=== PATIENT | female | born 1985 | race Two or more races ===

== ENCOUNTER 2016-06-13 22:46 | Emergency (ER) | payer MEDICARE, MEDICAID ==
[2016-06-14 01:51] LABS: APPEARANCE,URINE SLIGHTLY-CLOUDY; BILIRUBIN,URINE NEGATIVE (NEGATIVE); GLUCOSE, URINE NEGATIVE (NEGATIVE); KETONES,URINE NEGATIVE (NEGATIVE); LEUKOCYTE ESTERASE,URINE NEGATIVE (NEGATIVE); NITRITE,URINE NEGATIVE (NEGATIVE); PROTEIN,URINE NEGATIVE (NEGATIVE); URINE SPECIFIC GRAVITY 1.015; UROBILINOGEN,URINE NEGATIVE mg/dL (<2.0)
[2016-06-14] MEDS ORDERED: AZITHROMYCIN 250 MG TABLET PO ONE (03:38)
[2016-06-14] MEDS ORDERED: ACETAMINOPHEN 325 MG TABLET PO ONE (03:38)
[2016-06-14] MEDS ORDERED: DEXAMETHASONE SOD PHOS INJ 10 MG/1 ML VIAL IM ONE (03:39)
--- NOTE | 2016-06-14 03:42 | ER Document Report ---
ED Respiratory Problem - General Chief Complaint: Chest Wall Pain Stated Complaint: DIFFICULTY BREATHING Time seen by provider: 03:37 Mode of Arrival: Ambulatory Information source: Patient Notes: 30-year-old female presents to ED for cough congestion runny nose with painful sinuses excessive drainage for over a week states she has been having chest wall pain from the amount of coughing she is doing. States she's been using her inhalers with no relief. States she used all the [id number] medicines with no relief. TRAVEL OUTSIDE OF THE [place] IN LAST 30 DAYS: No - HPI Patient complains to provider of: Cough Onset: Last week Duration: Continuous Initiating Event: URI Quality of pain: Achy Context: Hx asthma, Other - Cerebral palsy Short of Breath: Mild Cough: Productive - States she does not look at the mucous that does not O we' ll call Sputum amount: Moderate Sputum consistency: Thick At home treatment: Bronchodilators Associated symptoms: Chest pain/discomfort - Chest wall pain from coughing, Congestion, Cough, PND, Runny nose, Sinus pain/pressure Similar symptoms previously: Yes Recently seen / treated by doctor: No - Related Data Allergies/Adverse Reactions: hydromorphone HCl [From Dilaudid] Allergy (Verified 04/09/15 09:23) ketorolac tromethamine [From Toradol] Allergy (Verified 04/09/15 09:23) promethazine HCl [From Phenergan] Allergy (Verified 04/09/15 09:23) Past Medical History - General Information source: Patient - Social History Smoking Status: Never Smoker Cigarette use (# per day): No Chew tobacco use (# tins/day): No Smoking Education Provided: No Frequency of alcohol use: Occasional Drug Abuse: None Occupation: [employer] Lives with: Alone - Home with her children Family History: Arthritis, CAD, DM, Hypertension, Malignancy, Thyroid Disfunction, Other - Uncle of an aneurysm Patient has suicidal ideation: No Patient has homicidal ideation: No - Past Medical History Cardiac Medical History: Reports: Other - angio edema Pulmonary Medical History: Reports: Hx Asthma, Hx Bronchitis EENT Medical History: Reports: None Neurological Medical History: Reports: Hx Migraine Endocrine Medical History: Reports: Hx Hypothyroidism Renal/ Medical History: Reports: Hx Ovarian Cysts Malignancy Medical History: Reports: None GI Medical History: Reports: Hx Irritable Bowel Musculoskeltal Medical History: Reports Hx Muscle Spasm, Reports Hx Musculoskeletal Deformity - Left leg 1 inch shorter than right, Reports Other - Cerebral palsy Skin Medical History: Reports None Psychiatric Medical History: Reports: None Traumatic Medical History: Reports: None Infectious Medical History: Reports: None Past Surgical History: Reports: Hx Adenoidectomy, Hx Cholecystectomy, Hx Gynecologic Surgery - ovarian cyst, Hx Orthopedic Surgery, Hx Tonsillectomy - Immunizations Hx Diphtheria, Pertussis, Tetanus Vaccination: Yes Review of Systems - Review of Systems Constitutional: Recent illness EENT: Nose discharge, Sinus pressure, Sinus discharge Cardiovascular: Chest pain - Chest wall pain from cough Respiratory: Cough, Wheezing Gastrointestinal: No symptoms reported Genitourinary: No symptoms reported Female Genitourinary: No symptoms reported Musculoskeletal: No symptoms reported Skin: No symptoms reported Hematologic/Lymphatic: No symptoms reported Neurological/Psychological: No symptoms reported -: Yes All other systems reviewed and negative Physical Exam - Vital signs Vitals: Temp Pulse Resp BP 98.0 F 82 18 124/85 06/13/16 23:10 06/13/16 23:10 06/13/16 23:10 06/13/16 23:10 Interpretation: Normal - General General appearance: Appears well, Alert - HEENT Head: Normocephalic, Atraumatic Eyes: Normal Pupils: PERRL Ears: Normal External canal: Normal Tympanic membrane: Normal Sinus: Frontal, Maxillary, Tenderness. No: Redness, Swelling Nasal: Purulent discharge, Swelling Mouth/Lips: Normal Mucous membranes: Normal Pharynx: Post nasal drainage. No: Erythema, Exudate, Tonsillar hypertrophy Neck: Normal - Respiratory Respiratory status: No respiratory distress Chest status: Tender Breath sounds: Productive cough. No: Rales, Rhonchi, Stridor, Wheezing Chest palpation: Normal - Cardiovascular Rhythm: Regular Heart sounds: Normal auscultation Murmur: No - Abdominal Inspection: Normal Distension: No distension Bowel sounds: Normal Tenderness: Nontender Organomegaly: No organomegaly - Back Back: Normal, Nontender - Extremities General upper extremity: Normal inspection, Nontender, Normal color, Normal ROM , Normal temperature General lower extremity: Normal inspection, Nontender, Normal color, Normal ROM , Normal temperature, Normal weight bearing. No: Drew's sign - Neurological Neuro grossly intact: Yes Cognition: Normal Orientation: AAOx4 Sparks Coma Scale Eye Opening: Spontaneous Sparks Coma Scale Verbal: Oriented Sparks Coma Scale Motor: Obeys Commands Maria De Jesus Coma Scale Total: 15 Speech: Normal Motor strength normal: LUE, RUE, LLE, RLE Sensory: Normal - Psychological Associated symptoms: Normal affect, Normal mood - Skin Skin Temperature: Warm Skin Moisture: Dry Skin Color: Normal Course - Re-evaluation Re-evalutation: 06/14/16 03:50 Discussed chest x-ray with patient and written report given to patient. Patient treated with azithromycin and steroids for her sinusitis and cough. - Vital Signs Vital signs: Temp Pulse Resp BP Pulse Ox 98.0 F 82 18 124/85 06/13/16 23:10 06/13/16 23:10 06/13/16 23:10 06/13/16 23:10 - Diagnostic Test Radiology reviewed: Image reviewed, Reports reviewed Discharge - Discharge Clinical Impression: Sinusitis Qualifiers: Sinusitis location: unspecified location Chronicity: acute Recurrence: non- recurrent Qualified Code(s): J01.90 - Acute sinusitis, unspecified Upper respiratory infection Qualifiers: URI type: unspecified URI Qualified Code(s): J06.9 - Acute upper respiratory infection, unspecified Condition: Stable Disposition: HOME, SELF-CARE Additional Instructions: UPPER RESPIRATORY ILLNESS: You have a viral infection of the respiratory passages -- a "cold." This common infection causes nasal congestion, drainage, and often sore throat and cough. It is highly contagious. The disease usually lasts about 10 to 14 days. There is no "cure" for the viral infection -- it must run its course. If there is a complication, such as bacterial infection in the nose, sinuses, middle ear, or bronchial tubes, antibiotics may be required. The antibiotics won't affect the virus. Drink plenty of fluids. A humidifier may help. An expectorant medication or decongestant may make you more comfortable. Use acetaminophen or ibuprofen for fever or aches. See the doctor if fever persists over two days, if there is any significant worsening of your symptoms, or if you simply fail to improve as expected. COUGH-SUPPRESSANT & EXPECTORANT MEDICATION: You are to use a cough medication as needed for relief of symptoms. This medicine is a combination of an expectorant (to make the mucous thinner and more easily "coughed up") and a cough suppressant (to reduce the frequency of coughing). The cough-suppressant medicine is related to narcotics. You may experience mild nausea and sleepiness. Some patients who are very sensitive to narcotics may have stomach pain from this medicine. Taking the medicine with food reduces these side effects. Do not drive or work with machinery until you know how this medicine affects you. The expectorant should have no side effects. Iodine-containing expectorants (such as organidin) should not be taken by persons with active thyroid disease unless approved by your doctor. Call the doctor if you develop shortness of breath, hives, rash, itching, lightheadedness, or severe nausea and vomiting. Sinusitis You have sinusitis, an infection of the sinus cavities of the face. The sinuses are air-filled chambers which open into the inside of the nose. Bacteria and pus fill a sinus, causing pain, drainage, and fever. Sinusitis is treated with antibiotics. Often, expectorants (to thin the sinus mucous) or decongestants (to reduce swelling) are prescribed as well. Healing requires seven to 10 days. Avoid chemical fumes, pollens, dusts, and smoke (especially cigarette smoke ). Keep the air humidified in your bedroom and work area and take plenty of liquids by mouth. This condition can be serious if the infection spreads. If your symptoms worsen, or if you develop severe headache, high fever, stiff neck, or a rash, you must call the doctor or return for re-evaluation. Azithromycin Azithromycin (Zithromax) is a broad spectrum antibiotic in the same class as erythromycin. It can treat a variety of bacterial infections, but is most frequently used for respiratory infections. Azithromycin is extremely long-lasting. It accumulates in body tissues and continues to kill bacteria for many days. In order to improve absorption, Azithromycin should be taken at least one hour before or two hours after a meal. It does not have the same strong tendency to upset the stomach as erythromycin and is usually very well tolerated. Patients who have had a rash or other true allergic reactions to erythromycin should not take this medication. Call if you develop gastrointestinal distress, severe diarrhea, rash, hives, itching, or shortness of breath. STEROID MEDICATION: You have been given an injection of or oral medicine of the cortisone/ steroid class. This medication is used to control inflammation or allergy. Guille t is usually only given for a short period of time, until the acute process subsides. There are usually no side effects from short-term use of cortisone-like medications. Some persons feel an increased sense of well-being and are not sleepy at bedtime. Long-term use of cortisone medications is best avoided, unless required for a severe condition. If your condition does not remit, or relapses after the course of corticosteroid medication, you should consult your physician. USE OF ACETAMINOPHEN (Tylenol): Acetaminophen may be taken for pain relief or fever control. It's much safer than aspirin, offering a wider range of "safe" dosages. It is safe during . Some brand names are Tylenol, Panadol, Datril, Anacin 3, Tempra, and Liquiprin. Acetaminophen can be repeated every four hours. The following are maximum recommended dosages: >89 pounds or adults 650 mg to 900 mg Acetaminophen can be repeated every four hours. Maximum dose not to exceed 4000 mg a day. FOLLOW-UP CARE: If you have been referred to a physician for follow-up care, call the physician s office for an appointment as you were instructed or within the next two days. If you experience worsening or a significant change in your symptoms, notify the physician immediately or return to the Emergency Department at any time for re-evaluation. Prescriptions: Azithromycin [Zithromax 250 mg Tablet] 250 mg PO DAILY #4 tablet Forms: Return to Work [facility] [Provider Group] - Follow up as needed
[2016-06-14 07:05] VITALS: BP 122/89
== END 2016-06-14 04:12 | disposition home or self-care (01) ==
LOC: ER 22:46
DX: J01.90 Acute sinusitis, unspecified (principal); J06.9 Acute upper respiratory infection, unspecified; R07.89 Other chest pain; R06.00 Dyspnea, unspecified; E03.9 Hypothyroidism, unspecified; Z90.49 Acquired absence of other specified parts of digestive tract
CPT/HCPCS: 99285; 96372; 81025; 81001; 71020; A9270; J1100

== ENCOUNTER → 2016-08-02 | Outpatient (CLI) | payer MEDICARE, MEDICAID ==
[2016-08-03 18:31] LABS: ABSOLUTE EOSINOPHILS # (AUTO) 0.1 10^3/uL (0.0-0.6); ABSOLUTE LYMPHOCYTES (AUTO) 3.6 10^3/uL (0.5-4.7); ABSOLUTE MONOCYTES (AUTO) 0.6 10^3/uL (0.1-1.4); BASOPHILS % (AUTO) 0.5 % (0-2); HEMATOCRIT 37.3 % (36.0-47.0); HEMOGLOBIN 12.5 g/dL (12.0-15.5); HGB HCT DIFFERENCE 0.2; LYMPHOCYTES % (AUTO) 38.3 % (13-45); MEAN CORPUSCULAR HEMOGLOBIN 31.2 pg (27.0-33.4); MEAN CORPUSCULAR HGB CONC 33.4 g/dL (32.0-36.0); MEAN CORPUSCULAR VOLUME 93 fl (80-97); MONOCYTES % (AUTO) 6.2 % (3-13); RED CELL DISTRIBUTION WIDTH 12.8 % (11.5-14.0); WHITE BLOOD COUNT 9.3 10^3/uL (4.0-10.5)
== END ==
LOC: OD 12:45
PROVIDERS: ATTEND Family Medicine
DX: M54.5 Low back pain (principal); D50.9 Iron deficiency anemia, unspecified
CPT/HCPCS: 36415; 82728; 83540; 83550; 85025

== ENCOUNTER 2016-09-05 20:56 | Emergency (ER) | payer MEDICARE, MEDICAID ==
[2016-09-05 21:05] VITALS: BP 120/86
[2016-09-05] MEDS ORDERED: DIPHENHYDRAMINE HCL 50 MG CAPSULE PO ONE (21:25)
[2016-09-05] MEDS ORDERED: LORAZEPAM INJ 2 MG/1 ML VIAL IV ONE (21:38)
[2016-09-05] MEDS ORDERED: ONDANSETRON HCL INJ/PF 4 MG/2 ML SDV IV ONE (22:14)
--- NOTE | 2016-09-05 22:27 | ER Document Report ---
ED General - General Chief Complaint: Allergic Reaction Stated Complaint: POSSIBLE ALLERGIC REACTION Mode of Arrival: Ambulatory Information source: Patient Notes: 30-year-old female history of cerebral palsy presents with complaints of itchy rash on neck sensation that her neck was swelling and then having left hand arm numbness. Patient denies any weakness in the arm, patient denies any previous CVA TRAVEL OUTSIDE OF THE [place] IN LAST 30 DAYS: No - HPI Onset: Just prior to arrival Onset/Duration: Sudden Quality of pain: Other - Pins and needle sensation Severity: Mild Pain Level: Denies Associated symptoms: Other Exacerbated by: Denies Relieved by: Denies Similar symptoms previously: No Recently seen / treated by doctor: No - Related Data Allergies/Adverse Reactions: hydromorphone HCl [From Dilaudid] Allergy (Verified 07/18/16 08:47) ketorolac tromethamine [From Toradol] Allergy (Verified 07/18/16 08:47) promethazine HCl [From Phenergan] Allergy (Verified 07/18/16 08:47) Past Medical History - Social History Smoking Status: Never Smoker Cigarette use (# per day): No Chew tobacco use (# tins/day): No Smoking Education Provided: No Family History: Arthritis, CAD, DM, Hypertension, Malignancy, Thyroid Disfunction, Other - Uncle of an aneurysm Patient has suicidal ideation: No Patient has homicidal ideation: No Pulmonary Medical History: Reports: Hx Asthma, Hx Bronchitis Neurological Medical History: Reports: Hx Migraine Endocrine Medical History: Reports: Hx Hypothyroidism Renal/ Medical History: Reports: Hx Ovarian Cysts. Denies: Hx Peritoneal Dialysis GI Medical History: Reports: Hx Irritable Bowel Musculoskeltal Medical History: Reports Hx Muscle Spasm, Reports Hx Musculoskeletal Deformity - Left leg 1 inch shorter than right Past Surgical History: Reports: Hx Adenoidectomy, Hx Cholecystectomy, Hx Gynecologic Surgery - ovarian cyst, Hx Orthopedic Surgery, Hx Tonsillectomy - Immunizations Hx Diphtheria, Pertussis, Tetanus Vaccination: Yes Review of Systems - Review of Systems Notes: PHYSICAL EXAMINATION: GENERAL: Well-appearing, well-nourished and in no acute distress. HEAD: Atraumatic, normocephalic. EYES: Pupils equal round and reactive to light, extraocular movements intact, conjunctiva are normal. ENT: Nares patent, oropharynx clear without exudates. Moist mucous membranes. NECK: Normal range of motion, supple without lymphadenopathy LUNGS: Breath sounds clear to auscultation bilaterally and equal. No wheezes rales or rhonchi. HEART: Regular rate and rhythm without murmurs ABDOMEN: Soft, nontender, nondistended abdomen. No guarding, no rebound. No masses appreciated. Female : deferred Musculoskeletal: Normal range of motion, no pitting or edema. No cyanosis. NEUROLOGICAL: Baseline speech, patient has good strength in the left upper extremity she does have subjective paresthesia of the left hand PSYCH: Normal mood, normal affect. SKIN: Mild erythema around the neck but appears to be to bug bites Physical Exam - Vital signs Vitals: Temp Pulse Resp BP Pulse Ox 98.3 F 100 24 H 120/86 H 97 09/05/16 21:02 09/05/16 21:02 09/05/16 21:02 09/05/16 21:02 09/05/16 21:02 Course - Re-evaluation Re-evalutation: 09/05/16 22:26 Patient is probably having an allergic reaction however CT head has been ordered to rule out an acute CVA 09/05/16 22:57 CT of the head noted no acute abnormality, I evaluated the patient multiple times, each time patient states she cannot lift her arm over and lifted she is able to push against me and is able to hold her arm up with no difficulty. Patient moves her arm with no difficulty patient has very strong strength equal in bilateral upper extremities. Given that I am not seeing any life- threatening issues I believe patient is stable for discharge. Given that symptoms occurred after a bug bite and patient had neck swelling sensation this may be an impingement of nerve I will give patient follow-up with neurology for reevaluation After performing a Medical Screening Examination, I estimate there is LOW risk for ACUTE GLAUCOMA, TEMPORAL ARTERITIS, MENINGITIS, INCRANIAL HEMORRHAGE, or ISCHEMIC STROKE thus I consider the discharge disposition reasonable. I have reevaluated this patient multiple times and no significant life threatening changes are noted. The patient and I have discussed the diagnosis and risks, and we agree with discharging home with close follow-up with the understanding that symptoms and presentations can change. We also discussed returning to the Emergency Department immediately if new or worsening symptoms occur. We have discussed the symptoms which are most concerning (e.g., changing or worsening symptoms, new numbness or weakness, vomiting, fever) that necessitate immediate return. - Vital Signs Vital signs: Temp Pulse Resp BP Pulse Ox 98.3 F 100 24 H 120/86 H 97 09/05/16 21:02 09/05/16 21:02 09/05/16 21:02 09/05/16 21:02 09/05/16 21:02 - Diagnostic Test Radiology reviewed: Image reviewed, Reports reviewed Discharge - Discharge Clinical Impression: Left arm numbness Bug bite Qualifiers: Encounter type: initial encounter Qualified Code(s): W57.XXXA - Bitten or stung by nonvenomous insect and other nonvenomous arthropods, initial encounter Condition: Stable Disposition: HOME, SELF-CARE Instructions: Numbness or Paresthesia ([facility]) Prescriptions: Prednisone [Deltasone 20 mg Tablet] 3 tab PO DAILY 5 Days Referrals: MELCHOR LIZAMA MD [ACTIVE STAFF] - Follow up tomorrow
--- NOTE | 2016-09-05 23:01 | ER Document Report ---
Doctor's Note Notes: 09/05/16 22:59 Dr. Harry's any requested I evaluate the patient just to give my impression of the patient. Patient says she was put on left side of the neck with a bug. She says that she had noticed some initial swelling as well as Tim. She says she has difficulty picking up her left arm after being bit. Her exam is confusing being that the patient says she cannot lift her left arm; however, I can picker tender her left arm and she will hold it up in the air by difficulties. I will picker tender her left arm and leave it in internal rotation. I will then picker tender even external rotation. She is actually very strong unable to hold up her arm without any difficulty. She is able to hold it up at 45. She's able to hold it up at 90. When I go to picker tender her arm she resists me some at times. She obviously has the ability to lift her arm but it's continues to say she can' t even though she is able to hold her arm up against gravity and also against resistance with by difficulty. I do not think this is a stroke at this time. Dr. Lei to continue his workup and disposition.
== END 2016-09-05 23:41 | disposition home or self-care (01) ==
LOC: ER 20:56
DX: S10.96XA Insect bite of unspecified part of neck, initial encounter (principal); R20.0 Anesthesia of skin; W57.XXXA Bitten or stung by nonvenomous insect and other nonvenomous arthropods, initial encounter; J45.909 Unspecified asthma, uncomplicated; Z88.5 Allergy status to narcotic agent; Z88.8 Allergy status to other drugs, medicaments and biological substances
CPT/HCPCS: 99283; 96374; 96375; 70450; A9270; J2060; J2405

== ENCOUNTER 2016-10-14 19:51 | Emergency (ER) | payer MEDICARE, MEDICAID ==
[2016-10-14] MEDS ORDERED: DIPHENHYDRAMINE HCL 50 MG/ML VIAL IV ONE (21:21)
[2016-10-14] MEDS ORDERED: NORMAL SALINE 1000 ML 1,000 ML IV ONE (21:21)
[2016-10-14] MEDS ORDERED: OXYCODONE-ACETAMINOPHEN 5-325 MG TABLET PO ONE (21:21)
--- NOTE | 2016-10-14 21:23 | ER Document Report ---
ED GI/ - General Chief Complaint: Abdominal Pain Stated Complaint: ABDOMINAL PAIN Time Seen by Provider: 10/14/16 21:10 Mode of Arrival: Ambulatory Information source: Patient Notes: Patient states that she developed right lateral side abdominal pain this afternoon. Patient states she has had nausea and diarrhea 2 episodes. Patient states that her abdomen seemed to be distended and was moving and bulging on the right side today. Patient denies any fever, vaginal bleeding or discharge. Patient reports a decrease in her urine output today. Patient denies any concern about any sexually transmitted infection, patient denies vaginal bleeding. TRAVEL OUTSIDE OF THE [place] IN LAST 30 DAYS: No - HPI Patient complains to provider of: Abdominal pain. No: Vomiting Onset: This afternoon Timing/Duration: Waxing and waning Quality of pain: Sharp Pain Level: 3 Location: Other - right lateral side Vaginal bleeding (Compared to normal period): None Sexual history: Active Associated symptoms: Diarrhea, Loss of appetite, Nausea. denies: Dysuria, Fever , Urinary hesitancy, Urinary frequency, Urinary retention, Urinary urgency, Vomiting Exacerbated by: Denies Relieved by: Denies Similar symptoms previously: No Recently seen / treated by doctor: No - Related Data Allergies/Adverse Reactions: hydromorphone HCl [From Dilaudid] Allergy (Verified 07/18/16 08:47) ketorolac tromethamine [From Toradol] Allergy (Verified 07/18/16 08:47) promethazine HCl [From Phenergan] Allergy (Verified 07/18/16 08:47) Past Medical History - General Information source: Patient Last Menstrual Period: 2 weeks ago - Social History Smoking Status: Never Smoker Frequency of alcohol use: Occasional Drug Abuse: None Occupation: [employer] Lives with: Family Family History: Arthritis, CAD, DM, Hypertension, Malignancy, Thyroid Disfunction, Other - Uncle of an aneurysm Patient has suicidal ideation: No Patient has homicidal ideation: No - Medical History Medical History: Other - Cerebral palsy Pulmonary Medical History: Reports: Hx Asthma, Hx Bronchitis Neurological Medical History: Reports: Hx Migraine Endocrine Medical History: Reports: Hx Hypothyroidism Renal/ Medical History: Reports: Hx Ovarian Cysts. Denies: Hx Peritoneal Dialysis GI Medical History: Reports: Hx Irritable Bowel Musculoskeltal Medical History: Reports Hx Muscle Spasm, Reports Hx Musculoskeletal Deformity - Left leg 1 inch shorter than right Past Surgical History: Reports: Hx Adenoidectomy, Hx Cholecystectomy, Hx Gynecologic Surgery - ovarian cyst, Hx Orthopedic Surgery, Hx Tonsillectomy - Immunizations Hx Diphtheria, Pertussis, Tetanus Vaccination: Yes Review of Systems - Review of Systems Constitutional: No symptoms reported. denies: Fever, Recent illness EENT: No symptoms reported Cardiovascular: No symptoms reported Respiratory: No symptoms reported. denies: Cough, Short of breath Gastrointestinal: Abdomen distended - on right lateral side, Abdominal pain, Diarrhea, Nausea, Poor appetite. denies: Vomiting, Rectal bleeding Genitourinary: Other - decreased urine output. denies: Dysuria, Discharge, Flank pain Female Genitourinary: No symptoms reported. denies: Vaginal bleeding Musculoskeletal: No symptoms reported. denies: Back pain Skin: No symptoms reported Hematologic/Lymphatic: No symptoms reported Neurological/Psychological: No symptoms reported Physical Exam - Vital signs Vitals: Temp Pulse Resp BP Pulse Ox 98.6 F 88 20 126/83 H 96 10/14/16 20:31 10/14/16 20:31 10/14/16 20:31 10/14/16 20:31 10/14/16 20:31 - General General appearance: Appears well, Alert In distress: None - HEENT Head: Normocephalic, Atraumatic Eyes: Normal Conjunctiva: Normal Nasal: Normal Mouth/Lips: Normal Mucous membranes: Normal Neck: Normal, Supple. No: Lymphadenopathy - Respiratory Respiratory status: No respiratory distress Chest status: Nontender Breath sounds: Normal. No: Rales, Rhonchi, Stridor, Wheezing Chest palpation: Normal - Cardiovascular Rhythm: Regular Heart sounds: S1 appreciated, S2 appreciated Murmur: No - Abdominal Inspection: Normal Distension: No distension Bowel sounds: Normal Tenderness: Tender - RLQ, right lateral side. No: Guarding Organomegaly: No organomegaly - Back Back: CVA tenderness - right - Extremities General upper extremity: Normal inspection, Normal strength General lower extremity: Normal inspection, Normal strength - Neurological Neuro grossly intact: Yes [place] Coma Scale Eye Opening: Spontaneous [place] Coma Scale Verbal: Oriented [place] Coma Scale Motor: Obeys Commands Maria De Jesus Coma Scale Total: 15 - Psychological Associated symptoms: Normal affect, Normal mood - Skin Skin Temperature: Warm Skin Moisture: Dry Skin Color: Normal Course - Re-evaluation Re-evalutation: 10/15/16 23:35 Patient continues to have right nominal wall and lower abdominal tenderness with palpation of abdomen. Patient denies any concerns about any STD and declines pelvic examination at this time. Imaging test ordered. 10/15/2016 02:53 Pt with right lateral abdominal wall tenderness. Abdomen soft, no guarding, patient nontoxic in appearance. Discussed results of patient's diagnostic tests and CT report. Patient presents with abdominal pain without signs of peritonitis or other life-threatening or serious etiology. Patient appears stable for discharge and has been instructed to return immediately if the symptoms worsen in any way, or in 8-12 hours if not improved for reevaluation. The patient has been instructed to return if the symptoms worsen or change in any way. 10/15/16 03:03 Recorded imaging of her abdomen when she was having muscles symptoms on her phone and showed provider this. She does take Flexeril at home for muscle spasms although does not typically have been involving her abdominal muscles. 10/15/16 03:[address] mata who agrees with plan of care. - Vital Signs Vital signs: Temp Pulse Resp BP Pulse Ox 98.6 F 56 L 18 107/78 99 10/14/16 20:31 10/15/16 03:19 10/15/16 03:19 10/15/16 03:19 10/15/16 03:19 - Laboratory Result Diagrams: 10/14/16 21:42 10/14/16 21:42 Laboratory results interpreted by me: Labs- Entire Visit 10/14/16 10/14/16 10/14/16 21:42 21:42 21:42 WBC 6.6 RBC 4.27 Hgb 13.2 Hct 40.2 MCV 94 MCH 30.9 MCHC 32.8 RDW 12.2 Plt Count 224 Seg Neutrophils % 52.3 Lymphocytes % 36.9 Monocytes % 8.9 Eosinophils % 1.6 Basophils % 0.3 Absolute Neutrophils 3.4 Absolute Lymphocytes 2.4 Absolute Monocytes 0.6 Absolute Eosinophils 0.1 Absolute Basophils 0.0 Sodium 144.6 Potassium 4.2 Chloride 105 Carbon Dioxide 27 Anion Gap 13 BUN 19 Creatinine 0.97 Est GFR ( Amer) > 60 Est GFR (Non-Af Amer) > 60 Glucose 84 Calcium 9.5 Total Bilirubin 0.4 Direct Bilirubin 0.3 Indirect Bilirubin Not Reportable Neonat Total Bilirubin Not Reportable AST 31 ALT 47 Alkaline Phosphatase 81 Total Protein 8.0 Albumin 4.5 Lipase 89.3 Serum HCG, Qual NEGATIVE Urine Color Urine Appearance Urine pH Ur Specific Jenkins Urine Protein Urine Glucose (UA) Urine Ketones Urine Blood Urine Nitrite Urine Bilirubin Urine Urobilinogen Ur Leukocyte Esterase Urine WBC (Auto) Urine RBC (Auto) Urine Bacteria (Auto) Squamous Epi Cells Auto Urine Mucus (Auto) Urine Ascorbic Acid 10/14/16 22:00 WBC RBC Hgb Hct MCV MCH MCHC RDW Plt Count Seg Neutrophils % Lymphocytes % Monocytes % Eosinophils % Basophils % Absolute Neutrophils Absolute Lymphocytes Absolute Monocytes Absolute Eosinophils Absolute Basophils Sodium Potassium Chloride Carbon Dioxide Anion Gap BUN Creatinine Est GFR ( Amer) Est GFR (Non-Af Amer) Glucose Calcium Total Bilirubin Direct Bilirubin Indirect Bilirubin Neonat Total Bilirubin AST ALT Alkaline Phosphatase Total Protein Albumin Lipase Serum HCG, Qual Urine Color YELLOW Urine Appearance SLIGHTLY-CLOUDY Urine pH 6.0 Ur Specific Jenkins 1.030 Urine Protein NEGATIVE Urine Glucose (UA) NEGATIVE Urine Ketones NEGATIVE Urine Blood NEGATIVE Urine Nitrite NEGATIVE Urine Bilirubin NEGATIVE Urine Urobilinogen NEGATIVE Ur Leukocyte Esterase NEGATIVE Urine WBC (Auto) 3 Urine RBC (Auto) 0 Urine Bacteria (Auto) TRACE Squamous Epi Cells Auto 1 Urine Mucus (Auto) RARE Urine Ascorbic Acid NEGATIVE 10/15/16 02:57 10/15/16 04:35 - Diagnostic Test Radiology reviewed: Reports reviewed Discharge - Discharge Clinical Impression: Spasm of abdominal muscles of right side Abdominal pain Qualifiers: Abdominal location: right lower quadrant Qualified Code(s): R10.31 - Right lower quadrant pain Condition: Stable Disposition: HOME, SELF-CARE Instructions: Abdominal Pain ([facility]), Observation for Appendicitis ([facility]) Additional Instructions: Return immediately for any new or worsening symptoms Followup with your primary care provider, call tomorrow to make a followup appointment Take your muscle relaxant medication whenever he returned home Return tomorrow for repeat abdominal exam if you are having any continued abdominal pain. Return immediately for any worsening of symptoms Prescriptions: Polyethylene Glycol 3350 [Miralax] 17 gm PO DAILY #119 gm Referrals: AYE BOYD DO [Primary Care Provider] - Follow up tomorrow
[2016-10-14 22:06] LABS: ALANINE AMINOTRANSFERASE 47 U/L (9-52); ALBUMIN 4.5 g/dL (3.5-5.0); ALKALINE PHOSPHATASE 81 U/L (38-126); ANION GAP 13 (5-19); ASPARTATE AMINO TRANSFERASE 31 U/L (14-36); BILIRUBIN,DIRECT 0.3 mg/dL (0.0-0.4); BILIRUBIN,TOTAL 0.4 mg/dL (0.2-1.3); BLOOD UREA NITROGEN 19 mg/dL (7-20); CALCIUM 9.5 mg/dL (8.4-10.2); CARBON DIOXIDE 27 mmol/L (22-30); CHLORIDE 105 mmol/L (98-107); CREATININE RESULT 0.97 mg/dL (0.52-1.25); GLUCOSE 84 mg/dL (75-110); LIPASE 89.3 U/L (23-300); POTASSIUM 4.2 mmol/L (3.6-5.0); SODIUM 144.6 mmol/L (137-145)
[2016-10-14 22:10] LABS: ABSOLUTE EOSINOPHILS # (AUTO) 0.1 10^3/uL (0.0-0.6); ABSOLUTE LYMPHOCYTES (AUTO) 2.4 10^3/uL (0.5-4.7); ABSOLUTE MONOCYTES (AUTO) 0.6 10^3/uL (0.1-1.4); ABSOLUTE NEUT (AUTO) 3.4 10^3/uL (1.7-8.2); BASOPHILS % (AUTO) 0.3 % (0-2); EOSINOPHILS % (AUTO) 1.6 % (0-6); HEMATOCRIT 40.2 % (36.0-47.0); HEMOGLOBIN 13.2 g/dL (12.0-15.5); HGB HCT DIFFERENCE -0.6; LYMPHOCYTES % (AUTO) 36.9 % (13-45); MEAN CORPUSCULAR HEMOGLOBIN 30.9 pg (27.0-33.4); MEAN CORPUSCULAR HGB CONC 32.8 g/dL (32.0-36.0); MEAN CORPUSCULAR VOLUME 94 fl (80-97); MONOCYTES % (AUTO) 8.9 % (3-13); RED BLOOD COUNT 4.27 10^6/uL (3.72-5.28); RED CELL DISTRIBUTION WIDTH 12.2 % (11.5-14.0); SEGMENTED NEUTROPHILS % (AUTO) 52.3 % (42-78); WHITE BLOOD COUNT 6.6 10^3/uL (4.0-10.5)
[2016-10-14 22:34] LABS: APPEARANCE,URINE SLIGHTLY-CLOUDY; BILIRUBIN,URINE NEGATIVE (NEGATIVE); GLUCOSE, URINE NEGATIVE (NEGATIVE); KETONES,URINE NEGATIVE (NEGATIVE); LEUKOCYTE ESTERASE,URINE NEGATIVE (NEGATIVE); NITRITE,URINE NEGATIVE (NEGATIVE); PROTEIN,URINE NEGATIVE (NEGATIVE); UROBILINOGEN,URINE NEGATIVE mg/dL (<2.0)
[2016-10-14] MEDS ORDERED: NORMAL SALINE 1000 ML 1,000 ML IV PRN (23:46)
--- NOTE | 2016-10-15 01:18 | RADIOLOGY REPORT (SQ) ---
EXAM DESCRIPTION: CT ABD/PELVIS WITH IV ONLY COMPLETED DATE/TIME: 10/15/2016 1:06 am REASON FOR STUDY: RLQ pain COMPARISON: 07/15/2015. TECHNIQUE: CT scan of the abdomen and pelvis performed using helical scanning technique with dynamic intravenous contrast injection. No oral contrast. Images reviewed with lung, soft tissue, and bone windows. Reconstructed coronal and sagittal MPR images reviewed. Delayed images for evaluation of the urinary system also acquired. All images stored on PACS. All CT scanners at this facility use dose modulation, iterative reconstruction, and/or weight based d osing when appropriate to reduce radiation dose to as low as reasonably achievable (ALARA). [facility]: Dose Right [facility]: CareDose [facility]: Dose Right [facility]: Teradose 4D [facility]: [place] CONTRAST TYPE AND DOSE: 66 mL Isovue 370- low osmolar. RENAL FUNCTION: BUN 19 creatinine 0.97. RADIATION DOSE: 14.68mGy. LIMITATIONS: None. FINDINGS: LOWER CHEST: No significant findings. No nodules or infiltrates. LIVER: Normal size. No masses or dilated ducts. SPLEEN: Normal size. No focal lesions. PANCREAS: No masses. No significant calcifications. No adjacent inflammation or peripancreatic fluid collections. Pancreatic duct not dilated. GALLBLADDER: Surgically absent. ADRENAL GLANDS: No significant masses or asymmetry. RIGHT KIDNEY AND URETER: No solid masses. No significant calcifications. No hydronephrosis or hyd roureter. LEFT KIDNEY AND URETER: No solid masses. No significant calcifications. No hydronephrosis or hydr oureter. AORTA AND VESSELS: No aneurysm. No dissection. Renal arteries, SMA, celiac without stenosis. RETROPERITONEUM: No retroperitoneal adenopathy, hemorrhage or masses. BOWEL AND PERITONEAL CAVITY: No masses or inflammatory changes. No free fluid or peritoneal masses. APPENDIX: Not visualized. PELVIS: No mass or free fluid. Normal bladder. ABDOMINAL WALL: No masses. No hernias. BONES: No significant or acute findings. OTHER: No other significant finding. IMPRESSION: NO SIGNIFICANT OR ACUTE FINDING IN THE ABDOMEN OR PELVIS ON CT SCAN WITH IV CONTRAST. TECHNICAL DOCUMENTATION: JOB ID: [id number] Quality ID # [id number]: Final reports with documentation of one or more dose reduction techniques (e.g., Au tomated exposure control, adjustment of the mA and/or kV according to patient size, use of iterative reconstruction technique) 2010 [employer]- All Rights Reserved
[2016-10-15 03:20] VITALS: BP 107/78
== END 2016-10-15 03:20 | disposition home or self-care (01) ==
LOC: ER 19:51
DX: M62.838 Other muscle spasm (principal); R10.31 Right lower quadrant pain; R14.0 Abdominal distension (gaseous); R11.0 Nausea; R19.7 Diarrhea, unspecified; R39.89 Other symptoms and signs involving the genitourinary system; R63.0 Anorexia; J45.909 Unspecified asthma, uncomplicated; G80.9 Cerebral palsy, unspecified; Z88.5 Allergy status to narcotic agent; Z88.8 Allergy status to other drugs, medicaments and biological substances; Z87.42 Personal history of other diseases of the female genital tract; Z90.49 Acquired absence of other specified parts of digestive tract
CPT/HCPCS: 99284; 96374; 36415; 83690; 84703; 85025; 80053; 81001; 74177; J1200; A9270; J7030

== ENCOUNTER 2017-02-02 07:46 | Emergency (ER) | payer MEDICARE, MEDICAID ==
--- NOTE | 2017-02-02 09:25 | ER Document Report ---
ED General - General Chief Complaint: Dizziness Stated Complaint: DIZZINESS Time Seen by Provider: 02/02/17 08:58 Mode of Arrival: Ambulatory Information source: Patient Notes: 31-year-old female history speech impediment presents with complaints of difficulty with her speech. Patient notes that over the past few days she has had sweats 2 body aches. Patient denies any nausea or vomiting feels her throat is swollen but denies any pain Patient admits to dizziness losing her voice TRAVEL OUTSIDE OF THE [place] IN LAST 30 DAYS: No - HPI Onset: Other - 2-3 day duration Onset/Duration: Persistent Quality of pain: Achy Severity: Mild Pain Level: 1 Associated symptoms: Sore throat, Sweating Exacerbated by: Denies Relieved by: Denies Similar symptoms previously: No Recently seen / treated by doctor: No - Related Data Allergies/Adverse Reactions: hydromorphone HCl [From Dilaudid] Allergy (Verified 02/02/17 08:03) ketorolac tromethamine [From Toradol] Allergy (Verified 02/02/17 08:03) promethazine HCl [From Phenergan] Allergy (Verified 02/02/17 08:03) Past Medical History - Social History Smoking Status: Never Smoker Cigarette use (# per day): No Chew tobacco use (# tins/day): No Smoking Education Provided: No Frequency of alcohol use: Rare Drug Abuse: None Family History: Arthritis, CAD, DM, Hypertension, Malignancy, Thyroid Disfunction, Other - Uncle of an aneurysm Patient has suicidal ideation: No Patient has homicidal ideation: No Pulmonary Medical History: Reports: Hx Asthma, Hx Bronchitis Neurological Medical History: Reports: Hx Migraine Endocrine Medical History: Reports: Hx Hypothyroidism Renal/ Medical History: Reports: Hx Ovarian Cysts. Denies: Hx Peritoneal Dialysis GI Medical History: Reports: Hx Irritable Bowel Musculoskeltal Medical History: Reports Hx Muscle Spasm, Reports Hx Musculoskeletal Deformity - Left leg 1 inch shorter than right Past Surgical History: Reports: Hx Abdominal Surgery, Hx Adenoidectomy, Hx Cholecystectomy, Hx Gynecologic Surgery - ovarian cyst, Hx Orthopedic Surgery, Hx Tonsillectomy - Immunizations Hx Diphtheria, Pertussis, Tetanus Vaccination: Yes Review of Systems - Review of Systems Notes: REVIEW OF SYSTEMS: CONSTITUTIONAL : Admits to sweats EENT: Admits to swelling in her throat loss of voice CARDIOVASCULAR: Denies chest pain. Denies palpitations or racing or irregular heart beat. Denies ankle edema. RESPIRATORY: Denies cough, cold, or chest congestion. Denies shortness of breath, difficulty breathing, or wheezing. GASTROINTESTINAL: Denies abdominal pain or distention. Denies nausea, vomiting , or diarrhea. Denies blood in vomitus, stools, or per rectum. Denies black, tarry stools. Denies constipation. GENITOURINARY: Denies difficulty urinating, painful urination, burning, frequency, blood in urine, or discharge. FEMALE GENITOURINARY: Denies vaginal bleeding, heavy or abnormal periods, irregular periods. Denies vaginal discharge or odor. MUSCULOSKELETAL: Admits to body aches. SKIN: Denies rash, lesions or sores. HEMATOLOGIC : Denies easy bruising or bleeding. LYMPHATIC: Denies swollen, enlarged glands. NEUROLOGICAL: Denies confusion or altered mental status. Denies passing out or loss of consciousness. Denies dizziness or lightheadedness. Denies headache. Denies weakness or paralysis or loss of use of either side. Denies problems with gait or speech. Denies sensory loss, numbness, or tingling. Denies seizures. PSYCHIATRIC: Denies anxiety or stress. Denies depression, suicidal ideation, or homicidal ideation. ALL OTHER SYSTEMS REVIEWED AND NEGATIVE. PHYSICAL EXAMINATION: GENERAL: Well-appearing, well-nourished and in no acute distress. HEAD: Atraumatic, normocephalic. EYES: Pupils equal round and reactive to light, extraocular movements intact, conjunctiva are normal. ENT: Speech impediment NECK: Normal range of motion, supple without lymphadenopathy LUNGS: Breath sounds clear to auscultation bilaterally and equal. No wheezes rales or rhonchi. HEART: Regular rate and rhythm without murmurs ABDOMEN: Soft, nontender, nondistended abdomen. No guarding, no rebound. No masses appreciated. Female : deferred Musculoskeletal: Normal range of motion, no pitting or edema. No cyanosis. NEUROLOGICAL: Cranial nerves grossly intact. Normal sensory, motor exams PSYCH: Normal mood, normal affect. SKIN: Warm, Dry, normal turgor, no rashes or lesions noted. Dictation was performed using [employer] voice recognition software Physical Exam - Vital signs Vitals: Temp Pulse Resp BP Pulse Ox 98.5 F 95 14 119/85 99 02/02/17 07:55 02/02/17 07:55 02/02/17 07:55 02/02/17 07:55 02/02/17 07:55 Course - Re-evaluation Re-evalutation: 02/02/17 09:43 Physical examination was quite benign, patient overall looks well vital signs are stable, given her symptoms of laryngitis I will treat her with a dose of Decadron to improve her perceived swelling After performing a Medical Screening Examination, I estimate there is LOW risk for ACUTE CORONARY SYNDROME, RESPIRATORY FAILURE, SEPSIS OR MENINGITIS, thus I consider the discharge disposition reasonable. I have reevaluated this patient multiple times and no significant life threatening changes are noted. The patient and I have discussed the diagnosis and risks, and we agree with discharging home with close follow-up. We also discussed returning to the Emergency Department immediately if new or worsening symptoms occur. We have discussed the symptoms which are most concerning (e.g., changing or worsening pain, trouble swallowing or breathing, neck stiffness, fever) that necessitate immediate return. - Vital Signs Vital signs: Temp Pulse Resp BP Pulse Ox 98.5 F 95 14 119/85 99 02/02/17 07:55 02/02/17 07:55 02/02/17 07:55 02/02/17 07:55 02/02/17 07:55 Discharge - Discharge Clinical Impression: Laryngitis Condition: Stable Disposition: HOME, SELF-CARE Instructions: Laryngitis ([facility]) Additional Instructions: Follow up with your physician tomorrow for further care or return to the ED IMMEDIATELY if symptoms worsen or new concerns occur. If you cannot afford to follow up with your primary care physician a list of low cost clinics have been provided at the end of your discharge papers as well.
[2017-02-02] MEDS ORDERED: DEXAMETHASONE SOD PHOS INJ 10 MG/1 ML VIAL IM ONE (09:41)
[2017-02-02 09:55] VITALS: BP 120/89
== END 2017-02-02 09:55 | disposition home or self-care (01) ==
LOC: ER 07:46
DX: J04.0 Acute laryngitis (principal); R42 Dizziness and giddiness; M79.1 Myalgia; J45.909 Unspecified asthma, uncomplicated; Z90.49 Acquired absence of other specified parts of digestive tract
CPT/HCPCS: 99283; 96372; J1100

== ENCOUNTER 2017-05-17 07:36 | Emergency (ER) | payer MEDICARE, MEDICAID ==
[2017-05-17] MEDS ORDERED: NORMAL SALINE 1000 ML 1,000 ML IV PRN (08:50)
[2017-05-17] MEDS ORDERED: ONDANSETRON HCL INJ/PF 4 MG/2 ML SDV IV ONE (08:51)
--- NOTE | 2017-05-17 09:03 | ER Document Report ---
ED Medical Screen (RME) - General Chief Complaint: Lower Abdominal Pain Stated Complaint: STOMACH PAIN Time Seen by Provider: 05/17/17 08:07 TRAVEL OUTSIDE OF THE [place] IN LAST 30 DAYS: No - HPI Notes: 05/17/17 08:59 31-year-old female presents today with complaints of lower abdominal pain, nausea and lower back pain that started 2 days ago. patient. Pain is 8 out of 10, throbbing achy. Has not tried any [id number] medications for this pain. Patient is not on control. Denies any chest pain, shortness of breath, vomiting, blurred vision, double vision, diarrhea, vaginal discharge/ pain and pelvic pain. Unsure /. reports history of ovarian cysts. Reports pain comes and goes. Reports she did have an episode of painful sex approximately 5 days ago. Denies any fevers or chills. History of cholecystectomy. I have greeted and performed a rapid initial assessment of this patient. A comprehensive ED assessment and evaluation of the patient, analysis of test results and completion of medical decision making process will be conducted by an additional ED providers. 05/17/17 09:24 - Related Data Allergies/Adverse Reactions: hydromorphone HCl [From Dilaudid] Allergy (Verified 05/17/17 07:36) ketorolac tromethamine [From Toradol] Allergy (Verified 05/17/17 07:36) promethazine HCl [From Phenergan] Allergy (Verified 05/17/17 07:36) Past Medical History - Social History Frequency of alcohol use: Occasional Drug Abuse: None Pulmonary Medical History: Reports: Hx Asthma, Hx Bronchitis Neurological Medical History: Reports: Hx Migraine Endocrine Medical History: Reports: Hx Hypothyroidism Renal/ Medical History: Reports: Hx Ovarian Cysts. Denies: Hx Peritoneal Dialysis GI Medical History: Reports: Hx Irritable Bowel Musculoskeltal Medical History: Reports Hx Muscle Spasm, Reports Hx Musculoskeletal Deformity - Left leg 1 inch shorter than right Past Surgical History: Reports: Hx Abdominal Surgery, Hx Adenoidectomy, Hx Cholecystectomy, Hx Gynecologic Surgery - ovarian cyst, Hx Orthopedic Surgery, Hx Tonsillectomy - Immunizations Hx Diphtheria, Pertussis, Tetanus Vaccination: Yes Physical Exam - Vital signs Vitals: Temp Pulse Resp BP Pulse Ox 98.5 F 101 H 14 119/78 100 05/17/17 07:40 05/17/17 07:40 05/17/17 07:40 05/17/17 07:40 05/17/17 07:40 Course - Vital Signs Vital signs: Temp Pulse Resp BP Pulse Ox 98.5 F 101 H 14 119/78 100 05/17/17 07:40 05/17/17 07:40 05/17/17 07:40 05/17/17 07:40 05/17/17 07:40 - Laboratory Result Diagrams: 05/17/17 08:50 05/17/17 08:50
[2017-05-17 09:21] LABS: ABSOLUTE EOSINOPHILS # (AUTO) 0.1 10^3/uL (0.0-0.6); ABSOLUTE LYMPHOCYTES (AUTO) 2.3 10^3/uL (0.5-4.7); ABSOLUTE MONOCYTES (AUTO) 0.5 10^3/uL (0.1-1.4); ABSOLUTE NEUT (AUTO) 3.6 10^3/uL (1.7-8.2); BASOPHILS % (AUTO) 0.4 % (0-2); HEMATOCRIT 37.8 % (36.0-47.0); HEMOGLOBIN 12.8 g/dL (12.0-15.5); LYMPHOCYTES % (AUTO) 35.3 % (13-45); MEAN CORPUSCULAR HEMOGLOBIN 31.4 pg (27.0-33.4); MEAN CORPUSCULAR HGB CONC 33.9 g/dL (32.0-36.0); MEAN CORPUSCULAR VOLUME 93 fl (80-97); PLATELET COUNT 242 10^3/uL (150-450); RED BLOOD COUNT 4.07 10^6/uL (3.72-5.28); RED CELL DISTRIBUTION WIDTH 12.5 % (11.5-14.0); SEGMENTED NEUTROPHILS % (AUTO) 55.3 % (42-78); TOTAL CELLS COUNTED % (AUTO) 100 %; WHITE BLOOD COUNT 6.5 10^3/uL (4.0-10.5)
[2017-05-17 09:22] LABS: APPEARANCE,URINE SLIGHTLY-CLOUDY; BILIRUBIN,URINE NEGATIVE (NEGATIVE); COLOR,URINE YELLOW; GLUCOSE, URINE NEGATIVE (NEGATIVE); KETONES,URINE NEGATIVE (NEGATIVE); LEUKOCYTE ESTERASE,URINE TRACE (NEGATIVE); NITRITE,URINE NEGATIVE (NEGATIVE); PROTEIN,URINE NEGATIVE (NEGATIVE); UROBILINOGEN,URINE NEGATIVE mg/dL (<2.0)
[2017-05-17 09:42] LABS: ALANINE AMINOTRANSFERASE 28 U/L (9-52); ALBUMIN 4.7 g/dL (3.5-5.0); ALKALINE PHOSPHATASE 70 U/L (38-126); ANION GAP 12 (5-19); ASPARTATE AMINO TRANSFERASE 26 U/L (14-36); BILIRUBIN,DIRECT 0.2 mg/dL (0.0-0.4); BILIRUBIN,TOTAL 0.6 mg/dL (0.2-1.3); BLOOD UREA NITROGEN 15 mg/dL (7-20); C-REACTIVE PROTEIN 17.5 mg/L (<10.0); CARBON DIOXIDE 26 mmol/L (22-30); CHLORIDE 107 mmol/L (98-107); GLUCOSE 74 mg/dL (75-110); POTASSIUM 4.4 mmol/L (3.6-5.0); TOTAL PROTEIN 7.9 g/dL (6.3-8.2)
--- NOTE | 2017-05-17 11:03 | RADIOLOGY REPORT (SQ) ---
EXAM DESCRIPTION: CT ABD/PELVIS WITH IV ONLY COMPLETED DATE/TIME: 05/17/2017 10:43 am REASON FOR STUDY: pelvic and lower abd,RLQ and LLQ COMPARISON: 10/15/2016. TECHNIQUE: CT scan of the abdomen and pelvis performed using helical scanning technique with dynamic intravenous contrast injection. No oral contrast. Images reviewed with lung, soft tissue, and bone windows. Reconstructed coronal and sagittal MPR images reviewed. Delayed images for evaluation of the urinary system also acquired. All images stored on PACS. All CT scanners at this facility use dose modulation, iterative reconstruction, and/or weight based d osing when appropriate to reduce radiation dose to as low as reasonably achievable (ALARA). [facility]: Dose Right [facility]: CareDose [facility]: Dose Right [facility]: Teradose 4D [facility]: [place] CONTRAST TYPE AND DOSE: contrast/concentration: Isovue 370.00 mg/ml; Total Contrast Delivered: 68.0 ml; Total Saline Delivered: 45.9 ml RENAL FUNCTION: BUN 15 creatinine 0.88. RADIATION DOSE: CT Rad equipment meets quality standard of care and radiation dose reduction techniq ues were employed. CTDIvol: 6.2 - 8.0 mGy. DLP: 675 mGy-cm.. LIMITATIONS: None. FINDINGS: LOWER CHEST: No significant findings. No nodules or infiltrates. LIVER: Normal size. No masses. No dilated ducts. SPLEEN: Normal size. No focal lesions. PANCREAS: No masses. No significant calcifications. No adjacent inflammation or peripancreatic fluid collections. Pancreatic duct not dilated. GALLBLADDER: Surgically absent. ADRENAL GLANDS: No significant masses or asymmetry. RIGHT KIDNEY AND URETER: No solid masses. No significant calcifications. No hydronephrosis or hyd roureter. LEFT KIDNEY AND URETER: No solid masses. No significant calcifications. No hydronephrosis or hydr oureter. AORTA AND VESSELS: No aneurysm. No dissection. Renal arteries, SMA, celiac without stenosis. RETROPERITONEUM: No retroperitoneal adenopathy, hemorrhage or masses. BOWEL AND PERITONEAL CAVITY: No masses or inflammatory changes. No free fluid or peritoneal masses. APPENDIX: Not visualized. PELVIS: No mass. No free fluid. Normal bladder. ABDOMINAL WALL: No masses. No hernias. BONES: No significant or acute findings. OTHER: No other significant finding. IMPRESSION: NO SIGNIFICANT OR ACUTE FINDING IN THE ABDOMEN OR PELVIS ON CT SCAN WITH IV CONTRAST. TECHNICAL DOCUMENTATION: JOB ID: [id number] Quality ID # [id number]: Final reports with documentation of one or more dose reduction techniques (e.g., Au tomated exposure control, adjustment of the mA and/or kV according to patient size, use of iterative reconstruction technique) 2010 [employer]- All Rights Reserved
--- NOTE | 2017-05-17 11:42 | RADIOLOGY REPORT (SQ) ---
EXAM DESCRIPTION: U/S NON-OB PELVIS TV W/O DOP COMPLETED DATE/TIME: 05/17/2017 11:07 am REASON FOR STUDY: pelvic and lower bad pain COMPARISON: CT abdomen pelvis 05/17/2017, 10/15/2016, 07/15/2015 TECHNIQUE: Dynamic and static grayscale images acquired of the pelvis via transvaginal approach and recorded on PACS. Additional selected color Doppler and spectral images recorded. LIMITATIONS: None. FINDINGS: UTERUS: Contour normal. No mass. Uterus is 8.6 x 5.9 x 4.5 cm in size. ENDOMETRIAL STRIPE: No focal or generalized thickening. No masses. 7 to 8 mm in thickness. CERVIX: No nabothian cysts. RIGHT OVARY: No abnormal masses. Right ovary 2.8 x 2.7 x 2 cm in size RIGHT OVARY DOPPLER: Normal arterial vascular flow without evidence for torsion. LEFT OVARY: No abnormal masses. Left ovary 2.7 x 2.2 x 1.9 cm size LEFT OVARY DOPPLER: Normal arterial vascular flow without evidence for torsion. FREE FLUID: None noted. OTHER: No other significant finding. IMPRESSION: NORMAL TRANSVAGINAL PELVIC ULTRASOUND. TECHNICAL DOCUMENTATION: JOB ID: [id number] [employer]- All Rights Reserved
--- NOTE | 2017-05-17 12:32 | ER Document Report ---
ED GI/ - General Chief Complaint: Lower Abdominal Pain Stated Complaint: STOMACH PAIN Time Seen by Provider: 05/17/17 08:07 Notes: The patient is a 31-year-old female who presents with 1 month of lower abdominal cramping and vaginal bleeding. She uses a NuvaRing for control and has a history of ovarian cysts. She is concerned that she ruptured a cyst. She is not concerned for STDs. She denies dysuria, vaginal discharge, fevers , nausea, vomiting or back pain. TRAVEL OUTSIDE OF THE [place] IN LAST 30 DAYS: No - Related Data Allergies/Adverse Reactions: hydromorphone HCl [From Dilaudid] Allergy (Verified 05/17/17 07:36) ketorolac tromethamine [From Toradol] Allergy (Verified 05/17/17 07:36) promethazine HCl [From Phenergan] Allergy (Verified 05/17/17 07:36) Past Medical History - General Information source: Patient - Social History Smoking Status: Former Smoker Frequency of alcohol use: Occasional Drug Abuse: None Family History: Arthritis, CAD, DM, Hypertension, Malignancy, Thyroid Disfunction, Other - Uncle of an aneurysm Patient has suicidal ideation: No Patient has homicidal ideation: No Pulmonary Medical History: Reports: Hx Asthma, Hx Bronchitis Neurological Medical History: Reports: Hx Migraine Endocrine Medical History: Reports: Hx Hypothyroidism Renal/ Medical History: Reports: Hx Ovarian Cysts. Denies: Hx Peritoneal Dialysis GI Medical History: Reports: Hx Irritable Bowel Musculoskeltal Medical History: Reports Hx Muscle Spasm, Reports Hx Musculoskeletal Deformity - Left leg 1 inch shorter than right Past Surgical History: Reports: Hx Abdominal Surgery, Hx Adenoidectomy, Hx Cholecystectomy, Hx Gynecologic Surgery - ovarian cyst, Hx Orthopedic Surgery, Hx Tonsillectomy - Immunizations Hx Diphtheria, Pertussis, Tetanus Vaccination: Yes Review of Systems - Review of Systems Notes: REVIEW OF SYSTEMS: CONSTITUTIONAL: -fevers, -chills EENT: -eye pain, -difficulty swallowing, -nasal congestion CARDIOVASCULAR: -chest pain, -syncope. RESPIRATORY: -cough, -SOB GASTROINTESTINAL: -abdominal pain, -nausea, -vomiting, -diarrhea GENITOURINARY: +pelvic pain, -dysuria, -hematuria MUSCULOSKELETAL: -back pain, -neck pain SKIN: -rash or skin lesions. HEMATOLOGIC: -easy bruising or bleeding. LYMPHATIC: -swollen, enlarged glands. NEUROLOGICAL: -altered mental status or loss of consciousness, -headache, - neurologic symptoms PSYCHIATRIC: -anxiety, -depression. ALL OTHER SYSTEMS REVIEWED AND NEGATIVE. Physical Exam - Vital signs Vitals: Temp Pulse Resp BP Pulse Ox 98.5 F 101 H 14 119/78 100 05/17/17 07:40 05/17/17 07:40 05/17/17 07:40 05/17/17 07:40 05/17/17 07:40 - Notes Notes: PHYSICAL EXAMINATION: GENERAL: Well-appearing, well-nourished and in no acute distress. HEAD: Atraumatic, normocephalic. EYES: Pupils equal round and reactive to light, extraocular movements intact, sclera anicteric, conjunctiva are normal. ENT: nares patent, oropharynx clear without exudates. Moist mucous membranes. NECK: Normal range of motion, supple without lymphadenopathy LUNGS: Breath sounds clear to auscultation bilaterally and equal. No wheezes rales or rhonchi. HEART: Regular rate and rhythm without murmurs ABDOMEN: Soft, nontender, normoactive bowel sounds. No guarding, no rebound. No masses appreciated. PELVIC: Non-tender adnexa and uterus regions. Small amount of whitish discharge. EXTREMITIES: Normal range of motion, no pitting or edema. No cyanosis. NEUROLOGICAL: Cranial nerves grossly intact. Normal speech, normal gait. Normal sensory and motor exams. PSYCH: Normal mood, normal affect. SKIN: Warm, Dry, normal turgor, no rashes or lesions noted. Course - Re-evaluation Re-evalutation: Patient appears well. Her CT abdomen pelvis does not show signs of appendicitis or abscess formation. Her transvaginal ultrasound also does not show any acute abnormalities. Exam is not typical for PID or TOA and she has no signs of intermittent ovarian torsion. Blood work and urine are unremarkable, other than slight hypoglycemia, and patient ate in the ER. Based on her history , suspect a ruptured ovarian cyst causing her pain. She is not . Instructed her to follow-up with her primary care physician for further evaluation and treatment. She will continue anti-inflammatories to help with any pain. - Vital Signs Vital signs: Temp Pulse Resp BP Pulse Ox 98.5 F 91 16 125/88 H 100 05/17/17 07:40 05/17/17 13:05 05/17/17 13:05 05/17/17 13:05 05/17/17 13:05 - Laboratory Result Diagrams: 05/17/17 08:50 05/17/17 08:50 Laboratory results interpreted by me: 05/17/17 05/17/17 08:50 08:50 Glucose 74 L C-Reactive Protein 17.5 H Ur Leukocyte Esterase TRACE H Urine Ascorbic Acid 40 H - Diagnostic Test Radiology reviewed: Image reviewed, Reports reviewed Radiology results interpreted by me: CT A/P: NAD Pelvic US: NAD Discharge - Discharge Clinical Impression: Pelvic pain Condition: Stable Disposition: HOME, SELF-CARE Additional Instructions: Ovarian Cyst Your examination shows you may have ruptured an ovarian cyst. This is a ball of fluid attached to the ovary. Ovarian cysts in women of child-bearing age are usually innocent. However, the cyst may cause pain when it grows or bursts. An innocent ovarian cyst will usually go away by itself. When the cyst becomes painful, you should rest. Pain medication may be required. Some women find a hot water bottle soothing. The pain usually resolves within one or two days. After menopause, an ovarian cyst may mean a tumor, and requires more aggressive evaluation -- usually surgery is recommended to remove or biopsy the cyst. A very large cyst requires evaluation at any age. Most cysts (even the innocent ones) require follow-up examination. Call the doctor or return at any time if the pain increases significantly, if you become faint, or if you experience vaginal bleeding. Referrals: RENALDO FELIX MD [ACTIVE STAFF] - Follow up as needed
[2017-05-17 13:03] LABS: BACTERIA (WET MOUNT) 4+ BACTERIA SEEN; EPITHELIALS (WET MOUNT) 4+ EPITHELIALS SEEN; T.VAGINALIS (WET MOUNT) NO TRICHOMONAS SEEN; WBCS (WET MOUNT) 1+ WBCS SEEN; YEAST (WET MOUNT) NO YEAST SEEN
[2017-05-17 13:06] VITALS: BP 125/88
[2017-05-17 14:26] LABS: CHLAM PCR NOT DETECTED (NOT DETECT); GON PCR NOT DETECTED (NOT DETECT)
== END 2017-05-17 13:09 | disposition home or self-care (01) ==
LOC: ER 07:36
DX: R10.2 Pelvic and perineal pain (principal); R10.30 Lower abdominal pain, unspecified; E03.9 Hypothyroidism, unspecified; Z87.891 Personal history of nicotine dependence; Z90.49 Acquired absence of other specified parts of digestive tract
CPT/HCPCS: 99284; 96361; 96374; 36415; 87086; 87210; 85025; 81025; 86140; 87088; 80053; 81001; 87186; 87491; 87591; 76830; 74177; J2405; J7030

== ENCOUNTER 2017-07-03 09:47 | Emergency (ER) | payer MEDICARE, MEDICAID ==
--- NOTE | 2017-07-03 10:31 | ER Document Report ---
ED General - General Chief Complaint: Dizziness Stated Complaint: DIZZY/NAUSEA Time Seen by Provider: 07/03/17 10:20 Mode of Arrival: Ambulatory Information source: Patient Notes: 31 yr old female presents with complaints of dizziness nausea vomiting. Patient unsure if she is , still has a UTI, or is having diabetes. Patient has no history of such but notes that she has been dizzy with blurry vision. Patient was diagnosed with UTI 1 month ago and is still taking Azo because she believes she is a symptoms still TRAVEL OUTSIDE OF THE [place] IN LAST 30 DAYS: No - HPI Onset: Last week Onset/Duration: Persistent Quality of pain: No pain Severity: Mild Pain Level: Denies Associated symptoms: Nausea, Vomiting, Other Exacerbated by: Denies Relieved by: Denies Similar symptoms previously: Yes Recently seen / treated by doctor: No - Related Data Allergies/Adverse Reactions: hydromorphone HCl [From Dilaudid] Allergy (Verified 07/03/17 09:48) ketorolac tromethamine [From Toradol] Allergy (Verified 07/03/17 09:48) promethazine HCl [From Phenergan] Allergy (Verified 07/03/17 09:48) Past Medical History - Social History Smoking Status: Never Smoker Cigarette use (# per day): No Chew tobacco use (# tins/day): No Smoking Education Provided: No Frequency of alcohol use: Occasional Drug Abuse: None Family History: Arthritis, CAD, DM, Hypertension, Malignancy, Thyroid Disfunction, Other - Uncle of an aneurysm Patient has suicidal ideation: No Patient has homicidal ideation: No Pulmonary Medical History: Reports: Hx Asthma, Hx Bronchitis Neurological Medical History: Reports: Hx Migraine Endocrine Medical History: Reports: Hx Hypothyroidism Renal/ Medical History: Reports: Hx Ovarian Cysts. Denies: Hx Peritoneal Dialysis GI Medical History: Reports: Hx Irritable Bowel Musculoskeltal Medical History: Reports Hx Muscle Spasm, Reports Hx Musculoskeletal Deformity - Left leg 1 inch shorter than right Past Surgical History: Reports: Hx Abdominal Surgery, Hx Adenoidectomy, Hx Cholecystectomy, Hx Gynecologic Surgery - ovarian cyst, Hx Orthopedic Surgery, Hx Tonsillectomy - Immunizations Hx Diphtheria, Pertussis, Tetanus Vaccination: Yes Review of Systems - Review of Systems Notes: REVIEW OF SYSTEMS: CONSTITUTIONAL : Denies fever, chills, or sweats. Denies recent illness. EENT: Denies eye, ear, throat, or mouth pain or symptoms. Denies nasal or sinus congestion or discharge. Denies throat, tongue, or mouth swelling or difficulty swallowing. CARDIOVASCULAR: Denies chest pain. Denies palpitations or racing or irregular heart beat. Denies ankle edema. RESPIRATORY: Denies cough, cold, or chest congestion. Denies shortness of breath, difficulty breathing, or wheezing. GASTROINTESTINAL: admits ot nausea vomiting GENITOURINARY: Denies difficulty urinating, painful urination, burning, frequency, blood in urine, or discharge. FEMALE GENITOURINARY: Denies vaginal bleeding, heavy or abnormal periods, irregular periods. Denies vaginal discharge or odor. MUSCULOSKELETAL: Denies back or neck pain or stiffness. Denies joint pain or swelling. SKIN: Denies rash, lesions or sores. HEMATOLOGIC : Denies easy bruising or bleeding. LYMPHATIC: Denies swollen, enlarged glands. NEUROLOGICAL: admits to dizziness PSYCHIATRIC: Denies anxiety or stress. Denies depression, suicidal ideation, or homicidal ideation. ALL OTHER SYSTEMS REVIEWED AND NEGATIVE. PHYSICAL EXAMINATION: GENERAL: Well-appearing, well-nourished and in no acute distress. HEAD: Atraumatic, normocephalic. EYES: Pupils equal round and reactive to light, extraocular movements intact, conjunctiva are normal. ENT: Nares patent, oropharynx clear without exudates. Moist mucous membranes. NECK: Normal range of motion, supple without lymphadenopathy LUNGS: Breath sounds clear to auscultation bilaterally and equal. No wheezes rales or rhonchi. HEART: Regular rate and rhythm without murmurs ABDOMEN: Soft, nontender, nondistended abdomen. No guarding, no rebound. No masses appreciated. Female : deferred Musculoskeletal: Normal range of motion, no pitting or edema. No cyanosis. NEUROLOGICAL: Cranial nerves grossly intact. Baseline speech, normal gait. Normal sensory, motor exams PSYCH: Normal mood, normal affect. SKIN: Warm, Dry, normal turgor, no rashes or lesions noted. Dictation was performed using [employer] recognition software Course - Re-evaluation Re-evalutation: 07/03/17 10:31 Patient's presentation is quite benign, lab work is pending however have low suspicion for any life-threatening issues 07/03/17 12:34 Patient's TSH is noted to be low, I have explained to her she may have hyperthyroidism, copy of this will be provided to her to give to her primary care physician, her urinalysis is consistent with a UTI, she will be started on antibiotics 07/03/17 12:36 After performing a Medical Screening Examination, I estimate there is LOW risk for ACUTE APPENDICITIS, BOWEL OBSTRUCTION, ACUTE CHOLECYSTITIS, PERFORATED DIVERTICULITIS, INCARCERATED HERNIA, PANCREATITIS, PELVIC INFLAMMATORY DISEASE, PERFORATED ULCER, ECTOPIC , or TUBO-OVARIAN ABSCESS, thus I consider the discharge disposition reasonable. Also, there is no evidence or peritonitis , sepsis, or toxicity. I have reevaluated this patient multiple times and no significant life threatening changes are noted. The patient and I have discussed the diagnosis and risks, and we agree with discharging home with close follow-up with the understanding that symptoms and presentations can change. We also discussed returning to the Emergency Department immediately if new or worsening symptoms occur. We have discussed the symptoms which are most concerning (e.g., bloody stool, fever, changing or worsening pain, vomiting) that necessitate immediate return. - Laboratory Result Diagrams: 07/03/17 10:45 07/03/17 10:45 Laboratory results interpreted by me: 07/03/17 07/03/17 07/03/17 10:27 10:45 10:45 Glucose 74 L TSH 0.18 L Urine Nitrite POSITIVE H Urine Urobilinogen 4.0 H Discharge - Discharge Clinical Impression: Hyperthyroidism UTI (urinary tract infection) Qualifiers: Urinary tract infection type: acute cystitis Hematuria presence: without hematuria Qualified Code(s): N30.00 - Acute cystitis without hematuria Condition: Stable Disposition: HOME, SELF-CARE Instructions: Hyperthyroidism ([facility]) Prescriptions: Cephalexin Monohydrate [Keflex 500 mg Capsule] 500 mg PO BID 7 Days capsule Referrals: AYE BOYD DO [NO LOCAL MD] - Follow up tomorrow
[2017-07-03 11:04] LABS: ABSOLUTE EOSINOPHILS # (AUTO) 0.1 10^3/uL (0.0-0.6); ABSOLUTE LYMPHOCYTES (AUTO) 2.5 10^3/uL (0.5-4.7); ABSOLUTE MONOCYTES (AUTO) 0.4 10^3/uL (0.1-1.4); ABSOLUTE NEUT (AUTO) 3.3 10^3/uL (1.7-8.2); BASOPHILS % (AUTO) 0.2 % (0-2); EOSINOPHILS % (AUTO) 1.3 % (0-6); HEMOGLOBIN 13.2 g/dL (12.0-15.5); LYMPHOCYTES % (AUTO) 39.1 % (13-45); MEAN CORPUSCULAR HEMOGLOBIN 31.7 pg (27.0-33.4); MEAN CORPUSCULAR HGB CONC 33.9 g/dL (32.0-36.0); MEAN CORPUSCULAR VOLUME 93 fl (80-97); MONOCYTES % (AUTO) 6.8 % (3-13); PLATELET COUNT 235 10^3/uL (150-450); RED BLOOD COUNT 4.18 10^6/uL (3.72-5.28); RED CELL DISTRIBUTION WIDTH 12.4 % (11.5-14.0); SEGMENTED NEUTROPHILS % (AUTO) 52.6 % (42-78); TOTAL CELLS COUNTED % (AUTO) 100 %; WHITE BLOOD COUNT 6.3 10^3/uL (4.0-10.5)
[2017-07-03 11:22] LABS: ALANINE AMINOTRANSFERASE 34 U/L (9-52); ALBUMIN 4.5 g/dL (3.5-5.0); ALKALINE PHOSPHATASE 75 U/L (38-126); ANION GAP 9 (5-19); ASPARTATE AMINO TRANSFERASE 28 U/L (14-36); BILIRUBIN,DIRECT 0.2 mg/dL (0.0-0.4); BILIRUBIN,TOTAL 0.4 mg/dL (0.2-1.3); BLOOD UREA NITROGEN 13 mg/dL (7-20); CALCIUM 8.9 mg/dL (8.4-10.2); CARBON DIOXIDE 26 mmol/L (22-30); CHLORIDE 107 mmol/L (98-107); GLUCOSE 74 mg/dL (75-110); POTASSIUM 3.8 mmol/L (3.6-5.0); SODIUM 142.3 mmol/L (137-145); TOTAL PROTEIN 8.1 g/dL (6.3-8.2)
[2017-07-03 12:02] LABS: APPEARANCE,URINE CLEAR; BILIRUBIN,URINE NEGATIVE (NEGATIVE); COLOR,URINE AMBER; GLUCOSE, URINE NEGATIVE (NEGATIVE); KETONES,URINE NEGATIVE (NEGATIVE); LEUKOCYTE ESTERASE,URINE NEGATIVE (NEGATIVE); NITRITE,URINE POSITIVE (NEGATIVE); PROTEIN,URINE NEGATIVE (NEGATIVE); URINE SPECIFIC GRAVITY 1.019
== END 2017-07-03 12:42 | disposition home or self-care (01) ==
LOC: ER 09:47
DX: N30.00 Acute cystitis without hematuria (principal); E05.90 Thyrotoxicosis, unspecified without thyrotoxic crisis or storm; R42 Dizziness and giddiness; R11.2 Nausea with vomiting, unspecified; H53.8 Other visual disturbances; J45.909 Unspecified asthma, uncomplicated; Z87.440 Personal history of urinary (tract) infections; Z88.5 Allergy status to narcotic agent; Z88.8 Allergy status to other drugs, medicaments and biological substances; Z83.49 Family history of other endocrine, nutritional and metabolic diseases
CPT/HCPCS: 36415; 80053; 81001; 81025; 84443; 85025; 87086; 99284

== ENCOUNTER 2017-07-22 09:48 | Emergency (ER) | payer MEDICARE, MEDICAID ==
--- NOTE | 2017-07-22 10:09 | ER Document Report ---
ED Medical Screen (RME) - General Chief Complaint: Abdominal Pain Stated Complaint: STOMACH PAIN Time Seen by Provider: 07/22/17 09:57 Notes: Patient presents with 2 days of smelling vaginal discharge. Denies any recent fevers or illnesses. Patient is sexually active. She also states that she is late with her period but is normally very regular with her cycle. No history of STDs. Of note, she was recently seen here several weeks ago was diagnosed with hypothyroidism but she has an appointment this Sunday for outpatient follow-up. I have greeted and performed a rapid initial assessment of this patient. A comprehensive ED assessment and evaluation of the patient, analysis of test results and completion of the medical decision making process will be conducted by additional ED providers. PHYSICAL EXAMINATION: GENERAL: Well-appearing, well-nourished and in no acute distress. HEAD: Atraumatic, normocephalic. EYES: Pupils equal round extraocular movements intact, conjunctiva are normal. ENT: Nares patent NECK: Normal range of motion LUNGS: No respiratory distress Musculoskeletal: Normal range of motion NEUROLOGICAL: Normal speech, normal gait. PSYCH: Normal mood, normal affect. SKIN: Warm, Dry, normal turgor, no rashes or lesions noted. TRAVEL OUTSIDE OF THE [place] IN LAST 30 DAYS: No - Related Data Allergies/Adverse Reactions: hydromorphone HCl [From Dilaudid] Allergy (Verified 07/22/17 09:49) ketorolac tromethamine [From Toradol] Allergy (Verified 07/22/17 09:49) promethazine HCl [From Phenergan] Allergy (Verified 07/22/17 09:49) Past Medical History - Social History Chew tobacco use (# tins/day): No Frequency of alcohol use: Occasional Drug Abuse: None Pulmonary Medical History: Reports: Hx Asthma, Hx Bronchitis Neurological Medical History: Reports: Hx Migraine Endocrine Medical History: Reports: Hx Hypothyroidism Renal/ Medical History: Reports: Hx Ovarian Cysts. Denies: Hx Peritoneal Dialysis GI Medical History: Reports: Hx Irritable Bowel Musculoskeltal Medical History: Reports Hx Muscle Spasm, Reports Hx Musculoskeletal Deformity - Left leg 1 inch shorter than right Past Surgical History: Reports: Hx Abdominal Surgery, Hx Adenoidectomy, Hx Cholecystectomy, Hx Gynecologic Surgery - ovarian cyst, Hx Orthopedic Surgery, Hx Tonsillectomy - Immunizations Hx Diphtheria, Pertussis, Tetanus Vaccination: Yes Physical Exam - Vital signs Vitals: Temp Pulse Resp BP Pulse Ox 98.6 F 108 H 18 124/83 98 07/22/17 09:55 07/22/17 09:55 07/22/17 09:55 07/22/17 09:55 07/22/17 09:55 Course - Vital Signs Vital signs: Temp Pulse Resp BP Pulse Ox 98.6 F 108 H 18 124/83 98 07/22/17 09:55 07/22/17 09:55 07/22/17 09:55 07/22/17 09:55 07/22/17 09:55
--- NOTE | 2017-07-22 10:44 | ER Document Report ---
ED GI/ - General Chief Complaint: Abdominal Pain Stated Complaint: STOMACH PAIN Time Seen by Provider: 07/22/17 09:57 Mode of Arrival: Ambulatory Information source: Patient TRAVEL OUTSIDE OF THE [place] IN LAST 30 DAYS: No - HPI Patient complains to provider of: Abdominal pain, Missed/Late menses Onset: Other - 2 DAYS AGO Timing/Duration: Sudden Quality of pain: Sharp Severity at maximum: Severe Severity in ED: Moderate Context: denies: - UNSURE Location: Suprapubic Vaginal bleeding (Compared to normal period): None - BEGAN AFTER ARRIVAL TO E.D. Sexual history: Active Associated symptoms: None. denies: Diarrhea, Dysuria, Nausea, Vomiting Exacerbated by: Denies Relieved by: Denies Similar symptoms previously: No Recently seen / treated by doctor: Yes - [facility] [place], [place] - Related Data Allergies/Adverse Reactions: hydromorphone HCl [From Dilaudid] Allergy (Verified 07/22/17 09:49) ketorolac tromethamine [From Toradol] Allergy (Verified 07/22/17 09:49) promethazine HCl [From Phenergan] Allergy (Verified 07/22/17 09:49) Past Medical History - General Information source: Patient - Social History Smoking Status: Unknown if Ever Smoked Chew tobacco use (# tins/day): No Frequency of alcohol use: Occasional Drug Abuse: None Family History: Arthritis, CAD, DM, Hypertension, Malignancy, Thyroid Disfunction, Other - Uncle of an aneurysm Patient has suicidal ideation: No Patient has homicidal ideation: No Pulmonary Medical History: Reports: Hx Asthma, Hx Bronchitis Neurological Medical History: Reports: Hx Migraine Endocrine Medical History: Reports: Hx Hypothyroidism Renal/ Medical History: Reports: Hx Ovarian Cysts. Denies: Hx Peritoneal Dialysis GI Medical History: Reports: Hx Irritable Bowel Musculoskeltal Medical History: Reports Hx Muscle Spasm, Reports Hx Musculoskeletal Deformity - Left leg 1 inch shorter than right Past Surgical History: Reports: Hx Abdominal Surgery, Hx Adenoidectomy, Hx Cholecystectomy, Hx Gynecologic Surgery - ovarian cyst, Hx Orthopedic Surgery, Hx Tonsillectomy - Immunizations Hx Diphtheria, Pertussis, Tetanus Vaccination: Yes Review of Systems - Review of Systems Constitutional: No symptoms reported EENT: No symptoms reported Cardiovascular: No symptoms reported Respiratory: No symptoms reported Gastrointestinal: See HPI, Abdominal pain Genitourinary: See HPI Female Genitourinary: See HPI Musculoskeletal: No symptoms reported Skin: No symptoms reported Neurological/Psychological: No symptoms reported Physical Exam - Vital signs Vitals: Temp Pulse Resp BP Pulse Ox 98.6 F 108 H 18 124/83 98 07/22/17 09:55 07/22/17 09:55 07/22/17 09:55 07/22/17 09:55 07/22/17 09:55 Interpretation: Tachycardic. No: Hypotensive, Tachypneic, Febrile - General General appearance: Appears well, Alert In distress: None - HEENT Head: Normocephalic Eyes: Normal Conjunctiva: Normal Ears: Normal Nasal: Normal Mouth/Lips: Normal Mucous membranes: Normal Neck: Normal, Supple - Respiratory Respiratory status: No respiratory distress - Cardiovascular Rhythm: Regular - Abdominal Inspection: Normal Distension: No distension - Genitourinary External exam: Normal Speculum exam: Normal Vaginal bleeding: Moderate - DARK RED, NO CLOTS Bimanuel exam: Cervical motion tender - MILDLY - Extremities General upper extremity: Normal inspection General lower extremity: Normal inspection - Neurological Neuro grossly intact: Yes Cognition: Normal Orientation: AAOx4 - Psychological Associated symptoms: Normal affect, Normal mood - Skin Skin Temperature: Warm Skin Moisture: Dry Skin Color: Normal Skin Turgor: Elastic Course - Vital Signs Vital signs: Temp Pulse Resp BP Pulse Ox 98.6 F 108 H 18 124/83 98 07/22/17 09:55 07/22/17 09:55 07/22/17 09:55 07/22/17 09:55 07/22/17 09:55 - Laboratory Laboratory results interpreted by me: 07/22/17 07/22/17 10:20 14:00 TSH 0.21 L Urine Blood LARGE H Urine Ascorbic Acid 40 H Discharge - Discharge Clinical Impression: Thyroid function test abnormal, Metrorrhagia, Dysmenorrhea Condition: Stable Disposition: HOME, SELF-CARE Instructions: Dysmenorrhea ([facility]), Ibuprofen (General) ([facility]) Additional Instructions: REST, DRINK PLENTY OF FLUIDS. YOU MAY TAKE TYLENOL IF NEEDED FOR PAIN CONTROL. FOLLOW UP APPOINTED NEXT WEEK.
[2017-07-22 10:55] LABS: APPEARANCE,URINE SLIGHTLY-CLOUDY; BILIRUBIN,URINE NEGATIVE (NEGATIVE); COLOR,URINE YELLOW; GLUCOSE, URINE NEGATIVE (NEGATIVE); KETONES,URINE NEGATIVE (NEGATIVE); LEUKOCYTE ESTERASE,URINE NEGATIVE (NEGATIVE); NITRITE,URINE NEGATIVE (NEGATIVE); PROTEIN,URINE NEGATIVE (NEGATIVE); URINE SPECIFIC GRAVITY 1.013; UROBILINOGEN,URINE NEGATIVE mg/dL (<2.0)
[2017-07-22 12:19] LABS: BACTERIA (WET MOUNT) 4+ BACTERIA SEEN; EPITHELIALS (WET MOUNT) 3+ EPITHELIALS SEEN; RBCS (WET MOUNT) 4+ RBCS SEEN; T.VAGINALIS (WET MOUNT) NO TRICHOMONAS SEEN; WBCS (WET MOUNT) 1+ WBCS SEEN; YEAST (WET MOUNT) NO YEAST SEEN
[2017-07-22 13:50] LABS: CHLAM PCR NOT DETECTED (NOT DETECT); GON PCR NOT DETECTED (NOT DETECT)
[2017-07-22 14:53] LABS: FREE T3 3.67 pg/mL (2.77-5.27)
[2017-07-22 15:06] LABS: THYROID STIMULATING HORMONE 0.21 uIU/mL (0.47-4.68)
[2017-07-22 16:08] VITALS: BP 120/85
== END 2017-07-22 16:00 | disposition home or self-care (01) ==
LOC: ER 09:48
DX: N92.1 Excessive and frequent menstruation with irregular cycle (principal); N94.6 Dysmenorrhea, unspecified; R94.6 Abnormal results of thyroid function studies; R00.0 Tachycardia, unspecified; J45.909 Unspecified asthma, uncomplicated; Z87.42 Personal history of other diseases of the female genital tract; Z88.5 Allergy status to narcotic agent; Z88.8 Allergy status to other drugs, medicaments and biological substances
CPT/HCPCS: 36415; 81001; 81025; 84439; 84443; 84481; 84703; 87210; 87491; 87591; 99284

== ENCOUNTER 2017-09-17 08:10 | Emergency (ER) | payer MEDICARE, MEDICAID ==
[2017-09-17] MEDS ORDERED: ACETAMINOPHEN 325 MG TABLET PO ONE (08:24)
--- NOTE | 2017-09-17 09:06 | RADIOLOGY REPORT (SQ) ---
EXAM DESCRIPTION: KNEE LEFT 4 VIEW COMPLETED DATE/TIME: 09/17/2017 8:55 am REASON FOR STUDY: "twist" injury COMPARISON: None. NUMBER OF VIEWS: Four views. TECHNIQUE: AP, lateral, and both oblique radiographic images acquired of the left knee. LIMITATIONS: None. FINDINGS: MINERALIZATION: Normal. BONES: No acute fracture or dislocation. No worrisome bone lesions. JOINT: No effusion. SOFT TISSUES: No soft tissue swelling. No radio-opaque foreign body. OTHER: No other significant finding. IMPRESSION: NEGATIVE STUDY OF THE LEFT KNEE. NO RADIOGRAPHIC EVIDENCE OF ACUTE INJURY. TECHNICAL DOCUMENTATION: JOB ID: [id number] [employer]- All Rights Reserved Reading location - IP/workstation name: [email or web address]
[2017-09-17] MEDS ORDERED: LIDOCAINE 5% (700 MG) TRANSDERMAL ADH..PATCH TP ONE (09:20)
--- NOTE | 2017-09-17 09:22 | ER Document Report ---
ED General - General Chief Complaint: Knee Pain Stated Complaint: FALL/KNEE PAIN Time Seen by Provider: 09/17/17 08:42 TRAVEL OUTSIDE OF THE [place] IN LAST 30 DAYS: No - HPI Patient complains to provider of: Left knee pain Notes: Patient coming in for evaluation of left knee pain. Patient has numbness in the lateral side the distal patella tendon area. Patient states she fell the night prior twisting motion felt pop in her knee. Patient was able to ambulate and drive herself here to the ER. Patient has a history of cerebral palsy however otherwise seems to be functional in her ADLs. Patient denies any fevers chills nausea vomiting LOC. Patient denies taking anything for pain except for Tylenol Motrin states that this did not help. - Related Data Allergies/Adverse Reactions: hydromorphone HCl [From Dilaudid] Allergy (Verified 09/17/17 08:16) ketorolac tromethamine [From Toradol] Allergy (Verified 09/17/17 08:16) promethazine HCl [From Phenergan] Allergy (Verified 09/17/17 08:16) Past Medical History - Social History Smoking Status: Current Every Day Smoker Family History: Arthritis, CAD, DM, Hypertension, Malignancy, Thyroid Disfunction, Other - Uncle of an aneurysm Pulmonary Medical History: Reports: Hx Asthma, Hx Bronchitis Neurological Medical History: Reports: Hx Migraine Endocrine Medical History: Reports: Hx Hypothyroidism Renal/ Medical History: Reports: Hx Ovarian Cysts. Denies: Hx Peritoneal Dialysis GI Medical History: Reports: Hx Irritable Bowel Musculoskeltal Medical History: Reports Hx Muscle Spasm, Reports Hx Musculoskeletal Deformity - Left leg 1 inch shorter than right Past Surgical History: Reports: Hx Abdominal Surgery, Hx Adenoidectomy, Hx Cholecystectomy, Hx Gynecologic Surgery - ovarian cyst, Hx Orthopedic Surgery, Hx Tonsillectomy - Immunizations Hx Diphtheria, Pertussis, Tetanus Vaccination: Yes Review of Systems - Review of Systems Constitutional: No symptoms reported EENT: No symptoms reported Cardiovascular: No symptoms reported Respiratory: No symptoms reported Gastrointestinal: No symptoms reported Genitourinary: No symptoms reported Female Genitourinary: No symptoms reported Musculoskeletal: Other - Left knee pain Skin: No symptoms reported Hematologic/Lymphatic: No symptoms reported Neurological/Psychological: No symptoms reported -: Yes All other systems reviewed and negative Physical Exam - Vital signs Vitals: Temp Pulse Resp BP Pulse Ox 98.5 F 89 16 112/79 99 09/17/17 08:19 09/17/17 08:19 09/17/17 08:19 09/17/17 08:19 09/17/17 08:19 Interpretation: Normal - General General appearance: Appears well, Alert - HEENT Head: Normocephalic, Atraumatic Eyes: Normal Pupils: PERRL - Respiratory Respiratory status: No respiratory distress Chest status: Nontender Breath sounds: Normal Chest palpation: Normal - Cardiovascular Rhythm: Regular Heart sounds: Normal auscultation Murmur: No - Abdominal Inspection: Normal Distension: No distension Bowel sounds: Normal Tenderness: Nontender Organomegaly: No organomegaly - Back Back: Normal, Nontender - Extremities General upper extremity: Normal inspection, Nontender, Normal color, Normal ROM , Normal temperature General lower extremity: Normal inspection, Tender - Patient coming in for evaluation of left knee pain. Patient as noted tenderness or laxity on valgus valgus anterior posterior drawer testing. Patient does have tenderness to palpation of the lateral collateral ligament and on the distal patella, Normal color, Normal ROM, Normal temperature, Normal weight bearing. No: Drew's sign - Neurological Neuro grossly intact: Yes Cognition: Normal Orientation: AAOx4 Maria De Jesus Coma Scale Eye Opening: Spontaneous Maria De Jesus Coma Scale Verbal: Oriented Maria De Jesus Coma Scale Motor: Obeys Commands Maria De Jesus Coma Scale Total: 15 Speech: Normal Motor strength normal: LUE, RUE, LLE, RLE Sensory: Normal - Psychological Associated symptoms: Normal affect, Normal mood - Skin Skin Temperature: Warm Skin Moisture: Dry Skin Color: Normal Course - Re-evaluation Re-evalutation: 09/17/17 15:24 More likely patient has a sprain of her knee patient was placed in the Mikal bandage. Patient is to follow-up with primary care physician - Vital Signs Vital signs: Temp Pulse Resp BP Pulse Ox 98.3 F 80 16 108/83 99 09/17/17 09:55 09/17/17 09:55 09/17/17 09:55 09/17/17 09:55 09/17/17 09:55 Discharge - Discharge Clinical Impression: Knee sprain Qualifiers: Encounter type: initial encounter Involved ligament of knee: unspecified ligament Laterality: left Qualified Code(s): S83.92XA - Sprain of unspecified site of left knee, initial encounter Condition: Good Disposition: HOME, SELF-CARE Instructions: Mikal Wrap ([facility]), Ice & Elevation ([facility]), Suspected Internal Knee Injury ([facility]), Sprained Knee ([facility]) Additional Instructions: Your examination today is consistent with a knee sprain. Your x-rays not showing signs of fracture. Please use the Mikal wrap for support he may remove this at home when you are not him bleeding. Would recommend taking Tylenol and Motrin together for pain relief also recommend warm packs and ice packs for pain relief elevate your leg follow-up with your primary care physician as needed return to ER for any worsening symptoms.
[2017-09-17 09:56] VITALS: BP 108/83
== END 2017-09-17 10:03 | disposition home or self-care (01) ==
LOC: ER 08:10
DX: S83.92XA Sprain of unspecified site of left knee, initial encounter (principal); M25.562 Pain in left knee; W19.XXXA Unspecified fall, initial encounter; G80.9 Cerebral palsy, unspecified; R20.0 Anesthesia of skin; F17.200 Nicotine dependence, unspecified, uncomplicated; J45.909 Unspecified asthma, uncomplicated; Z88.5 Allergy status to narcotic agent; Z88.8 Allergy status to other drugs, medicaments and biological substances
CPT/HCPCS: 99283; 73562; A9270

== ENCOUNTER 2017-11-03 17:00 | Emergency (ER) | payer MEDICARE, MEDICAID ==
[2017-11-03 17:55] LABS: ABSOLUTE EOSINOPHILS # (AUTO) 0.1 10^3/uL (0.0-0.6); ABSOLUTE LYMPHOCYTES (AUTO) 2.6 10^3/uL (0.5-4.7); ABSOLUTE MONOCYTES (AUTO) 0.6 10^3/uL (0.1-1.4); ABSOLUTE NEUT (AUTO) 4.3 10^3/uL (1.7-8.2); BASOPHILS % (AUTO) 0.5 % (0-2); HEMATOCRIT 38.4 % (36.0-47.0); HEMOGLOBIN 13.4 g/dL (12.0-15.5); LYMPHOCYTES % (AUTO) 34.4 % (13-45); MEAN CORPUSCULAR HEMOGLOBIN 32.1 pg (27.0-33.4); MEAN CORPUSCULAR HGB CONC 34.7 g/dL (32.0-36.0); MEAN CORPUSCULAR VOLUME 92 fl (80-97); MONOCYTES % (AUTO) 7.7 % (3-13); PLATELET COUNT 253 10^3/uL (150-450); RED BLOOD COUNT 4.16 10^6/uL (3.72-5.28); RED CELL DISTRIBUTION WIDTH 12.5 % (11.5-14.0); SEGMENTED NEUTROPHILS % (AUTO) 56.4 % (42-78); TOTAL CELLS COUNTED % (AUTO) 100 %; WHITE BLOOD COUNT 7.5 10^3/uL (4.0-10.5)
[2017-11-03 18:09] LABS: ANION GAP 13 (5-19); BLOOD UREA NITROGEN 12 mg/dL (7-20); CALCIUM 9.6 mg/dL (8.4-10.2); CARBON DIOXIDE 25 mmol/L (22-30); CHLORIDE 109 mmol/L (98-107); GLUCOSE 89 mg/dL (75-110); POTASSIUM 4.3 mmol/L (3.6-5.0); SODIUM 147.1 mmol/L (137-145)
--- NOTE | 2017-11-03 18:09 | ER Document Report ---
ED Medical Screen (RME) - General Chief Complaint: Vomiting Stated Complaint: VOMIT, DIZZY, THROAT PAIN Time Seen by Provider: 11/03/17 17:11 Notes: 32-year-old female presenting today with complaints of a fever and posterior oropharynx pain. Patient states she feels like her throat is swollen. I have greeted and performed a rapid initial assessment of this patient. A comprehensive ED assessment and evaluation of the patient, analysis of test results, and completion of the medical decision making process will be conducted by additional ED providers. Review of systems: Positive for throat pain and possible swelling. Physical Exam: General: Alert, appears well. HEENT: Normocephalic. Atraumatic. PERRLA. Extraocular movements intact. Oropharynx clear. Posterior oropharynx erythema. Shotty lymph node in the right anterior cervical chain. TMs are clear bilaterally. Neck: Supple. Respiratory: No respiratory distress. Abdominal: Normal Inspection. No distension. Extremities: Moves all four extremities. Neurological: Normal cognition. AAOx4. Normal speech. Psychological: Normal affect. Normal Mood. Skin: Warm. Dry. Normal color. TRAVEL OUTSIDE OF THE [place] IN LAST 30 DAYS: No - Related Data Allergies/Adverse Reactions: hydromorphone HCl [From Dilaudid] Allergy (Verified 11/03/17 17:17) ketorolac tromethamine [From Toradol] Allergy (Verified 11/03/17 17:17) promethazine HCl [From Phenergan] Allergy (Verified 11/03/17 17:17) Past Medical History - Social History Chew tobacco use (# tins/day): No Frequency of alcohol use: None Drug Abuse: None Pulmonary Medical History: Reports: Hx Asthma, Hx Bronchitis Neurological Medical History: Reports: Hx Migraine Endocrine Medical History: Reports: Hx Hypothyroidism Renal/ Medical History: Reports: Hx Ovarian Cysts. Denies: Hx Peritoneal Dialysis GI Medical History: Reports: Hx Irritable Bowel Musculoskeltal Medical History: Reports Hx Muscle Spasm, Reports Hx Musculoskeletal Deformity - Left leg 1 inch shorter than right Past Surgical History: Reports: Hx Abdominal Surgery, Hx Adenoidectomy, Hx Cholecystectomy, Hx Gynecologic Surgery - ovarian cyst, Hx Orthopedic Surgery, Hx Tonsillectomy - Immunizations Hx Diphtheria, Pertussis, Tetanus Vaccination: Yes Physical Exam - Vital signs Vitals: Temp Pulse Resp BP Pulse Ox 99.5 F 91 18 121/93 H 98 06/30/18 17:05 11/03/17 17:05 11/03/17 17:05 11/03/17 17:05 11/03/17 17:05 Course - Vital Signs Vital signs: Temp Pulse Resp BP Pulse Ox 99.5 F 91 18 121/93 H 98 11/03/17 17:05 11/03/17 17:05 11/03/17 17:05 11/03/17 17:05 11/03/17 17:05 - Laboratory Result Diagrams: 11/03/17 17:30 11/03/17 17:30 Doctor's Discharge - Discharge Referrals: AYE BOYD DO [Primary Care Provider] - Follow up as needed Scribe Documentation - Scribe Written by Purvi:: Purvi Pickard, 11/03/2017 1809 acting as scribe for :: Dc
[2017-11-03] MEDS ORDERED: NORMAL SALINE 1000 ML 1,000 ML IV ONE (18:51)
[2017-11-03] MEDS ORDERED: DEXAMETHASONE SOD PHOS INJ 10 MG/1 ML VIAL IV ONE (18:51)
[2017-11-03] MEDS ORDERED: METOCLOPRAMIDE HCL INJ/PF 10 MG/2 ML SDV IV ONE (18:51)
--- NOTE | 2017-11-03 18:54 | ER Document Report ---
ED General - General Chief Complaint: Vomiting Stated Complaint: VOMIT, DIZZY, THROAT PAIN Time Seen by Provider: 11/03/17 17:11 Notes: Patient is a 32 year old female with a past medical history of cerebral palsy who presents with 4-5 days of throat pain. She describes it as a constant soreness that is worsened by swallowing or breathing. She also notes some swelling to the lymph nodes in her neck. She denies a history of similar symptoms in the past. Nothing improves or worsens her symptoms. She denies any associated fever states she has felt overall rundown. She has seen her doctor regarding today's concerns. She denies any inability to tolerate oral intake but does note that it worsens her pain. She also notes that she has had several episodes of vomiting but no diarrhea or abdominal pain. TRAVEL OUTSIDE OF THE [place] IN LAST 30 DAYS: No - Related Data Allergies/Adverse Reactions: hydromorphone HCl [From Dilaudid] Allergy (Verified 11/03/17 17:17) ketorolac tromethamine [From Toradol] Allergy (Verified 11/03/17 17:17) promethazine HCl [From Phenergan] Allergy (Verified 11/03/17 17:17) Past Medical History - General Information source: Patient - Social History Smoking Status: Never Smoker Chew tobacco use (# tins/day): No Frequency of alcohol use: None Drug Abuse: None Lives with: Family Family History: Arthritis, CAD, DM, Hypertension, Malignancy, Thyroid Disfunction, Other - Uncle of an aneurysm Patient has suicidal ideation: No Patient has homicidal ideation: No Pulmonary Medical History: Reports: Hx Asthma, Hx Bronchitis Neurological Medical History: Reports: Hx Migraine Endocrine Medical History: Reports: Hx Hypothyroidism Renal/ Medical History: Reports: Hx Ovarian Cysts. Denies: Hx Peritoneal Dialysis GI Medical History: Reports: Hx Irritable Bowel Musculoskeltal Medical History: Reports Hx Muscle Spasm, Reports Hx Musculoskeletal Deformity - Left leg 1 inch shorter than right Past Surgical History: Reports: Hx Abdominal Surgery, Hx Adenoidectomy, Hx Cholecystectomy, Hx Gynecologic Surgery - ovarian cyst, Hx Orthopedic Surgery, Hx Tonsillectomy - Immunizations Hx Diphtheria, Pertussis, Tetanus Vaccination: Yes Review of Systems - Review of Systems Notes: Constitutional: Negative for fever. HENT: Positive for sore throat. Eyes: Negative for visual changes. Cardiovascular: Negative for chest pain. Respiratory: Negative for shortness of breath. Gastrointestinal: Negative for abdominal pain, positive for vomiting Genitourinary: Negative for dysuria. Musculoskeletal: Negative for back pain. Skin: Negative for rash. Neurological: Negative for headaches, weakness or numbness. 10 point ROS negative except as marked above and in HPI. Physical Exam - Vital signs Vitals: Temp Pulse Resp BP Pulse Ox 99.5 F 91 18 121/93 H 98 11/03/17 17:05 11/03/17 17:05 11/03/17 17:05 11/03/17 17:05 11/03/17 17:05 Interpretation: Normal Notes: PHYSICAL EXAMINATION: GENERAL: Well-appearing, well-nourished and in no acute distress. HEAD: Atraumatic, normocephalic. EYES: Pupils equal round and reactive to light, extraocular movements intact, sclera anicteric, conjunctiva are normal. ENT: nares patent, oropharynx clear without exudates. Moist mucous membranes. NECK: Normal range of motion, bilateral anterior cervical lymphadenopathy LUNGS: Breath sounds clear to auscultation bilaterally and equal. No wheezes rales or rhonchi. HEART: Regular rate and rhythm without murmurs ABDOMEN: Soft, nontender, normoactive bowel sounds. No guarding, no rebound. No masses appreciated. EXTREMITIES: Normal range of motion, no pitting or edema. No cyanosis. NEUROLOGICAL: No focal neurological deficits. Moves all extremities spontaneously and on command. PSYCH: Normal mood, normal affect. SKIN: Warm, Dry, normal turgor, no rashes or lesions noted. Course - Re-evaluation Re-evalutation: 11/03/17 18:52 Presentation of a well-appearing 32-year-old female with a history of cerebral palsy who presents complaining of throat pain for the past 3-4 days. She reports that she was told by her primary care doctor that there was something wrong with the radiographic image that was taken of her throat and that it was abnormal but per her report she was later told that it was not abnormal. At the time of my evaluation she is not having any difficulty handling her oral secretions, is talking at her baseline per her report with some expressive dysarthria secondary to her baseline cerebral palsy. She is well hydrated on exam. Vitals are within normal limits. A CT scan of the soft tissue of the neck was obtained in triage prior to my assessment and the results are pending. Her labs are otherwise completely unremarkable. I suspect the patient likely has a viral pharyngitis but will await the CT results to definitively exclude a retropharyngeal abscess 11/03/17 19:35 CT unremarkable of the neck. Patient continues to well-appearing. Swallowing oral secretions without difficulty. At this time will discharge with return precautions and follow-up recommendations. Verbal discharge instructions given a the bedside and opportunity for questions given. Medication warnings reviewed. Patient is in agreement with this plan and has verbalized understanding of return precautions and the need for primary care follow-up in the next 24-72 hours. - Vital Signs Vital signs: Temp Pulse Resp BP Pulse Ox 98.8 F 82 16 124/85 98 11/03/17 20:30 11/03/17 20:30 11/03/17 20:30 11/03/17 20:30 11/03/17 20:30 - Laboratory Result Diagrams: 11/03/17 17:30 11/03/17 17:30 Laboratory results interpreted by me: 11/03/17 17:30 Sodium 147.1 H Chloride 109 H - Diagnostic Test Radiology reviewed: Reports reviewed Discharge - Discharge Clinical Impression: Throat pain, Dysphasia, Viral pharyngitis Condition: Good Disposition: HOME, SELF-CARE Additional Instructions: Your strep test is negative. Your symptoms are likely due to an viral infection and will resolve in the next 1-2 weeks. You have also been given a dose of steroids to help with your throat discomfort. Please continue to take ibuprofen 600 mg every 6 hours or Tylenol 1000 mg every 6 hours as needed for throat discomfort. You can also gargle with salt water. Continue to drink plenty of fluids. Follow-up with your primary care doctor in the next several days. Return if you become unable to swallow, have difficulty breathing, pass out, have persistent vomiting that prevents you from being able to tolerate fluids, or have any other symptoms that are concerning to you. Referrals: AYE BOYD, DO [Primary Care Provider] - Follow up as needed
--- NOTE | 2017-11-03 18:56 | RADIOLOGY REPORT (SQ) ---
EXAM DESCRIPTION: CT SOFT TISSUE NECK WITH COMPLETED DATE/TIME: 11/03/2017 6:45 pm REASON FOR STUDY: trissmus, problems swallowing, sore throat COMPARISON: 04/11/2015 TECHNIQUE: Post IV contrasted scanning from skull base through lung apices with review of bone, soft tissue and lung windows. Reconstructed coronal and sagittal MPR images reviewed. All images stored on PACS. All CT scanners at this facility use dose modulation, iterative reconstruction, and/or weight based d osing when appropriate to reduce radiation dose to as low as reasonably achievable (ALARA). [facility]: Dose Right [facility]: CareDose [facility]: Dose Right [facility]: Teradose 4D [facility]: panpan CONTRAST TYPE AND DOSE: contrast/concentration: Isovue 370.00 mg/ml; Total Contrast Delivered: 75.0 ml; Total Saline Delivered: 55.0 ml RENAL FUNCTION: BUN 12; creatinine 1.02 RADIATION DOSE: CT Rad equipment meets quality standard of care and radiation dose reduction techniq ues were employed. CTDIvol: 10.4 mGy. DLP: 288 mGy-cm. . LIMITATIONS: None. FINDINGS: SKULL BASE: Intact. MAJOR SALIVARY GLANDS: No solid or cystic masses. No inflammatory changes. LYMPHADENOPATHY: No adenopathy. MUCOSAL MASSES OR ASYMMETRY: No mucosal masses or asymmetry. LARYNX/CORDS: No abnormal findings. VASCULAR STRUCTURES: The major vessels are patent. LUNG APICES: Clear. BONES: Intact. THYROID: Normal size. No masses. PARANASAL SINUSES: Clear. OTHER: No other significant finding. IMPRESSION: NO SIGNIFICANT FINDING IN THE SOFT TISSUES OF THE NECK. TECHNICAL DOCUMENTATION: JOB ID: [id number] Quality ID # [id number]: Final reports with documentation of one or more dose reduction techniques (e.g., Au tomated exposure control, adjustment of the mA and/or kV according to patient size, use of iterative reconstruction technique) 2010 [id number]- All Rights Reserved Reading location - IP/workstation name: [email or web address]
[2017-11-03] MEDS ORDERED: DIPHENHYDRAMINE HCL 50 MG/ML VIAL IV ONE (19:39)
[2017-11-03] MEDS ORDERED: DIPHENHYDRAMINE HCL 50 MG/ML VIAL ONE (19:40)
[2017-11-03 20:31] VITALS: BP 124/85
== END 2017-11-03 20:29 | disposition home or self-care (01) ==
LOC: ER 17:00
DX: J02.8 Acute pharyngitis due to other specified organisms (principal); B97.89 Other viral agents as the cause of diseases classified elsewhere; R13.10 Dysphagia, unspecified; R11.10 Vomiting, unspecified; J45.909 Unspecified asthma, uncomplicated; G80.9 Cerebral palsy, unspecified; Z88.5 Allergy status to narcotic agent; Z88.8 Allergy status to other drugs, medicaments and biological substances
CPT/HCPCS: 99284; 96361; 96374; 96375; 36415; 87070; 87880; 85025; 80048; 70491; J1200; J2765; J7030; J1100

== ENCOUNTER 2018-01-16 19:31 | Emergency (ER) | payer MEDICARE, MEDICAID ==
[2018-01-16] MEDS ORDERED: EPINEPHRINE INJ/PF 1 MG/1 ML AMPULE ONE (19:47)
[2018-01-16] MEDS ORDERED: ONDANSETRON HCL INJ/PF 4 MG/2 ML SDV IV ONE (19:50)
[2018-01-16] MEDS ORDERED: DIPHENHYDRAMINE HCL 50 MG/ML VIAL IV ONE (19:50)
[2018-01-16] MEDS ORDERED: FAMOTIDINE INJ/PF 20 MG/2 ML SDV IV ONE (19:50)
[2018-01-16] MEDS ORDERED: EPINEPHRINE INJ/PF 1 MG/1 ML AMPULE IM ONE (19:50)
[2018-01-16] MEDS ORDERED: DEXAMETHASONE SOD PHOS INJ 10 MG/1 ML VIAL IV ONE (19:50)
--- NOTE | 2018-01-16 19:50 | ER Document Report ---
ED General - General Chief Complaint: Allergic Reaction Stated Complaint: POSSIBLE ALLERGIC REACTION Time Seen by Provider: 01/16/18 19:49 Notes: Patient is a 32-year-old female with a past medical history of cerebral palsy who presents with diffuse urticaria and redness to her face. The patient states that this occurred approximately 45 minutes prior to arrival, she is unsure of the trigger. No history of similar symptoms in the past. Nothing improves the symptoms since onset. She denies difficulty breathing, swallowing , vomiting, diarrhea or syncope. She does describe the areas of urticaria as a burning, itching sensation. She has not been able to see her primary doctor regarding today's concerns. TRAVEL OUTSIDE OF THE [place] IN LAST 30 DAYS: No - Related Data Allergies/Adverse Reactions: hydromorphone HCl [From Dilaudid] Allergy (Verified 01/16/18 19:42) ketorolac tromethamine [From Toradol] Allergy (Verified 01/16/18 19:42) promethazine HCl [From Phenergan] Allergy (Verified 01/16/18 19:42) Past Medical History - General Information source: Patient - Social History Smoking Status: Never Smoker Frequency of alcohol use: None Drug Abuse: None Lives with: Family Family History: Arthritis, CAD, DM, Hypertension, Malignancy, Thyroid Disfunction, Other - Uncle of an aneurysm Pulmonary Medical History: Reports: Hx Asthma, Hx Bronchitis Neurological Medical History: Reports: Hx Migraine Endocrine Medical History: Reports: Hx Hypothyroidism Renal/ Medical History: Reports: Hx Ovarian Cysts. Denies: Hx Peritoneal Dialysis GI Medical History: Reports: Hx Irritable Bowel Musculoskeletal Medical History: Reports Hx Muscle Spasm, Reports Hx Musculoskeletal Deformity - Left leg 1 inch shorter than right Past Surgical History: Reports: Hx Abdominal Surgery, Hx Adenoidectomy, Hx Cholecystectomy, Hx Gynecologic Surgery - ovarian cyst, Hx Orthopedic Surgery, Hx Tonsillectomy - Immunizations Hx Diphtheria, Pertussis, Tetanus Vaccination: Yes Review of Systems - Review of Systems Notes: Constitutional: Negative for fever. HENT: Negative for sore throat. Eyes: Negative for visual changes. Cardiovascular: Negative for chest pain. Respiratory: Negative for shortness of breath. Gastrointestinal: Negative for abdominal pain, vomiting or diarrhea. Genitourinary: Negative for dysuria. Musculoskeletal: Negative for back pain. Skin: Positive for rash. Neurological: Negative for headaches, weakness or numbness. 10 point ROS negative except as marked above and in HPI. Physical Exam - Vital signs Vitals: Temp Pulse Resp BP Pulse Ox 98.5 F 88 23 H 118/88 H 100 01/16/18 19:40 01/16/18 19:40 01/16/18 19:40 01/16/18 19:40 01/16/18 19:40 Interpretation: Normal Notes: PHYSICAL EXAMINATION: GENERAL: Well-appearing, well-nourished and in no acute distress. HEAD: Atraumatic, normocephalic. EYES: Pupils equal round and reactive to light, extraocular movements intact, sclera anicteric, conjunctiva are normal. ENT: nares patent, oropharynx clear without exudates. Moist mucous membranes. NECK: Normal range of motion, supple without lymphadenopathy LUNGS: Breath sounds clear to auscultation bilaterally and equal. No wheezes rales or rhonchi. HEART: Regular rate and rhythm without murmurs ABDOMEN: Soft, nontender, normoactive bowel sounds. No guarding, no rebound. No masses appreciated. EXTREMITIES: Normal range of motion, no pitting or edema. No cyanosis. NEUROLOGICAL: No focal neurological deficits. Moves all extremities spontaneously and on command. PSYCH: Normal mood, normal affect. SKIN: Warm, Dry, normal turgor, diffuse urticarial lesions over the bilateral upper extremities, lower abdomen, back and face Course - Re-evaluation Re-evalutation: 01/16/18 19:49 Patient presents with symptoms consistent with an allergic reaction without anaphylaxis. Only cutaneous involvement with multiple areas of hives. Vitals otherwise within normal limits at time of arrival. No respiratory, GI, cardiovascular, or oral pharyngeal symptoms. A trial of epinephrine for symptom resolution was offered to the patient. This did resolve the majority of the patient's hives. Will recommend ongoing antihistamine therapy as an outpatient. At this time will discharge with return precautions and follow-up recommendations. Verbal discharge instructions given a the bedside and opportunity for questions given. Medication warnings reviewed. Patient is in agreement with this plan and has verbalized understanding of return precautions and the need for primary care follow-up in the next 24-72 hours. - Vital Signs Vital signs: Temp Pulse Resp BP Pulse Ox 98.0 F 88 20 118/88 H 95 01/16/18 20:25 01/16/18 19:40 01/16/18 20:00 01/16/18 19:40 01/16/18 20:00 Discharge - Discharge Clinical Impression: Urticaria Acute allergic reaction Qualifiers: Encounter type: initial encounter Qualified Code(s): T78.40XA - Allergy, unspecified, initial encounter Condition: Good Disposition: HOME, SELF-CARE Additional Instructions: You were seen today for hives. This can be either allergic, autoimmune, or environmental in origin. You can continue to take cetirizine 10mg up to 3 times daily as needed for itching. Apply the topical steroid cream that has been prescribed as needed for severe inching. IF YOU DEVELOP DIFFICULTY BREATHING, SPREADING OF HIVES, VOMITING, LIGHTHEADEDNESS, IMMEDIATELY AND CALL 911. Please follow-up with your primary care physician in the next 1-2 days. Referrals: AYE BOYD, [Primary Care Provider] - Follow up as needed
[2018-01-16] MEDS ORDERED: PREDNISONE 20 MG TABLET PO ONE (20:42)
[2018-01-16 21:04] VITALS: BP 121/82
== END 2018-01-16 21:06 | disposition home or self-care (01) ==
LOC: ER 19:31
DX: T78.40XA Allergy, unspecified, initial encounter (principal); L50.9 Urticaria, unspecified
CPT/HCPCS: 99283; 96372; 96374; 96375; J1200; J0171; A9270; J2405; S0028; J1100; J7512

== ENCOUNTER 2018-01-31 01:50 | Emergency (ER) | payer OTHER, MEDICARE, MEDICAID ==
[2018-01-31 02:05] VITALS: BP 127/95
[2018-01-31 02:17] LABS: APPEARANCE,URINE CLOUDY; BILIRUBIN,URINE NEGATIVE (NEGATIVE); COLOR,URINE YELLOW; GLUCOSE, URINE NEGATIVE (NEGATIVE); KETONES,URINE TRACE mg/dL (NEGATIVE); LEUKOCYTE ESTERASE,URINE NEGATIVE (NEGATIVE); NITRITE,URINE NEGATIVE (NEGATIVE); PROTEIN,URINE NEGATIVE (NEGATIVE); URINE SPECIFIC GRAVITY 1.025; UROBILINOGEN,URINE NEGATIVE mg/dL (<2.0)
--- NOTE | 2018-01-31 02:23 | ER Document Report ---
HPI - HPI Pain Level: 5 Notes: Patient is a 32-year-old female who presents to the ED complaining of right thumb pain status post crush injury at work prior to arrival. Patient states that she got her thumb pinched between wood and metal. Patient states that the pain does not radiate. She has not noticed any trauma to the skin. She is still able to move her thumb. Denies any headache, fever, URI, sore throat, chest pain, palpitations, syncope, cough, shortness of breath, wheeze, dyspnea, abdominal pain, nausea/vomiting/diarrhea, urinary retention, dysuria, hematuria , numbness/tingling, muscle paralysis/weakness, or rash. - ROS Systems Reviewed and Negative: Yes All other systems reviewed and negative - REPRODUCTIVE LMP: 01-25-18 Reproductive: DENIES: : Past Medical History - Social History Smoking Status: Never Smoker Family History: Arthritis, CAD, DM, Hypertension, Malignancy, Thyroid Disfunction, Other - Uncle of an aneurysm Pulmonary Medical History: Reports: Hx Asthma, Hx Bronchitis Neurological Medical History: Reports: Hx Migraine Endocrine Medical History: Reports: Hx Hypothyroidism Renal/ Medical History: Reports: Hx Ovarian Cysts. Denies: Hx Peritoneal Dialysis GI Medical History: Reports: Hx Irritable Bowel Musculoskeletal Medical History: Reports Hx Muscle Spasm, Reports Hx Musculoskeletal Deformity - Left leg 1 inch shorter than right Past Surgical History: Reports: Hx Abdominal Surgery, Hx Adenoidectomy, Hx Cholecystectomy, Hx Gynecologic Surgery - ovarian cyst, Hx Orthopedic Surgery, Hx Tonsillectomy - Immunizations Hx Diphtheria, Pertussis, Tetanus Vaccination: Yes Vertical Provider Document - CONSTITUTIONAL Agree With Documented VS: Yes Notes: PHYSICAL EXAMINATION: GENERAL: Well-appearing, well-nourished and in no acute distress. LUNGS: Breath sounds clear to auscultation bilaterally and equal. No wheezes rales or rhonchi. HEART: Regular rate and rhythm without murmurs, rubs, gallops. Musculoskeletal: right thumb: FROM to passive/active. Strength 5+/5. N/v intact distal. + tenderness to the distal and middle phalanx. No obvious swelling, ecchymosis, laceration, or deformity noted. Extremities: No cyanosis, clubbing, or edema b/l. Peripheral pulses 2+. Capillary refill less than 3 seconds. NEUROLOGICAL: Normal sensory, motor exams PSYCH: Normal mood, normal affect. SKIN: Warm, Dry, normal turgor, no rashes or lesions noted. - INFECTION CONTROL TRAVEL OUTSIDE OF THE [place] IN LAST 30 DAYS: No Course - Re-evaluation Re-evalutation: 01/31/18 03:23 Patient is an afebrile, well-hydrated, 32-year-old female who presents to the ED with rt thumb pain, suspect contusion. Vitals are acceptable without any significant tachycardia, tachypnea, or hypoxia. PE is otherwise unremarkable for any neurovascular compromise, obvious tendon/ligament rupture, obvious fracture/dislocation, septic joint. X-ray was unremarkable for any acute pathology. Finger splint applied. Pt given tylenol and ice. Patient is nontoxic -appearing. No other labs or imaging warranted at this time based on H&P. Conservative measures otherwise for symptoms. Recheck with your PCM in 3-5 days. Consider consult orthopedics. Return to the ED with any worsening/ concerning symptoms otherwise as reviewed in discharge. Patient is in agreement. - Vital Signs Vital signs: Temp Pulse Resp BP Pulse Ox 98.2 F 81 18 127/95 H 100 01/31/18 02:02 01/31/18 02:02 01/31/18 02:02 01/31/18 02:02 01/31/18 02:02 - Laboratory Laboratory results interpreted by me: 01/31/18 02:00 Urine Ketones TRACE H Urine Ascorbic Acid 40 H Discharge - Discharge Clinical Impression: Pain of right thumb Condition: Stable Disposition: HOME, SELF-CARE Additional Instructions: Rest, Ice, Compression, Elevation Use splint as needed Tylenol/ibuprofen as needed Light stretches daily Strength exercises as able Moist heat and massage may help F/u with your PCP in 3-5 days for a recheck Consider consult(s) with Orthopedics/physical therapy for ongoing/worsening symptoms Your symptoms should improve over time (pain/tingling), but if they do not- you should follow up with Orthopedics. Return to the ED with any worsening symptoms and/or development of fever, headache, chest pain, palpitations, syncope, shortness of breath, trouble breathing, abdominal pain, n/v/d, muscle weakness/paralysis, numbness/tingling, swelling, redness, or other worsening symptoms that are concerning to you. Forms: Elevated Blood Pressure Referrals: AYE BOYD DO [Primary Care Provider] - Follow up as needed [facility] [Provider Group] - Follow up as needed
[2018-01-31 02:30] LABS: URINE AMPHETAMINES SCREEN NEGATIVE; URINE BARBITURATES SCREEN NEGATIVE; URINE BENZODIAZEPINES SCREEN NEGATIVE; URINE COCAINE SCREEN NEGATIVE; URINE MARIJUANA (THC) SCREEN NEGATIVE; URINE METHADONE SCREEN NEGATIVE; URINE PHENCYCLIDINE SCREEN NEGATIVE
--- NOTE | 2018-01-31 02:37 | RADIOLOGY REPORT (SQ) ---
EXAM DESCRIPTION: XR HAND 3 OR MORE VIEWS COMPLETED DATE/TME: 01/31/2018 00:00 CLINICAL HISTORY: 32 years, Female, finger injury COMPARISON: None. NUMBER OF VIEWS: Three TECHNIQUE: Three views of the right hand LIMITATIONS: None. FINDINGS: There is no acute fracture or dislocation. The joint spaces are preserved. The carpal bones are intact IMPRESSION: No acute fracture or dislocation 2010 [employer]- All Rights Reserved
[2018-01-31] MEDS ORDERED: ACETAMINOPHEN 325 MG TABLET PO ONE (03:13)
== END 2018-01-31 03:46 | disposition home or self-care (01) ==
LOC: ER 01:50
DX: S67.01XA Crushing injury of right thumb, initial encounter (principal); W23.0XXA Caught, crushed, jammed, or pinched between moving objects, initial encounter; Y99.0 Civilian activity done for income or pay; J45.909 Unspecified asthma, uncomplicated
CPT/HCPCS: 80307; 81001; 99283

== ENCOUNTER 2018-03-19 10:18 | Emergency (ER) | payer MEDICARE, MEDICAID ==
[2018-03-19] MEDS ORDERED: NORMAL SALINE 1000 ML 1,000 ML IV ONE (10:50)
--- NOTE | 2018-03-19 10:50 | ER Document Report ---
ED General - General Chief Complaint: Lower Abdominal Pain Stated Complaint: VOMITING/DIZZINESS/ABDOMINAL PAIN Time Seen by Provider: 03/19/18 10:45 Notes: Patient is a 32-year-old female that presents to the emergency department for chief complaint of urinary frequency, and suprapubic abdominal pain. Patient states she is been having symptoms for approximately 2 weeks, and seemingly not getting better over the period of time. She describes the pain she is having as a constant ache in the suprapubic region, currently rates it as a 4 out of 10. She had associated nausea and vomiting, and as mentioned urinary frequency , but denies dysuria. She states she is currently on her menstrual cycle, and is having bleeding that is typical for her. She has had associated lightheadedness with this, but denies having any chest pain, shortness of breath , difficulty breathing, or headaches. Past Medical History: Cerebral palsy, migraine headaches Past Surgical History: Cholecystectomy, tonsillectomy, adenoidectomy Social History: Denies current tobacco, alcohol or illicit drug use. Family History: Reviewed and noncontributory for presenting illness Allergies: Reviewed, see documented allergy list. REVIEW OF SYSTEMS: Other than noted above, the 12 point review of systems was reviewed with the patient and were negative, all pertinent findings are included in the HPI. PHYSICAL EXAMINATION: Vital signs reviewed, nursing noted reviewed. GENERAL: Well-appearing, well-nourished and in no acute distress. HEAD: Atraumatic, normocephalic. EYES: Eyes appear normal, extraocular movements intact, sclera anicteric, conjunctiva are normal. ENT: nares patent, oropharynx clear without exudates. Moist mucous membranes. NECK: Normal range of motion, supple without lymphadenopathy LUNGS: Breath sounds clear to auscultation bilaterally and equal. No wheezes rales or rhonchi. HEART: Regular rate and rhythm without murmurs ABDOMEN: Soft, mild suprapubic tenderness with palpation, normoactive bowel sounds. No rebound, guarding, or rigidity. No masses appreciated. EXTREMITIES: Nontender, good range of motion, no pitting or edema. NEUROLOGICAL: No focal neurological deficits. Moves all extremities spontaneously Motor and sensory grossly intact on exam. PSYCH: Normal mood, normal affect. SKIN: Warm, Dry, normal turgor, no rashes or lesions noted on exposed skin TRAVEL OUTSIDE OF THE [place] IN LAST 30 DAYS: No - Related Data Allergies/Adverse Reactions: hydromorphone HCl [From Dilaudid] Allergy (Verified 03/19/18 10:21) ketorolac tromethamine [From Toradol] Allergy (Verified 03/19/18 10:21) promethazine HCl [From Phenergan] Allergy (Verified 03/19/18 10:21) Past Medical History - Social History Smoking Status: Never Smoker Frequency of alcohol use: None Drug Abuse: None Family History: Arthritis, CAD, DM, Hypertension, Malignancy, Thyroid Disfunction, Other - Uncle of an aneurysm Patient has suicidal ideation: No Patient has homicidal ideation: No Pulmonary Medical History: Reports: Hx Asthma, Hx Bronchitis Neurological Medical History: Reports: Hx Migraine Endocrine Medical History: Reports: Hx Hypothyroidism Renal/ Medical History: Reports: Hx Ovarian Cysts. Denies: Hx Peritoneal Dialysis GI Medical History: Reports: Hx Irritable Bowel Musculoskeletal Medical History: Reports Hx Muscle Spasm, Reports Hx Musculoskeletal Deformity - Left leg 1 inch shorter than right Past Surgical History: Reports: Hx Abdominal Surgery, Hx Adenoidectomy, Hx Cholecystectomy, Hx Gynecologic Surgery - ovarian cyst, Hx Orthopedic Surgery, Hx Tonsillectomy - Immunizations Hx Diphtheria, Pertussis, Tetanus Vaccination: Yes Physical Exam - Vital signs Vitals: Temp Pulse Resp BP Pulse Ox 98.6 F 97 20 130/93 H 99 03/19/18 10:32 03/19/18 10:32 03/19/18 10:32 03/19/18 10:32 03/19/18 10:32 Course - Re-evaluation Re-evalutation: Patient seen and examined vital signs reviewed. Laboratory data and imaging were ordered as appropriate for the patient's presenting symptoms and complaint, with consideration of any critical or life threatening conditions that may be associated with their obtained history and exam as noted above. Patient was treated with IVF and zofran Results were reviewed when available and demonstrated unremarkable CBC and CMP, UA had blood however patient is on menstrual period, possible UTI The patient was re-evaluated and was stable Evaluation was most consistent with nonspecific abdominal pain, UTI, advised to follow-up with gastroenterology if her symptoms persisted. Results were discussed with the patient at this point, after careful consideration I feel that that patient can be discharged from the emergency department, the patient was educated treatments and reasons to return to the emergency department based on their presumed diagnosis as noted above, they were advised to followup with a primary care physician in 2-3 days. Patient was agreeable to plan of care. *Note is created using voice recognition software and may contain spelling, syntax or grammatical errors. Laboratory 03/19/18 03/19/18 03/19/18 10:43 10:43 10:43 WBC 6.1 RBC 4.10 Hgb 13.2 Hct 37.8 MCV 92 MCH 32.2 MCHC 34.9 RDW 12.4 Plt Count 240 Seg Neutrophils % 54.2 Lymphocytes % 36.2 Monocytes % 7.0 Eosinophils % 1.9 Basophils % 0.7 Absolute Neutrophils 3.3 Absolute Lymphocytes 2.2 Absolute Monocytes 0.4 Absolute Eosinophils 0.1 Absolute Basophils 0.0 Sodium 143.5 Potassium 4.9 Chloride 106 Carbon Dioxide 26 Anion Gap 12 BUN 13 Creatinine 0.86 Est GFR ( Amer) > 60 Est GFR (Non-Af Amer) > 60 Glucose 85 Calcium 9.6 Total Bilirubin 0.5 Direct Bilirubin 0.3 Neonat Total Bilirubin Not Reportable Neonat Direct Bilirubin Not Reportable Neonat Indirect Bili Not Reportable AST 29 ALT 28 Alkaline Phosphatase 85 Total Protein 8.3 H Albumin 4.6 Lipase 56.7 Urine Color YELLOW Urine Appearance SLIGHTLY-CLOUDY Urine pH 5.0 Ur Specific [place] 1.028 Urine Protein NEGATIVE Urine Glucose (UA) NEGATIVE Urine Ketones NEGATIVE Urine Blood MODERATE H Urine Nitrite NEGATIVE Urine Bilirubin NEGATIVE Urine Urobilinogen NEGATIVE Ur Leukocyte Esterase NEGATIVE Urine WBC (Auto) 2 Urine RBC (Auto) 1 Squamous Epi Cells Auto 4 Urine Mucus (Auto) OCC Urine Ascorbic Acid NEGATIVE Urine HCG, Qual NEGATIVE - Vital Signs Vital signs: Temp Pulse Resp BP Pulse Ox 98.1 F 86 18 136/96 H 100 03/19/18 13:02 03/19/18 13:02 03/19/18 13:02 03/19/18 13:02 03/19/18 13:02 - Laboratory Result Diagrams: 03/19/18 10:43 03/19/18 10:43 Laboratory results interpreted by me: 03/19/18 03/19/18 10:43 10:43 Total Protein 8.3 H Urine Blood MODERATE H - EKG Interpretation by Me Additional EKG results interpreted by me: EKG demonstrates sinus rhythm with a ventricular rate of 85 bpm, normal axis, normal intervals, no evidence of acute ischemia on this EKG. Discharge - Discharge Clinical Impression: Abdominal pain Nausea & vomiting Qualifiers: Vomiting type: unspecified Vomiting Intractability: non-intractable Qualified Code(s): R11.2 - Nausea with vomiting, unspecified UTI (urinary tract infection) Qualifiers: Urinary tract infection type: site unspecified Hematuria presence: with hematuria Qualified Code(s): N39.0 - Urinary tract infection, site not specified ; R31.9 - Hematuria, unspecified; R31.9 - Hematuria, unspecified Condition: Stable Disposition: HOME, SELF-CARE Instructions: Nausea or Vomiting, Nonspecific ([facility]), Urinary Tract Infection ( [facility]) Additional Instructions: Please return to the emergency department if you have any worsening, or concern of your symptoms. Please return to the emergency department if you develop chest pain, difficulty breathing, severe abdominal pain, or ongoing vomiting. Please follow-up with your primary care physician in 2-3 days and any other recommended physicians. If prescribed, take all medications as directed. If you have any questions or concerns do not hesitate to return the emergency department for evaluation. Prescriptions: Cephalexin Monohydrate [Keflex 500 mg Capsule] 500 mg PO BID 3 Days #6 capsule Ondansetron [Zofran Odt 4 mg Tablet] 1 tab PO Q8H PRN #15 tab.rapdis PRN Reason: For Nausea/Vomiting Referrals: AYE BOYD DO [Primary Care Provider] - Follow up in 3-5 days KWASI CHAVEZ MD [ACTIVE STAFF] - Follow up in 3-5 days (GI)
[2018-03-19] MEDS ORDERED: ONDANSETRON HCL INJ/PF 4 MG/2 ML SDV IV ONE (10:51)
[2018-03-19 11:22] LABS: ABSOLUTE EOSINOPHILS # (AUTO) 0.1 10^3/uL (0.0-0.6); ABSOLUTE LYMPHOCYTES (AUTO) 2.2 10^3/uL (0.5-4.7); ABSOLUTE MONOCYTES (AUTO) 0.4 10^3/uL (0.1-1.4); ABSOLUTE NEUT (AUTO) 3.3 10^3/uL (1.7-8.2); BASOPHILS % (AUTO) 0.7 % (0-2); EOSINOPHILS % (AUTO) 1.9 % (0-6); HEMATOCRIT 37.8 % (36.0-47.0); HEMOGLOBIN 13.2 g/dL (12.0-15.5); LYMPHOCYTES % (AUTO) 36.2 % (13-45); MEAN CORPUSCULAR HEMOGLOBIN 32.2 pg (27.0-33.4); MEAN CORPUSCULAR HGB CONC 34.9 g/dL (32.0-36.0); MEAN CORPUSCULAR VOLUME 92 fl (80-97); PLATELET COUNT 240 10^3/uL (150-450); RED CELL DISTRIBUTION WIDTH 12.4 % (11.5-14.0); SEGMENTED NEUTROPHILS % (AUTO) 54.2 % (42-78); TOTAL CELLS COUNTED % (AUTO) 100 %; WHITE BLOOD COUNT 6.1 10^3/uL (4.0-10.5)
[2018-03-19 11:46] LABS: ALANINE AMINOTRANSFERASE 28 U/L (9-52); ALBUMIN 4.6 g/dL (3.5-5.0); ALKALINE PHOSPHATASE 85 U/L (38-126); ANION GAP 12 (5-19); ASPARTATE AMINO TRANSFERASE 29 U/L (14-36); BILIRUBIN,DIRECT 0.3 mg/dL (0.0-0.4); BILIRUBIN,TOTAL 0.5 mg/dL (0.2-1.3); BLOOD UREA NITROGEN 13 mg/dL (7-20); CALCIUM 9.6 mg/dL (8.4-10.2); CARBON DIOXIDE 26 mmol/L (22-30); CHLORIDE 106 mmol/L (98-107); GLUCOSE 85 mg/dL (75-110); LIPASE 56.7 U/L (23-300); POTASSIUM 4.9 mmol/L (3.6-5.0); SODIUM 143.5 mmol/L (137-145); TOTAL PROTEIN 8.3 g/dL (6.3-8.2)
[2018-03-19 11:50] LABS: APPEARANCE,URINE SLIGHTLY-CLOUDY; BILIRUBIN,URINE NEGATIVE (NEGATIVE); COLOR,URINE YELLOW; GLUCOSE, URINE NEGATIVE (NEGATIVE); KETONES,URINE NEGATIVE (NEGATIVE); LEUKOCYTE ESTERASE,URINE NEGATIVE (NEGATIVE); NITRITE,URINE NEGATIVE (NEGATIVE); PROTEIN,URINE NEGATIVE (NEGATIVE); URINE SPECIFIC GRAVITY 1.028; UROBILINOGEN,URINE NEGATIVE mg/dL (<2.0)
[2018-03-19 13:03] VITALS: BP 136/96
--- NOTE | 2018-03-20 07:25 | EKG REPORT ---
SEVERITY:- NORMAL ECG - SINUS RHYTHM : Confirmed by: Kamron Stroud 20-Mar-2018 07:24:55
== END 2018-03-19 13:03 | disposition home or self-care (01) ==
LOC: ER 10:18
DX: R11.2 Nausea with vomiting, unspecified (principal); N39.0 Urinary tract infection, site not specified; R31.9 Hematuria, unspecified; R10.30 Lower abdominal pain, unspecified; R35.0 Frequency of micturition; R42 Dizziness and giddiness; J45.909 Unspecified asthma, uncomplicated; Z88.5 Allergy status to narcotic agent; Z88.8 Allergy status to other drugs, medicaments and biological substances; Z90.49 Acquired absence of other specified parts of digestive tract
CPT/HCPCS: 93005; 99284; 96361; 96374; 36415; 83690; 85025; 81025; 80053; 81001; 93010; J2405; J7030

== ENCOUNTER 2018-04-11 13:10 | Day surgery (SDC) | payer MEDICARE, MEDICAID ==
[~2018-04-11 13:10] MED LIST: DIPHENHYDRAMINE HCL 50 MG/ML VIAL ONE; EPINEPHRINE INJ 1 MG/10 ML DISP.SYRIN ONE; FENTANYL CITRATE INJ/PF 100 MCG/2 ML AMPUL ONE; FLUMAZENIL INJ 0.5 MG/5 ML VIAL ONE; GLUCAGON,HUMAN RECOMB 1 MG INJ ONE; NALOXONE HCL INJ/PF 0.4 MG/1 ML SDV ONE; ONDANSETRON HCL INJ/PF 4 MG/2 ML SDV ONE
[2018-04-11] MEDS: MIDAZOLAM 2 MG/2 ML INJ ONE ×2 (13:31→13:35)
--- NOTE | 2018-04-11 13:45 | Operative Report ---
Operative Report DATE OF SURGERY: 04/11/18 Operative Report: The risks benefits and alternatives of the procedure explained to the patient in detail and informed consent is obtained.A GIF Olympus video scope was inserted into the patient's mouth and hypopharynx, the esophagus is identified intubated and insufflated, the scope was then advanced through the esophagus stomach and duodenum, retroflexion maneuver is done, the esophagus stomach and first and second portions of the duodenum examined PREOPERATIVE DIAGNOSIS: Epigastric pain rule out peptic ulcer disease POSTOPERATIVE DIAGNOSIS: Gastritis status post biopsy without Helicobacter pylori OPERATION: EGD with biopsy SURGEON: SOFÍA LUNA ANESTHESIA: Moderate Sedation - 25 mg of Benadryl. 3 mg of Versed. 50 mcg of fentanyl. Conscious sedation monitoring time 30 minutes. TISSUE REMOVED OR ALTERED: As noted above. COMPLICATIONS: None. ESTIMATED BLOOD LOSS: None. INTRAOPERATIVE FINDINGS: As noted above. PROCEDURE: Patient tolerated the procedure well. No immediate postprocedure complications are noted. Patient discharged in good condition. Discharge date 04/11/2018. Discharge diet: Regular. Discharge activity: Regular. 2-3-week follow-up to discuss findings. Patient is instructed to call the office or proceed to the emergency room should there be any further problems or questions. Wait on the pathology.
[2018-04-11 14:45] VITALS: BP 120/87
== END 2018-04-11 14:55 | disposition home or self-care (01) ==
LOC: END 13:10
PROVIDERS: ATTEND Internal Medicine Gastroenterology
DX: K29.70 Gastritis, unspecified, without bleeding (principal); R10.13 Epigastric pain; G80.3 Athetoid cerebral palsy
CPT/HCPCS: 43239; 88342 ×2; 88305 ×2; J2250; J1200; J3010; J0171; J1610; J2310; J2405; J3490

== ENCOUNTER 2018-04-26 10:03 | Emergency (ER) | payer MEDICARE, MEDICAID ==
--- NOTE | 2018-04-26 10:22 | ER Document Report ---
ED Medical Screen (RME) - General Chief Complaint: Abdominal Pain Stated Complaint: ABDOMINAL PAIN Time Seen by Provider: 04/26/18 10:19 Notes: 32-year-old female patient had EGD on 04/19/2018, since then has had increasing abdominal pain with nauseousness and dizziness. Room in the main ED is available at this time so the patient will be moved directly back. I have greeted and performed a rapid initial assessment of this patient. A comp rehensive ED assessment and evaluation of the patient, analysis of test results and completion of the medical decision making process will be conducted by additional ED providers. TRAVEL OUTSIDE OF THE [place] IN LAST 30 DAYS: No - Related Data Allergies/Adverse Reactions: hydromorphone HCl [From Dilaudid] Allergy (Verified 04/11/18 13:19) ketorolac tromethamine [From Toradol] Allergy (Verified 04/11/18 13:19) promethazine HCl [From Phenergan] Allergy (Verified 04/11/18 13:19) Past Medical History - Social History Chew tobacco use (# tins/day): No Frequency of alcohol use: Occasional Drug Abuse: None - Past Medical History Cardiac Medical History: Denies: Hx Coronary Artery Disease, Hx Heart Attack, Hx Hypertension Pulmonary Medical History: Reports: Hx Asthma, Hx Bronchitis, Hx Pneumonia Denies: Hx COPD Neurological Medical History: Reports: Hx Migraine. Denies: Hx Cerebrovascular Accident, Hx Seizures Endocrine Medical History: Reports: Hx Hypothyroidism Renal/ Medical History: Reports: Hx Ovarian Cysts. Denies: Hx Peritoneal Dialysis GI Medical History: Reports: Hx Irritable Bowel Musculoskeltal Medical History: Reports Hx Arthritis, Reports Hx Muscle Spasm, Reports Hx Musculoskeletal Deformity - Left leg 1 inch shorter than right Past Surgical History: Reports: Hx Abdominal Surgery, Hx Adenoidectomy, Hx Cholecystectomy, Hx Gynecologic Surgery - ovarian cyst, Hx Orthopedic Surgery, Hx Tonsillectomy. Denies: Hx Hysterectomy - Immunizations Hx Diphtheria, Pertussis, Tetanus Vaccination: Yes Doctor's Discharge - Discharge Referrals: AYE BOYD DO [Primary Care Provider] - Follow up as needed
[2018-04-26] MEDS ORDERED: NORMAL SALINE 1000 ML 1,000 ML IV ONE (10:44)
[2018-04-26 10:53] LABS: ABSOLUTE EOSINOPHILS # (AUTO) 0.1 10^3/uL (0.0-0.6); ABSOLUTE LYMPHOCYTES (AUTO) 2.6 10^3/uL (0.5-4.7); ABSOLUTE MONOCYTES (AUTO) 0.4 10^3/uL (0.1-1.4); ABSOLUTE NEUT (AUTO) 3.2 10^3/uL (1.7-8.2); BASOPHILS % (AUTO) 0.6 % (0-2); EOSINOPHILS % (AUTO) 0.8 % (0-6); HEMATOCRIT 39.6 % (36.0-47.0); HEMOGLOBIN 13.5 g/dL (12.0-15.5); LYMPHOCYTES % (AUTO) 40.8 % (13-45); MEAN CORPUSCULAR HEMOGLOBIN 31.7 pg (27.0-33.4); MEAN CORPUSCULAR VOLUME 93 fl (80-97); PLATELET COUNT 244 10^3/uL (150-450); RED BLOOD COUNT 4.25 10^6/uL (3.72-5.28); RED CELL DISTRIBUTION WIDTH 12.8 % (11.5-14.0); SEGMENTED NEUTROPHILS % (AUTO) 50.8 % (42-78); TOTAL CELLS COUNTED % (AUTO) 100 %; WHITE BLOOD COUNT 6.3 10^3/uL (4.0-10.5)
[2018-04-26 11:10] LABS: ALANINE AMINOTRANSFERASE 34 U/L (9-52); ALBUMIN 4.6 g/dL (3.5-5.0); ALKALINE PHOSPHATASE 89 U/L (38-126); ANION GAP 10 (5-19); ASPARTATE AMINO TRANSFERASE 32 U/L (14-36); BILIRUBIN,DIRECT 0.3 mg/dL (0.0-0.4); BILIRUBIN,TOTAL 0.5 mg/dL (0.2-1.3); BLOOD UREA NITROGEN 14 mg/dL (7-20); CALCIUM 9.5 mg/dL (8.4-10.2); CARBON DIOXIDE 24 mmol/L (22-30); CHLORIDE 109 mmol/L (98-107); GLUCOSE 85 mg/dL (75-110); LIPASE 69.1 U/L (23-300); POTASSIUM 4.5 mmol/L (3.6-5.0); SODIUM 142.6 mmol/L (137-145)
[2018-04-26 11:16] LABS: APPEARANCE,URINE CLOUDY; BILIRUBIN,URINE NEGATIVE (NEGATIVE); COLOR,URINE YELLOW; GLUCOSE, URINE NEGATIVE (NEGATIVE); KETONES,URINE NEGATIVE (NEGATIVE); LEUKOCYTE ESTERASE,URINE NEGATIVE (NEGATIVE); NITRITE,URINE NEGATIVE (NEGATIVE); PROTEIN,URINE NEGATIVE (NEGATIVE); URINE SPECIFIC GRAVITY 1.026; UROBILINOGEN,URINE NEGATIVE mg/dL (<2.0)
[2018-04-26] MEDS ORDERED: DIPHENHYDRAMINE HCL 50 MG/ML VIAL IV ONE ×2 (11:19→14:15)
[2018-04-26] MEDS ORDERED: MORPHINE SULFATE 10 MG/ML INJ IV ONE ×2 (11:19→13:35)
[2018-04-26] MEDS ORDERED: ONDANSETRON HCL INJ/PF 4 MG/2 ML SDV IV ONE (13:35)
[2018-04-26] MEDS ORDERED: DIPHENHYDRAMINE HCL 50 MG/ML VIAL ONE (14:15)
--- NOTE | 2018-04-26 15:40 | RADIOLOGY REPORT (SQ) ---
EXAM DESCRIPTION: CT ABD/PELVIS WITH IV ORAL COMPLETED DATE/TIME: 04/26/2018 3:25 pm REASON FOR STUDY: abd pain s/p EGD eval for perforation COMPARISON: None. TECHNIQUE: CT scan of the abdomen and pelvis performed using helical scanning technique with dynamic intravenous contrast injection. No oral contrast. Images reviewed with lung, soft tissue, and bone windows. Reconstructed coronal and sagittal MPR images reviewed. Delayed images for evaluation of the urinary system also acquired. All images stored on PACS. All CT scanners at this facility use dose modulation, iterative reconstruction, and/or weight based d osing when appropriate to reduce radiation dose to as low as reasonably achievable (ALARA). [facility]: Dose Right [facility]: CareDose [facility]: Dose Right [facility]: Teradose 4D [facility]: Interact.io CONTRAST TYPE AND DOSE: contrast/concentration: Isovue 350.00 mg/ml; Total Contrast Delivered: 72.0 ml; Total Saline Delivered: 39.3 ml Additional oral Gastrografin enteric contrast was administered. RENAL FUNCTION: None required. The patient is less than 50 years old. RADIATION DOSE: CT Rad equipment meets quality standard of care and radiation dose reduction techniq ues were employed. CTDIvol: 7.6 - 9.4 mGy. DLP: 861 mGy-cm.. LIMITATIONS: None. FINDINGS: LOWER CHEST: No significant findings. No nodules or infiltrates. LIVER: Normal size. No masses. No dilated ducts. SPLEEN: Normal size. No focal lesions. PANCREAS: No masses. No significant calcifications. No adjacent inflammation or peripancreatic fluid collections. Pancreatic duct not dilated. GALLBLADDER: Surgically absent. ADRENAL GLANDS: No significant masses or asymmetry. RIGHT KIDNEY AND URETER: No solid masses. No significant calcifications. No hydronephrosis or hyd roureter. LEFT KIDNEY AND URETER: No solid masses. No significant calcifications. No hydronephrosis or hydr oureter. AORTA AND VESSELS: No aneurysm. No dissection. Renal arteries, SMA, celiac without stenosis. RETROPERITONEUM: No retroperitoneal adenopathy, hemorrhage or masses. BOWEL AND PERITONEAL CAVITY: No masses or inflammatory changes. No free fluid or peritoneal masses. APPENDIX: Normal. PELVIS: No mass. No free fluid. Normal bladder. ABDOMINAL WALL: No masses. No hernias. BONES: No significant or acute findings. OTHER: No other significant finding. IMPRESSION: No intra-abdominal free air, extraluminal enteric contrast, or other findings to suggest gastric perforation status post EGD. No CT findings to explain acute abdominal pain. TECHNICAL DOCUMENTATION: JOB ID: [id number] Quality ID # [id number]: Final reports with documentation of one or more dose reduction techniques (e.g., Au tomated exposure control, adjustment of the mA and/or kV according to patient size, use of iterative reconstruction technique) 2010 [employer]- All Rights Reserved Reading location - IP/workstation name: [email or web address]
[2018-04-26] MEDS ORDERED: ONDANSETRON ODT 4 MG TAB (6 TAB/ER DISP) PO PRN (16:17)
--- NOTE | 2018-04-26 16:20 | ER Document Report ---
ED General - General Chief Complaint: Abdominal Pain Stated Complaint: ABDOMINAL PAIN Time Seen by Provider: 04/26/18 10:19 Notes: Patient is an otherwise healthy 32-year-old female who presents to the emergency department complaining of mid abdominal pain, nausea and dizziness. She reports her symptoms started on 04/19/18. She reports that the pain is in the epigastric region. She reports that she had an endoscopy done on the same day that the pain started. Patient denies any fever, vomiting or diarrhea. 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 Patient is in no acute distress at this time. TRAVEL OUTSIDE OF THE [place] IN LAST 30 DAYS: No - Related Data Allergies/Adverse Reactions: hydromorphone HCl [From Dilaudid] Allergy (Verified 04/11/18 13:19) ketorolac tromethamine [From Toradol] Allergy (Verified 04/11/18 13:19) promethazine HCl [From Phenergan] Allergy (Verified 04/11/18 13:19) Past Medical History - General Information source: Patient - Social History Smoking Status: Never Smoker Chew tobacco use (# tins/day): No Frequency of alcohol use: Occasional Drug Abuse: None Family History: Arthritis, CAD, DM, Hypertension, Malignancy, Thyroid Disfunction, Other - Uncle of an aneurysm Patient has suicidal ideation: No Patient has homicidal ideation: No - Past Medical History Cardiac Medical History: Denies: Hx Coronary Artery Disease, Hx Heart Attack, Hx Hypertension Pulmonary Medical History: Reports: Hx Asthma, Hx Bronchitis, Hx Pneumonia Denies: Hx COPD Neurological Medical History: Reports: Hx Migraine. Denies: Hx Cerebrovascular Accident, Hx Seizures Endocrine Medical History: Reports: Hx Hypothyroidism Renal/ Medical History: Reports: Hx Ovarian Cysts. Denies: Hx Peritoneal Dialysis GI Medical History: Reports: Hx Irritable Bowel Musculoskeletal Medical History: Reports Hx Arthritis, Reports Hx Muscle Spasm, Reports Hx Musculoskeletal Deformity - Left leg 1 inch shorter than right Past Surgical History: Reports: Hx Abdominal Surgery, Hx Adenoidectomy, Hx Cholecystectomy, Hx Gynecologic Surgery - ovarian cyst, Hx Orthopedic Surgery, Hx Tonsillectomy. Denies: Hx Hysterectomy - Immunizations Hx Diphtheria, Pertussis, Tetanus Vaccination: Yes Review of Systems - Review of Systems Constitutional: Other - Dizziness Gastrointestinal: Abdominal pain, Nausea -: Yes All other systems reviewed and negative Physical Exam - Vital signs Vitals: Resp Pulse Ox 18 100 04/26/18 10:27 04/26/18 10:27 - Notes Notes: PHYSICAL EXAMINATION: GENERAL: Well-appearing, well-nourished and in no acute distress. HEAD: Atraumatic, normocephalic. EYES: Pupils equal round and reactive to light, extraocular movements intact, conjunctiva are normal. ENT: Nares patent, oropharynx clear without exudates. Moist mucous membranes. NECK: Normal range of motion, supple without lymphadenopathy LUNGS: Breath sounds clear to auscultation bilaterally and equal. No wheezes rales or rhonchi. HEART: Regular rate and rhythm without murmurs ABDOMEN: Soft, nondistended abdomen. tenderness to palpation to epigastric region. No guarding, no rebound. No masses appreciated. Female : deferred Musculoskeletal: Normal range of motion, no pitting or edema. No cyanosis. NEUROLOGICAL: Cranial nerves grossly intact. Normal speech, normal gait. Normal sensory, motor exams PSYCH: Normal mood, normal affect. SKIN: Warm, Dry, normal turgor, no rashes or lesions noted. Course - Re-evaluation Re-evalutation: Patient's physical examination is relatively unremarkable. Patient does have some tenderness to the epigastric region. Labs will be obtained and a CT abdomen pelvis will be ordered as patient did have a recent endoscopy and states the pain started immediately afterwards. CBC, CMP and urinalysis are unremarkable. HCG is negative. CT of the abdomen and pelvis with no acute findings, no perforation. Patient reports she is feeling much improved after administration of antiemetics and pain medications. Patient will be discharged home in stable condition with strict ED return precautions. - Vital Signs Vital signs: Temp Pulse Resp BP Pulse Ox 97.8 F 16 115/89 H 81 L 04/26/18 16:01 04/26/18 16:01 04/26/18 16:00 04/26/18 15:00 - Laboratory Result Diagrams: 04/26/18 10:35 04/26/18 10:35 Laboratory results interpreted by me: 04/26/18 04/26/18 10:35 11:00 Chloride 109 H Urine Blood SMALL H Urine Ascorbic Acid 20 H Discharge - Discharge Clinical Impression: Nausea Abdominal pain Qualifiers: Abdominal location: generalized Qualified Code(s): R10.84 - Generalized ab dominal pain Condition: Stable Disposition: HOME, SELF-CARE Additional Instructions: Abdominal Pain There are many causes of abdominal pain. Pain can mean a serious problem requiring surgery (such as appendicitis). It can also be an innocent problem that goes away on its own (such as a viral infection). Often, time must pass to determine the cause of pain. The physician does not feel that hospitalization is necessary, at present. Things may change within the next 24 hours. Call the doctor or come back for re- examination if any problems occur, such as: (1) Pain that becomes more severe, steady, or becomes concentrated in one specific area. Also, pain that is more severe with movement or coughing. (2) Vomiting that persists or becomes more frequent. (3) Blood in the vomitus, urine, or bowel movements. Blood in the stool may have a tarry or black appearance. (4) Shaking chills or fever greater than 100 degrees F. (5) The abdomen becomes more distended or swollen. (6) Bowel movements cease. (7) Failure to improve as expected. Your blood work and CAT scan today were normal. There is no evidence of any life-threatening pathology going on in your abdomen. There is no evidence of a perforation. Please take the nausea medication as prescribed. Follow-up with your business trainer as originally planned. Prescriptions: Ondansetron [Zofran Odt 4 mg Tablet] 1 - 2 tab PO Q4H PRN #15 tab.rapdis PRN Reason: For Nausea/Vomiting Forms: Return to Work Referrals: AYE BOYD DO [Primary Care Provider] - Follow up as needed
[2018-04-26 16:46] VITALS: BP 115/89
== END 2018-04-26 16:47 | disposition home or self-care (01) ==
LOC: ER 10:03
DX: R10.84 Generalized abdominal pain (principal); R11.0 Nausea; R42 Dizziness and giddiness; R10.13 Epigastric pain; Z98.890 Other specified postprocedural states; J45.909 Unspecified asthma, uncomplicated
CPT/HCPCS: 96376; 99284; 96361; 96374; 96375; 36415; 84702; 83690; 85025; 80053; 81001; 74177; J1200; J2270; J2405; J7030; A9270

== ENCOUNTER 2018-05-06 06:01 | Emergency (ER) | payer MEDICARE, MEDICAID ==
--- NOTE | 2018-05-06 06:52 | EKG REPORT ---
SEVERITY:- NORMAL ECG - SINUS RHYTHM : Confirmed by: Kamron Stroud 06-May-2018 06:51:58
--- NOTE | 2018-05-06 07:09 | ER Document Report ---
ED General - General Chief Complaint: Palpitations Stated Complaint: HEART PALPITATIONS Time Seen by Provider: 05/06/18 06:37 TRAVEL OUTSIDE OF THE [place] IN LAST 30 DAYS: No - HPI Patient complains to provider of: Palpitations Notes: Patient coming in for evaluation of palpitations. Patient states ongoing for the last 4 days. Patient states noncompliance with her thyroid medication. Patient states was nauseous to 3 days prior to arrival however no nausea at this time. Patient denies any fevers chills or diarrhea. Patient does have past medical history of cerebral palsy did recently undergo a colonoscopy according to her [facility] review. Otherwise patient is resting comfortably. Patient states palpitations are intermittent no dizziness no passing out no syncope ass ociated with the palpitations. Other than noncompliance with her medication regiment patient states no new medications patient states no drug abuse patient otherwise resting comfortably upon my evaluation. A brief review of the patient's past medical records available in [facility] was performed - Related Data Allergies/Adverse Reactions: hydromorphone HCl [From Dilaudid] Allergy (Verified 04/11/18 13:19) ketorolac tromethamine [From Toradol] Allergy (Verified 04/11/18 13:19) promethazine HCl [From Phenergan] Allergy (Verified 04/11/18 13:19) Past Medical History - Social History Smoking Status: Unknown if Ever Smoked Family History: Arthritis, CAD, DM, Hypertension, Malignancy, Thyroid Disfunction, Other - Uncle of an aneurysm - Past Medical History Cardiac Medical History: Denies: Hx Coronary Artery Disease, Hx Heart Attack, Hx Hypertension Pulmonary Medical History: Reports: Hx Asthma, Hx Bronchitis, Hx Pneumonia Denies: Hx COPD Neurological Medical History: Reports: Hx Migraine. Denies: Hx Cerebrovascular Accident, Hx Seizures Endocrine Medical History: Reports: Hx Hypothyroidism Renal/ Medical History: Reports: Hx Ovarian Cysts. Denies: Hx Peritoneal Dialysis GI Medical History: Reports: Hx Irritable Bowel Musculoskeletal Medical History: Reports Hx Arthritis, Reports Hx Muscle Spasm, Reports Hx Musculoskeletal Deformity - Left leg 1 inch shorter than right Past Surgical History: Reports: Hx Abdominal Surgery, Hx Adenoidectomy, Hx Cholecystectomy, Hx Gynecologic Surgery - ovarian cyst, Hx Orthopedic Surgery, Hx Tonsillectomy. Denies: Hx Hysterectomy - Immunizations Hx Diphtheria, Pertussis, Tetanus Vaccination: Yes Review of Systems - Review of Systems Constitutional: No symptoms reported EENT: No symptoms reported Cardiovascular: Palpitations Respiratory: No symptoms reported Gastrointestinal: No symptoms reported Genitourinary: No symptoms reported Female Genitourinary: No symptoms reported Musculoskeletal: No symptoms reported Skin: No symptoms reported Hematologic/Lymphatic: No symptoms reported Neurological/Psychological: No symptoms reported -: Yes All other systems reviewed and negative Physical Exam - Vital signs Vitals: Temp Pulse Resp BP Pulse Ox 98.5 F 79 14 115/85 100 05/06/18 06:16 05/06/18 06:16 05/06/18 06:16 05/06/18 06:16 05/06/18 06:16 Interpretation: Normal - General General appearance: Appears well, Alert - HEENT Head: Normocephalic, Atraumatic Eyes: Normal Pupils: PERRL - Respiratory Respiratory status: No respiratory distress Chest status: Nontender Breath sounds: Normal Chest palpation: Normal - Cardiovascular Rhythm: Regular Heart sounds: Normal auscultation Murmur: No - Abdominal Inspection: Normal Distension: No distension Bowel sounds: Normal Tenderness: Nontender Organomegaly: No organomegaly - Back Back: Normal, Nontender - Extremities General upper extremity: Normal inspection, Nontender, Normal color, Normal ROM, Normal temperature General lower extremity: Normal inspection, Nontender, Normal color, Normal ROM, Normal temperature, Normal weight bearing. No: Drew's sign - Neurological Neuro grossly intact: Yes Cognition: Normal Orientation: AAOx4 Maria De Jesus Coma Scale Eye Opening: Spontaneous Maria De Jesus Coma Scale Verbal: Oriented Maria De Jesus Coma Scale Motor: Obeys Commands [place] Coma Scale Total: 15 Speech: Normal Motor strength normal: LUE, RUE, LLE, RLE Sensory: Normal - Psychological Associated symptoms: Normal affect, Normal mood - Skin Skin Temperature: Warm Skin Moisture: Dry Skin Color: Normal Course - Re-evaluation Re-evalutation: 05/06/18 15:50 The patient has atypical chest pain as the patient's chest pain is not suggestive of pulmonary embolus, cardiac ischemia, aortic dissection, or other serious etiology. Given the extremely low risk of these diagnoses further testing and evaluation for these possibilities does not appear to be indicated at this time. The patient has been instructed to return if the symptoms worsen or change in any way. - Vital Signs Vital signs: Temp Pulse Resp BP Pulse Ox 98.5 F 79 19 111/81 100 05/06/18 06:16 05/06/18 06:16 05/06/18 09:18 05/06/18 09:18 05/06/18 09:18 - Laboratory Result Diagrams: 05/06/18 06:55 05/06/18 06:55 Laboratory results interpreted by me: 05/06/18 05/06/18 06:55 06:55 Creatine Kinase 312 H Urine Protein 30 H Urine Ascorbic Acid 40 H - EKG Interpretation by Me Additional EKG results interpreted by me: 05/06/18 07:10 Patient is EKG shows a rate of 82 MI 128 QRS duration of 94 QT/QTc 376 439. EKG shows normal sinus rhythm with no T wave inversions no ST segment depressions or elevations Discharge - Discharge Clinical Impression: Palpitation Condition: Good Disposition: HOME, SELF-CARE Instructions: Palpitations (Irregular or Rapid Heartrate) ([facility]) Additional Instructions: Your evaluation today does not show any critical pathology for your palpitations there is some signs of slight dehydration please make sure you drink plenty of fluids to stay well-hydrated return to ER symptoms worsen follow-up with your primary care physician Referrals: AYE BOYD DO [Primary Care Provider] - Follow up in 3-5 days
[2018-05-06 07:16] LABS: ABSOLUTE EOSINOPHILS # (AUTO) 0.1 10^3/uL (0.0-0.6); ABSOLUTE LYMPHOCYTES (AUTO) 3.1 10^3/uL (0.5-4.7); ABSOLUTE MONOCYTES (AUTO) 0.5 10^3/uL (0.1-1.4); ABSOLUTE NEUT (AUTO) 3.6 10^3/uL (1.7-8.2); BASOPHILS % (AUTO) 0.5 % (0-2); EOSINOPHILS % (AUTO) 1.3 % (0-6); HEMATOCRIT 38.7 % (36.0-47.0); HEMOGLOBIN 13.4 g/dL (12.0-15.5); LYMPHOCYTES % (AUTO) 42.1 % (13-45); MEAN CORPUSCULAR HEMOGLOBIN 32.2 pg (27.0-33.4); MEAN CORPUSCULAR HGB CONC 34.5 g/dL (32.0-36.0); MEAN CORPUSCULAR VOLUME 93 fl (80-97); MONOCYTES % (AUTO) 7.1 % (3-13); PLATELET COUNT 235 10^3/uL (150-450); RED BLOOD COUNT 4.15 10^6/uL (3.72-5.28); RED CELL DISTRIBUTION WIDTH 12.5 % (11.5-14.0); TOTAL CELLS COUNTED % (AUTO) 100 %; WHITE BLOOD COUNT 7.4 10^3/uL (4.0-10.5)
[2018-05-06 07:21] LABS: INTERNATIONAL RATION (INR) 0.97; PROTHROMBIN TIME 13.3 SEC (11.4-15.4)
--- NOTE | 2018-05-06 07:31 | RADIOLOGY REPORT (SQ) ---
EXAM DESCRIPTION: XR CHEST 1 VIEW COMPLETED DATE/TME: 05/06/2018 06:37 CLINICAL HISTORY: sob COMPARISON: 06/14/2016 FINDINGS: Single frontal view of the chest. The cardiomediastinal silhouette has normal size and contour. No consolidation, pneumothorax, or pleural effusion. No acute osseous abnormality. Healed right clavicular fracture. Leads overlie the chest. Upper abdominal soft tissues are unremarkable. IMPRESSION: 1. No acute pulmonary process identified.
[2018-05-06 07:39] LABS: ALANINE AMINOTRANSFERASE 28 U/L (9-52); ALBUMIN 4.5 g/dL (3.5-5.0); ALKALINE PHOSPHATASE 81 U/L (38-126); ANION GAP 10 (5-19); ASPARTATE AMINO TRANSFERASE 33 U/L (14-36); BILIRUBIN,DIRECT 0.2 mg/dL (0.0-0.4); BILIRUBIN,TOTAL 0.7 mg/dL (0.2-1.3); BLOOD UREA NITROGEN 16 mg/dL (7-20); CALCIUM 9.3 mg/dL (8.4-10.2); CARBON DIOXIDE 27 mmol/L (22-30); CHLORIDE 104 mmol/L (98-107); CREATINE KINASE 312 U/L (30-135); GLUCOSE 84 mg/dL (75-110); POTASSIUM 4.3 mmol/L (3.6-5.0); SODIUM 140.5 mmol/L (137-145); TOTAL PROTEIN 7.9 g/dL (6.3-8.2)
[2018-05-06] MEDS ORDERED: ONDANSETRON HCL INJ/PF 4 MG/2 ML SDV IV ONE (07:43)
[2018-05-06 07:44] LABS: APPEARANCE,URINE CLOUDY; BILIRUBIN,URINE NEGATIVE (NEGATIVE); COLOR,URINE YELLOW; GLUCOSE, URINE NEGATIVE (NEGATIVE); KETONES,URINE NEGATIVE (NEGATIVE); LEUKOCYTE ESTERASE,URINE NEGATIVE (NEGATIVE); NITRITE,URINE NEGATIVE (NEGATIVE); PROTEIN,URINE 30 mg/dL (NEGATIVE); URINE SPECIFIC GRAVITY 1.031; UROBILINOGEN,URINE NEGATIVE mg/dL (<2.0)
[2018-05-06 07:51] LABS: CREATINE KINASE MB 1.37 ng/mL (<4.55)
[2018-05-06 07:54] LABS: TROPONIN I < 0.012 ng/mL
[2018-05-06 07:56] LABS: FREE T4 (FREE THYROXINE) 1.03 ng/dL (0.78-2.19)
[2018-05-06 08:10] LABS: THYROID STIMULATING HORMONE 1.63 uIU/mL (0.47-4.68)
[2018-05-06 08:11] LABS: URINE AMPHETAMINES SCREEN NEGATIVE; URINE BARBITURATES SCREEN NEGATIVE; URINE BENZODIAZEPINES SCREEN NEGATIVE; URINE COCAINE SCREEN NEGATIVE; URINE MARIJUANA (THC) SCREEN NEGATIVE; URINE METHADONE SCREEN NEGATIVE; URINE PHENCYCLIDINE SCREEN NEGATIVE
[2018-05-06 09:23] VITALS: BP 111/81
== END 2018-05-06 09:23 | disposition home or self-care (01) ==
LOC: ER 06:01
DX: R00.2 Palpitations (principal); R07.89 Other chest pain; G80.9 Cerebral palsy, unspecified; J45.909 Unspecified asthma, uncomplicated; E03.9 Hypothyroidism, unspecified; Z91.14 Patient's other noncompliance with medication regimen; Z88.5 Allergy status to narcotic agent; Z88.8 Allergy status to other drugs, medicaments and biological substances
CPT/HCPCS: 93005; 99285; 96374; 36415; 84439; 82553; 82550; 83735; 84443; 84703; 85025; 85610; 80053; 81001; 84484; 80307; 71045; 93010; J2405

== ENCOUNTER 2018-05-27 18:07 | Emergency (ER) | payer MEDICARE, MEDICAID ==
[2018-05-27 19:18] LABS: ABSOLUTE BASOPHILS # (AUTO) 0.1 10^3/uL (0.0-0.2); ABSOLUTE EOSINOPHILS # (AUTO) 0.2 10^3/uL (0.0-0.6); ABSOLUTE LYMPHOCYTES (AUTO) 3.6 10^3/uL (0.5-4.7); ABSOLUTE MONOCYTES (AUTO) 0.5 10^3/uL (0.1-1.4); ABSOLUTE NEUT (AUTO) 4.1 10^3/uL (1.7-8.2); BASOPHILS % (AUTO) 0.7 % (0-2); EOSINOPHILS % (AUTO) 2.5 % (0-6); HEMATOCRIT 39.5 % (36.0-47.0); HEMOGLOBIN 13.6 g/dL (12.0-15.5); LYMPHOCYTES % (AUTO) 42.6 % (13-45); MEAN CORPUSCULAR HEMOGLOBIN 32.1 pg (27.0-33.4); MEAN CORPUSCULAR HGB CONC 34.5 g/dL (32.0-36.0); MEAN CORPUSCULAR VOLUME 93 fl (80-97); MONOCYTES % (AUTO) 6.3 % (3-13); PLATELET COUNT 254 10^3/uL (150-450); RED BLOOD COUNT 4.24 10^6/uL (3.72-5.28); RED CELL DISTRIBUTION WIDTH 12.5 % (11.5-14.0); SEGMENTED NEUTROPHILS % (AUTO) 47.9 % (42-78); TOTAL CELLS COUNTED % (AUTO) 100 %; WHITE BLOOD COUNT 8.6 10^3/uL (4.0-10.5)
[2018-05-27 19:30] LABS: ALANINE AMINOTRANSFERASE 49 U/L (9-52); ALBUMIN 4.7 g/dL (3.5-5.0); ALKALINE PHOSPHATASE 89 U/L (38-126); ANION GAP 9 (5-19); ASPARTATE AMINO TRANSFERASE 46 U/L (14-36); BILIRUBIN,DIRECT 0.1 mg/dL (0.0-0.4); BILIRUBIN,TOTAL 0.4 mg/dL (0.2-1.3); BLOOD UREA NITROGEN 13 mg/dL (7-20); CALCIUM 9.6 mg/dL (8.4-10.2); CARBON DIOXIDE 29 mmol/L (22-30); CHLORIDE 101 mmol/L (98-107); GLUCOSE 90 mg/dL (75-110); POTASSIUM 4.1 mmol/L (3.6-5.0); SODIUM 138.8 mmol/L (137-145); TOTAL PROTEIN 7.7 g/dL (6.3-8.2)
[2018-05-27] MEDS ORDERED: DEXAMETHASONE SOD PHOS INJ 10 MG/1 ML VIAL IV ONE (19:39)
[2018-05-27] MEDS ORDERED: RINGERS SOLUTION,LACTATED 1,000 ML IV ONE (19:39)
[2018-05-27] MEDS ORDERED: DIPHENHYDRAMINE HCL 50 MG/ML VIAL IV ONE (19:57)
--- NOTE | 2018-05-27 20:51 | RADIOLOGY REPORT (SQ) ---
EXAM DESCRIPTION: CT NECK CHEST WITH IV CONTRAST COMPLETED DATE/TME: 05/27/2018 18:55 CLINICAL HISTORY: 32 years, Female, difficulty swallowing s/p thyroidectomy COMPARISON: Prior CT neck 11/03/2017. TECHNIQUE: 241 Images stored on PACS. All CT scanners at this facility use dose modulation, iterative reconstruction, and/or weight based dosing when appropriate to reduce radiation dose to as low as reasonably achievable (ALARA). [facility]: Dose Right [facility]: CareDose [facility]: Dose Right [facility]: Teradose 4D [facility]: [employer] LIMITATIONS: None. FINDINGS: Limited evaluation of brain parenchyma is unremarkable. The globes are intact bilaterally. The parotid and submandibular glands are unremarkable. Per history, the patient is status post recent thyroidectomy. Soft tissue gas and swelling/edema in the thyroid fossa is likely postoperative in nature. There is also subcutaneous edema and swelling with minor edema involving the sternocleidomastoid musculature, anteriorly. Areas of poorly defined low density in the thyroid fossa likely reflects postoperative inflammation with developing abscess felt much less likely. Correlate with surgical findings. Note is made of a 3.2 mm nodule in the right upper lobe/apex. This is unchanged. Lung apices are otherwise unremarkable. The epiglottis and aryepiglottic folds are normal. The airway is widely patent. No enhancing abnormality. IMPRESSION: Patient is status post recent thyroidectomy. Therefore, soft tissue gas as well as inflammatory changes and edema in the thyroid fossa are likely iatrogenic/postoperative in nature. A developing infectious process is felt less likely however continued follow-up recommended. The airway is widely patent. Stable 3.2 mm nodule in the right upper lobe, likely postinflammatory. TECHNICAL DOCUMENTATION: Quality ID # [id number]: Final reports with documentation of one or more dose reduction techniques (e.g., Automated exposure control, adjustment of the mA and/or kV according to patient size, use of iterative reconstruction technique) copyright 2011 [employer]- All Rights Reserved
--- NOTE | 2018-05-27 21:28 | ER Document Report ---
ED General - General Chief Complaint: Post Surgical Pain Stated Complaint: THROAT SWELLING, PAIN Time Seen by Provider: 05/27/18 18:44 Primary Care Provider: AYE BOYD DO [Primary Care Provider] - Follow up tomorrow Notes: Patient is a 32-year-old female with a history of cerebral palsy, had a thyroidectomy on 05/25 who presents with complaints of increasing throat pain and swelling. Patient states that it is difficult to swallow but denies any difficulty breathing. She notes the pain in her neck as being a dull, throbbing, constant discomfort. She has pain medications at home that she states do help somewhat. Nothing has worsened her symptoms since onset. She has not contacted her surgeon regarding her concerns. Denies fever. No hemoptysis or hematemesis TRAVEL OUTSIDE OF THE [place] IN LAST 30 DAYS: No - Related Data Allergies/Adverse Reactions: hydromorphone HCl [From Dilaudid] Allergy (Verified 05/27/18 18:49) ketorolac tromethamine [From Toradol] Allergy (Verified 05/27/18 18:49) promethazine HCl [From Phenergan] Allergy (Verified 05/27/18 18:49) Past Medical History - General Information source: Patient - Social History Smoking Status: Never Smoker Frequency of alcohol use: None Drug Abuse: None Lives with: Family Family History: Arthritis, CAD, DM, Hypertension, Malignancy, Thyroid Disfunction, Other - Uncle of an aneurysm Patient has suicidal ideation: No Patient has homicidal ideation: No - Past Medical History Cardiac Medical History: Denies: Hx Coronary Artery Disease, Hx Heart Attack, Hx Hypertension Pulmonary Medical History: Reports: Hx Asthma, Hx Bronchitis, Hx Pneumonia Denies: Hx COPD Neurological Medical History: Reports: Hx Migraine. Denies: Hx Cerebrovascular Accident, Hx Seizures Endocrine Medical History: Reports: Hx Hypothyroidism Renal/ Medical History: Reports: Hx Ovarian Cysts. Denies: Hx Peritoneal Dialysis GI Medical History: Reports: Hx Irritable Bowel Musculoskeletal Medical History: Reports Hx Arthritis, Reports Hx Muscle Spasm, Reports Hx Musculoskeletal Deformity - Left leg 1 inch shorter than right Past Surgical History: Reports: Hx Abdominal Surgery, Hx Adenoidectomy, Hx Cholecystectomy, Hx Gynecologic Surgery - ovarian cyst, Hx Orthopedic Surgery, Hx Thyroid Surgery - 05/24/18, Hx Tonsillectomy. Denies: Hx Hysterectomy - Immunizations Hx Diphtheria, Pertussis, Tetanus Vaccination: Yes Review of Systems - Review of Systems Notes: Constitutional: Negative for fever. HENT: Positive for neck pain Eyes: Negative for visual changes. Cardiovascular: Negative for chest pain. Respiratory: Negative for shortness of breath. Gastrointestinal: Negative for abdominal pain, vomiting or diarrhea. Genitourinary: Negative for dysuria. Musculoskeletal: Negative for back pain. Skin: Negative for rash. Neurological: Negative for headaches, weakness or numbness. 10 point ROS negative except as marked above and in HPI. Physical Exam - Vital signs Vitals: Temp Pulse Resp BP Pulse Ox 98.3 F 91 14 126/92 H 93 05/27/18 18:21 05/27/18 18:21 05/27/18 18:21 05/27/18 18:21 05/27/18 18:21 Interpretation: Normal Notes: PHYSICAL EXAMINATION: GENERAL: Well-appearing, well-nourished and in no acute distress. HEAD: Atraumatic, normocephalic. EYES: Pupils equal round and reactive to light, extraocular movements intact, sclera anicteric, conjunctiva are normal. ENT: nares patent, oropharynx clear without exudates. Moist mucous membranes. NECK: Normal range of motion, mild swelling to the anterior inferior neck with a well-appearing surgical incision. No stridor. LUNGS: Breath sounds clear to auscultation bilaterally and equal. No wheezes rales or rhonchi. HEART: Regular rate and rhythm without murmurs ABDOMEN: Soft, nontender, normoactive bowel sounds. No guarding, no rebound. No masses appreciated. EXTREMITIES: Normal range of motion, no pitting or edema. No cyanosis. NEUROLOGICAL: No focal neurological deficits. Moves all extremities spontaneously and on command. PSYCH: Normal mood, normal affect. SKIN: Warm, Dry, normal turgor, no rashes or lesions noted. Course - Re-evaluation Re-evalutation: 05/27/18 21:27 Patient presents with complaints of increased throat swelling, pain with swallowing, difficulty swallowing since having a thyroidectomy on the . On exam patient is able to speak without difficulty at her baseline. No stridor or wheezing. Able to swallow water at the bedside. CT soft tissue of the neck does not show any compromise of the airway although does show diffuse postsurgical changes that appear as expected in the postoperative setting without any discernible fluid collection worrisome for hematoma or abscess. Her laboratories are otherwise unremarkable. At this time will discharge with return precautions and follow-up recommendations. Verbal discharge instructions given a the bedside and opportunity for questions given. Medication warnings reviewed. Patient is in agreement with this plan and has verbalized understanding of return precautions and the need for surgical follow-up follow- up in the next 24-72 hours. - Vital Signs Vital signs: Temp Pulse Resp BP Pulse Ox 97.5 F 83 14 108/57 L 99 05/27/18 21:35 05/27/18 21:35 05/27/18 21:35 05/27/18 21:35 05/27/18 21:35 - Laboratory Result Diagrams: 05/27/18 19:04 05/27/18 19:04 Laboratory results interpreted by me: 05/27/18 19:04 AST 46 H - Diagnostic Test Radiology reviewed: Reports reviewed Discharge - Discharge Clinical Impression: Throat swelling, Postoperative pain, Dysphasia Condition: Good Disposition: HOME, SELF-CARE Additional Instructions: CT scan of your neck does not show any compromise of your airway, but does show significant inflammation from your recent surgery which is expected. Your labs are otherwise unremarkable. You have been given a dose of steroids to help reduce the inflammation in your neck and hopefully help with your symptoms. Return if you have worsening of your pain, become unable to swallow, have difficulty breathing, or have any other symptoms that are worrisome to you. Referrals: AYE BOYD DO [Primary Care Provider] - Follow up tomorrow
[2018-05-27 21:38] VITALS: BP 108/57
== END 2018-05-27 21:49 | disposition home or self-care (01) ==
LOC: ER 18:07
DX: G89.18 Other acute postprocedural pain (principal); R22.1 Localized swelling, mass and lump, neck; R47.02 Dysphasia; Z90.49 Acquired absence of other specified parts of digestive tract
CPT/HCPCS: 99284; 96361; 96374; 96375; 36415; 85025; 80053; 70491; J1200; J7120; J1100

== ENCOUNTER 2018-06-03 15:15 | Emergency (ER) | payer MEDICARE, MEDICAID ==
--- NOTE | 2018-06-03 15:38 | ER Document Report ---
ED ENT - General Chief Complaint: Breathing Difficulty Stated Complaint: DIFFICULTY BREATHING Time Seen by Provider: 06/03/18 15:33 Primary Care Provider: AYE BOYD DO [Primary Care Provider] - Follow up as needed Mode of Arrival: Ambulatory Information source: Patient TRAVEL OUTSIDE OF THE [place] IN LAST 30 DAYS: No - HPI Patient complains to provider of: Throat problem Onset: This afternoon Onset/Duration: Gradual Severity: Moderate Location of pain: Throat Associated symptoms: Difficulty swallowing Similar symptoms previously: Yes Recently seen / treated by doctor: Yes Notes: Patient is a 32-year-old female with a history of cerebral palsy had a thyroidectomy on 05/25/2018, she presents today complaining of the sensation of her throat closing with difficulty breathing and swallowing that started earlier today, it is noted she was seen in this department on 05/27/2018 with similar symptoms and scan and discharged home feeling better - Related Data Allergies/Adverse Reactions: hydromorphone HCl [From Dilaudid] Allergy (Verified 06/03/18 15:55) ketorolac tromethamine [From Toradol] Allergy (Verified 06/03/18 15:55) promethazine HCl [From Phenergan] Allergy (Verified 06/03/18 15:55) Past Medical History - General Information source: Patient - Social History Smoking Status: Unknown if Ever Smoked Family History: Arthritis, CAD, DM, Hypertension, Malignancy, Thyroid Disfunction, Other - Uncle of an aneurysm - Past Medical History Cardiac Medical History: Denies: Hx Coronary Artery Disease, Hx Heart Attack, Hx Hypertension Pulmonary Medical History: Reports: Hx Asthma, Hx Bronchitis, Hx Pneumonia Denies: Hx COPD Neurological Medical History: Reports: Hx Migraine. Denies: Hx Cerebrovascular Accident, Hx Seizures Endocrine Medical History: Reports: Hx Hypothyroidism Renal/ Medical History: Reports: Hx Ovarian Cysts. Denies: Hx Peritoneal Dialysis GI Medical History: Reports: Hx Irritable Bowel Musculoskeletal Medical History: Reports Hx Arthritis, Reports Hx Muscle Spasm, Reports Hx Musculoskeletal Deformity - Left leg 1 inch shorter than right Past Surgical History: Reports: Hx Abdominal Surgery, Hx Adenoidectomy, Hx Cholecystectomy, Hx Gynecologic Surgery - ovarian cyst, Hx Orthopedic Surgery, Hx Thyroid Surgery - 05/24/18, Hx Tonsillectomy. Denies: Hx Hysterectomy - Immunizations Hx Diphtheria, Pertussis, Tetanus Vaccination: Yes Review of Systems - Review of Systems Constitutional: No symptoms reported EENT: See HPI Cardiovascular: No symptoms reported Respiratory: No symptoms reported Gastrointestinal: No symptoms reported Genitourinary: No symptoms reported Female Genitourinary: No symptoms reported Musculoskeletal: No symptoms reported Skin: No symptoms reported Hematologic/Lymphatic: No symptoms reported Neurological/Psychological: No symptoms reported -: Yes All other systems reviewed and negative Physical Exam - Vital signs Vitals: Temp Pulse Resp BP Pulse Ox 98.0 F 37 L 26 H 124/71 79 L 06/03/18 15:24 06/03/18 15:24 06/03/18 15:24 06/03/18 15:24 06/03/18 15:24 Interpretation: Normal - General General appearance: Appears well, Alert - HEENT Head: Normocephalic, Atraumatic Eyes: Normal Pupils: PERRL Neck: Other - Well-appearing surgical scar over the area of the thyroid - Respiratory Respiratory status: No respiratory distress Chest status: Nontender Breath sounds: Normal Chest palpation: Normal - Cardiovascular Rhythm: Regular Heart sounds: Normal auscultation Murmur: No - Abdominal Inspection: Normal Distension: No distension Bowel sounds: Normal Tenderness: Nontender Organomegaly: No organomegaly - Back Back: Normal, Nontender - Extremities General upper extremity: Normal inspection, Nontender, Normal color, Normal ROM, Normal temperature General lower extremity: Normal inspection, Nontender, Normal color, Normal ROM, Normal temperature, Normal weight bearing. No: Drew's sign - Neurological Neuro grossly intact: Yes Cognition: Normal Orientation: AAOx4 [place] Coma Scale Eye Opening: Spontaneous [place] Coma Scale Verbal: Oriented [place] Coma Scale Motor: Obeys Commands Maria De Jesus Coma Scale Total: 15 Speech: Normal Motor strength normal: LUE, RUE, LLE, RLE Sensory: Normal - Psychological Associated symptoms: Normal affect, Normal mood - Skin Skin Temperature: Warm Skin Moisture: Dry Skin Color: Normal Course - Re-evaluation Re-evalutation: 06/03/18 17:09 Patient reports feeling much better, she is now speaking easily, airway remains patent, lungs are clear, imaging findings discussed at bedside which are unremarkable, we will p.o. challenge patient as long as she has no difficulty swallowing plan to discharge with a prescription for prednisone and instructions for follow-up 06/03/18 17:45 Patient able to swallow juice and crackers without any difficulty, will be discharged with instructions for follow-up, patient acknowledges understanding and agreement with this plan - Vital Signs Vital signs: Temp Pulse Resp BP Pulse Ox 98.0 F 37 L 15 114/77 100 06/03/18 15:24 06/03/18 15:24 06/03/18 17:01 06/03/18 17:01 06/03/18 17:01 - Diagnostic Test Radiology reviewed: Image reviewed, Reports reviewed Critical Care Note - Critical Care Note Total time excluding time spent on procedures (mins): 30 Comments: Patient arrived tachypneic, hypoxic and complaining of difficulty breathing with sensation of throat closing, history of angioedema as well as recent thyroid to make, requiring close monitoring Discharge - Discharge Clinical Impression: Throat swelling, Dysphasia Condition: Stable Disposition: HOME, SELF-CARE Instructions: Dysphagia ([facility]) Additional Instructions: Follow up with your primary care provider in one to 2 days. Return to the emergency room immediately if symptoms worsen or any additional concerns. Prescriptions: Prednisone [Deltasone] 40 mg PO DAILY #10 tablet Referrals: AYE BOYD DO [Primary Care Provider] - Follow up as needed
[2018-06-03] MEDS ORDERED: DEXAMETHASONE SOD PHOS INJ 10 MG/1 ML VIAL IV ONE (15:50)
[2018-06-03] MEDS ORDERED: DIPHENHYDRAMINE HCL 50 MG/ML VIAL IV ONE (15:53)
--- NOTE | 2018-06-03 15:58 | RADIOLOGY REPORT (SQ) ---
EXAM DESCRIPTION: SOFT TISSUE NECK COMPLETED DATE/TIME: 06/03/2018 3:48 pm REASON FOR STUDY: throat pain, recent thyroidectomy COMPARISON: 10/16/2015 NUMBER OF VIEWS: Two views. TECHNIQUE: AP and lateral radiographic image of the soft tissues of the neck. LIMITATIONS: None. FINDINGS: EPIGLOTTIS: Normal. Contour normal. Aryepiglottic folds normal. PREVERTEBRAL SOFT TISSUES: Clips overlying thyroid cartilage. Swelling anterior to the trachea. SUBGLOTTIC AREA: Normal. No narrowing. RETROPHARYNGEAL SPACE: Normal. No soft tissue masses. BONES: No significant findings. LUNG APICES: Normal. OTHER: No radiopaque foreign body. No other significant finding. IMPRESSION: Expected postsurgical changes. Otherwise normal. TECHNICAL DOCUMENTATION: JOB ID: [id number] [employer]- All Rights Reserved Reading location - IP/workstation name: [email or web address]
[2018-06-03 17:16] VITALS: BP 114/77
== END 2018-06-03 17:49 | disposition home or self-care (01) ==
LOC: ER 15:15
DX: R22.1 Localized swelling, mass and lump, neck (principal); R47.02 Dysphasia; R06.02 Shortness of breath; R13.10 Dysphagia, unspecified; J45.909 Unspecified asthma, uncomplicated
CPT/HCPCS: 99284; 96374; 96375; 70360; J1200; J1100

== ENCOUNTER → 2018-07-05 | Outpatient (CLI) | payer MEDICARE, MEDICAID ==
--- NOTE | 2018-07-05 14:41 | RADIOLOGY REPORT (SQ) ---
EXAM DESCRIPTION: WRIST RIGHT 3 VIEWS COMPLETED DATE/TIME: 07/05/2018 2:19 pm REASON FOR STUDY: R22.31, LUMP ON RIGHT WRIST R22.31 LOCALIZED SWELLING, MASS AND LUMP, RIGHT UPPER LIMB Fell in January with pain and swelling radial aspect right wrist COMPARISON: None. NUMBER OF VIEWS: Three views. TECHNIQUE: AP, lateral, and oblique radiographic images acquired of the right wrist. LIMITATIONS: None. FINDINGS: MINERALIZATION: Normal. BONES: No acute fracture or dislocation. No worrisome bone lesions. Normal alignment. SOFT TISSUES: No soft tissue swelling. No foreign body. OTHER: No other significant finding. IMPRESSION: NEGATIVE STUDY OF THE RIGHT WRIST. No calcified/ossified soft tissue nodule or bony abn ormality TECHNICAL DOCUMENTATION: JOB ID: [id number] [employer]- All Rights Reserved Reading location - IP/workstation name: [email or web address]
== END ==
LOC: OD 14:04
PROVIDERS: ATTEND Family Medicine
DX: R22.31 Localized swelling, mass and lump, right upper limb (principal)

== ENCOUNTER → 2018-11-01 | Outpatient (CLI) | payer MEDICARE, MEDICAID | LOC: OD 15:43 | PROVIDERS: ATTEND Otolaryngology | DX: J30.9 Allergic rhinitis, unspecified (principal) | CPT/HCPCS: 36415; 82785; 86003 ==

== ENCOUNTER 2018-11-04 23:11 | Emergency (ER) | payer MEDICARE, MEDICAID ==
[2018-11-04] MEDS ORDERED: ACETAMINOPHEN 325 MG TABLET PO ONE (23:14)
[2018-11-04 23:21] VITALS: BP 121/90
--- NOTE | 2018-11-04 23:46 | RADIOLOGY REPORT (SQ) ---
EXAM DESCRIPTION: XR ANKLE 2 VIEWS COMPLETED DATE/TME: 11/04/2018 00:00 CLINICAL HISTORY: 33 years, Female, injury COMPARISON: None. NUMBER OF VIEWS: Two TECHNIQUE: Frontal and lateral radiographs of the right ankle were obtained. LIMITATIONS: None. FINDINGS: Visualized osseous structures are normal in appearance. Joint spaces are well-maintained. No acute fracture or dislocation is evident. IMPRESSION: No acute osseous anomaly. copyright 2010 [employer]- All Rights Reserved
--- NOTE | 2018-11-05 03:39 | ER Document Report ---
ED General - General Chief Complaint: Ankle Injury Stated Complaint: ANKLE INJURY Time Seen by Provider: 11/05/18 02:41 Primary Care Provider: DAVID BOWDEN MD [Primary Care Provider] - Follow up as needed Notes: Patient is a 33-year old female with a past medical history of cerebral palsy who presents with complaints of a right ankle injury that she sustained 3 days ago. The patient states that a cart hit her ankle while she was at work. Since that time she has had a dull, throbbing, constant, severe pain to the area. Worsened by walking or moving the ankle. Has not seen her primary care physician regarding today's concerns. Denies a history of similar injuries in the past. She is tried ibuprofen with no significant relief. Has likewise been icing the area and states this does seem to help reduce the swelling. TRAVEL OUTSIDE OF THE [place] IN LAST 30 DAYS: No - Related Data Allergies/Adverse Reactions: hydromorphone HCl [From Dilaudid] Allergy (Verified 06/03/18 15:55) ketorolac tromethamine [From Toradol] Allergy (Verified 06/03/18 15:55) promethazine HCl [From Phenergan] Allergy (Verified 06/03/18 15:55) Past Medical History - General Information source: Patient - Social History Smoking Status: Never Smoker Frequency of alcohol use: None Drug Abuse: None Lives with: Family Family History: Arthritis, CAD, DM, Hypertension, Malignancy, Thyroid Disfunction, Other - Uncle of an aneurysm Patient has suicidal ideation: No Patient has homicidal ideation: No - Past Medical History Cardiac Medical History: Denies: Hx Coronary Artery Disease, Hx Heart Attack, Hx Hypertension Pulmonary Medical History: Reports: Hx Asthma, Hx Bronchitis, Hx Pneumonia Denies: Hx COPD Neurological Medical History: Reports: Hx Migraine. Denies: Hx Cerebrovascular Accident, Hx Seizures Endocrine Medical History: Reports: Hx Hypothyroidism Renal/ Medical History: Reports: Hx Ovarian Cysts. Denies: Hx Peritoneal Dialysis GI Medical History: Reports: Hx Irritable Bowel Musculoskeletal Medical History: Reports Hx Arthritis, Reports Hx Muscle Spasm, Reports Hx Musculoskeletal Deformity - Left leg 1 inch shorter than right Past Surgical History: Reports: Hx Abdominal Surgery, Hx Adenoidectomy, Hx Cholecystectomy, Hx Gynecologic Surgery - ovarian cyst, Hx Orthopedic Surgery, Hx Thyroid Surgery - 05/24/18, Hx Tonsillectomy. Denies: Hx Hysterectomy - Immunizations Hx Diphtheria, Pertussis, Tetanus Vaccination: Yes Review of Systems - Review of Systems Notes: Constitutional: Negative for fever. HENT: Negative for sore throat. Eyes: Negative for visual changes. Cardiovascular: Negative for chest pain. Respiratory: Negative for shortness of breath. Gastrointestinal: Negative for abdominal pain, vomiting or diarrhea. Genitourinary: Negative for dysuria. Musculoskeletal: Positive for right ankle injury Skin: Positive for right ankle bruising Neurological: Negative for headaches, weakness or numbness. 10 point ROS negative except as marked above and in HPI. Physical Exam - Vital signs Vitals: Temp Pulse Resp BP Pulse Ox 98.5 F 104 H 22 H 121/90 H 97 11/04/18 23:17 11/04/18 23:17 11/04/18 23:17 11/04/18 23:17 11/04/18 23:17 Interpretation: Tachycardic Notes: PHYSICAL EXAMINATION: GENERAL: Well-appearing, well-nourished and in no acute distress. HEAD: Atraumatic, normocephalic. EYES: sclera anicteric, conjunctiva are normal. ENT: Moist mucous membranes. NECK: Normal range of motion LUNGS: Normal work of breathing HEART: 2+ DP pulses bilaterally EXTREMITIES: Swelling to the right ankle, full dorsi and plantar flexion, inversion eversion intact NEUROLOGICAL: No focal neurological deficits. Moves all extremities spontaneously and on command. PSYCH: Normal mood, normal affect. SKIN: Warm, Dry, normal turgor, traumatic ecchymosis to the lateral aspect of the right ankle Course - Re-evaluation Re-evalutation: 11/05/18 03:39 No evidence of a septic joint, gout flare, dislocation, or fracture on exam and imaging. Vitals wnl. At this time, I do not see an indication for labs or further imaging. Suspect traumatic muscular skeletal injury. Will discharge with conservative measures, return precautions, and follow-up recommendations. - Vital Signs Vital signs: Temp Pulse Resp BP Pulse Ox 98.5 F 104 H 22 H 121/90 H 97 11/04/18 23:17 11/04/18 23:17 11/04/18 23:17 11/04/18 23:17 11/04/18 23:17 - Diagnostic Test Radiology reviewed: Image reviewed, Reports reviewed Radiology results interpreted by me: 11/05/18 03:39 Right ankle x-ray: No acute fracture or dislocation Discharge - Discharge Clinical Impression: Right ankle injury Qualifiers: Encounter type: initial encounter Qualified Code(s): S99.911A - Unspecified injury of right ankle, initial encounter Traumatic ecchymosis of right ankle Qualifiers: Encounter type: initial encounter Qualified Code(s): S90.01XA - Contusion of right ankle, initial encounter Condition: Good Disposition: HOME, SELF-CARE Additional Instructions: Your x-ray does not show any acute fracture today. You likely have a ligamentous strain. Take Tylenol 1000 mg every 6 hours. Apply the Voltaren gel as prescribed. Continue to apply ice to the area is much your able. Please follow-up with your primary care physician if you do not have improving your symptoms in the next 1-2 weeks. Please return immediately if you develop weakness, numbness, spreading redness from the area, or any other symptoms that are concerning to you. Prescriptions: Diclofenac Sodium [Voltaren] 100 gm TP TID PRN #[id number] gel..gm. PRN Reason: Referrals: DAVID BOWDEN MD [Primary Care Provider] - Follow up as needed
== END 2018-11-05 03:57 | disposition home or self-care (01) ==
LOC: ER 23:11
DX: S99.911A Unspecified injury of right ankle, initial encounter (principal); S90.01XA Contusion of right ankle, initial encounter; W20.8XXA Other cause of strike by thrown, projected or falling object, initial encounter; Y99.0 Civilian activity done for income or pay; Z90.49 Acquired absence of other specified parts of digestive tract
CPT/HCPCS: 99283; 73600; A9270

== ENCOUNTER → 2018-11-22 | Outpatient (CLI) | payer MEDICARE, MEDICAID ==
--- NOTE | 2018-11-22 10:48 | RADIOLOGY REPORT (SQ) ---
EXAM DESCRIPTION: MRI RT UPPER JOINT WITHOUT COMPLETED DATE/TIME: 11/22/2018 10:08 am REASON FOR STUDY: RADIAL STYLOID TENOSYNOVITIS (M65.4) M65.4 RADIAL STYLOID TENOSYNOVITIS DE QUERVA IN COMPARISON: Right wrist films 07/05/2018 TECHNIQUE: Right wrist images acquired and stored on PACS. Multiplanar images include fat sensitive sequences as T1, fluid sensitive sequences as FST2/STIR, cartilage sensitive sequences as FSPD, grad ient echo sequences. LIMITATIONS: None. FINDINGS: BONE MARROW: No alteration of signal to suggest marrow replacement or edema. No occult fra cture. No large osteophytes. CARPAL ALIGNMENT AND ARTICULATION: Normal congruity of sigmoid notch at level of distal RUJ without p ositive or negative ulnar variance. Normal capitolunate angle. No widening of scapholunate articulati on. EFFUSION: None noted. No loose bodies. SCAPHOLUNATE LIGAMENT: Intact without tear. LUNATE-TRIQUETRAL LIGAMENT: Intact without tear. TFC COMPLEX: Radial and ulnar attachments normal. Meniscus intact. Extensor carpi ulnaris tendon norm al without tendinopathy. EXTRINSIC LIGAMENTS AND DISTAL RADIO-ULNAR JOINT: Dorsal and volar distal RUJ intact without subluxat ion of the distal ulna. 1-6 EXTENSOR COMPARTMENTS: Normal. Specifically no tendinopathy of the abductor pollicis longus or ex tensor pollicis brevis to suggest de Quervain's Syndrome. CARPAL TUNNEL AND MEDIAN NERVE: Normal volume and morphology of the carpal tunnel proximally at the l evel of the radiocarpal joint and distally at the hook of the hamate. No thickening or signal alterat ion of the median nerve. OTHER: No fluid is present in the extensor pollicis brevis or abductor pollicis longus tendon sheaths . No fluid in the extensor carpi radialis or extensor pollicis longus tendon sheath. There is some ligamentous laxity at the 1st carpometacarpal joint, with fluid in the 1st CMC joint on coronal image 4 and axial image 9. No bulky bony spurring or ganglion cyst at the 1st carpometacarp al joint. IMPRESSION: No tenosynovitis along the radial styloid region. Ligamentous laxity and fluid in the 1st carpometacarpal joint. TECHNICAL DOCUMENTATION: JOB ID: [id number] [employer]- All Rights Reserved Reading location - IP/workstation name: [email or web address]
== END ==
LOC: RAD 09:11
PROVIDERS: ATTEND Orthopaedic Surgery
DX: M65.4 Radial styloid tenosynovitis [de Quervain] (principal)

== ENCOUNTER → 2019-01-21 | Outpatient (CLI) | payer MEDICARE, MEDICAID | LOC: SP 14:32 | PROVIDERS: ATTEND Specialist | DX: R06.02 Shortness of breath (principal) | CPT/HCPCS: 93306 ==

== ENCOUNTER 2019-01-25 11:16 | Emergency (ER) | payer MEDICARE, MEDICAID ==
[2019-01-25 11:52] VITALS: BP 118/92
[2019-01-25] MEDS ORDERED: DIPHENHYDRAMINE HCL 50 MG/ML VIAL IV ONE ×2 (12:24→18:23)
[2019-01-25] MEDS ORDERED: ONDANSETRON HCL INJ/PF 4 MG/2 ML SDV IV ONE ×2 (12:25→18:23)
[2019-01-25] MEDS ORDERED: MORPHINE SULFATE 10 MG/ML INJ IV ONE ×2 (12:25→13:58)
[2019-01-25 12:58] LABS: ABSOLUTE EOSINOPHILS # (AUTO) 0.1 10^3/uL (0.0-0.6); ABSOLUTE MONOCYTES (AUTO) 0.7 10^3/uL (0.1-1.4); ABSOLUTE NEUT (AUTO) 7.2 10^3/uL (1.7-8.2); BASOPHILS % (AUTO) 0.4 % (0-2); EOSINOPHILS % (AUTO) 1.1 % (0-6); HEMATOCRIT 39.5 % (36.0-47.0); HEMOGLOBIN 13.5 g/dL (12.0-15.5); LYMPHOCYTES % (AUTO) 19.4 % (13-45); MEAN CORPUSCULAR HEMOGLOBIN 32.4 pg (27.0-33.4); MEAN CORPUSCULAR HGB CONC 34.3 g/dL (32.0-36.0); MEAN CORPUSCULAR VOLUME 94 fl (80-97); MONOCYTES % (AUTO) 7.3 % (3-13); PLATELET COUNT 247 10^3/uL (150-450); RED BLOOD COUNT 4.18 10^6/uL (3.72-5.28); RED CELL DISTRIBUTION WIDTH 12.4 % (11.5-14.0); SEGMENTED NEUTROPHILS % (AUTO) 71.8 % (42-78); TOTAL CELLS COUNTED % (AUTO) 100 %
[2019-01-25 13:03] LABS: APPEARANCE,URINE CLEAR; BILIRUBIN,URINE NEGATIVE (NEGATIVE); COLOR,URINE STRAW; GLUCOSE, URINE NEGATIVE (NEGATIVE); KETONES,URINE NEGATIVE (NEGATIVE); LEUKOCYTE ESTERASE,URINE NEGATIVE (NEGATIVE); NITRITE,URINE NEGATIVE (NEGATIVE); PROTEIN,URINE NEGATIVE (NEGATIVE); URINE SPECIFIC GRAVITY 1.006; UROBILINOGEN,URINE NEGATIVE mg/dL (<2.0)
[2019-01-25 13:07] LABS: ALBUMIN 4.7 g/dL (3.5-5.0); ALKALINE PHOSPHATASE 91 U/L (38-126); ANION GAP 10 (5-19); ASPARTATE AMINO TRANSFERASE 32 U/L (14-36); BILIRUBIN,DIRECT 0.2 mg/dL (0.0-0.4); BILIRUBIN,TOTAL 0.4 mg/dL (0.2-1.3); BLOOD UREA NITROGEN 18 mg/dL (7-20); CALCIUM 9.4 mg/dL (8.4-10.2); CARBON DIOXIDE 27 mmol/L (22-30); CHLORIDE 103 mmol/L (98-107); GLUCOSE 114 mg/dL (75-110); POTASSIUM 4.6 mmol/L (3.6-5.0)
--- NOTE | 2019-01-25 17:01 | RADIOLOGY REPORT (SQ) ---
EXAM DESCRIPTION: CT ABD/PELVIS WITH IV ORAL COMPLETED DATE/TIME: 01/25/2019 4:40 pm REASON FOR STUDY: Right sided abdominal pain COMPARISON: 04/26/2018 TECHNIQUE: CT scan of the abdomen and pelvis performed using helical scanning technique with dynamic intravenous contrast injection. No oral contrast. Images reviewed with lung, soft tissue, and bone w indows. Reconstructed coronal and sagittal MPR images reviewed. Delayed images for evaluation of the urinary system also acquired. All images stored on PACS. All CT scanners at this facility use dose modulation, iterative reconstruction, and/or weight based d osing when appropriate to reduce radiation dose to as low as reasonably achievable (ALARA). [facility]: Dose Right [facility]: CareDose [facility]: Dose Right [facility]: Teradose 4D [facility]: [facility] CONTRAST TYPE AND DOSE: contrast/concentration: Isovue 350.00 mg/ml; Total Contrast Delivered: 77.0 ml; Total Saline Delivered: 67.0 ml RENAL FUNCTION: None required. The patient is less than 50 years old. RADIATION DOSE: CT Rad equipment meets quality standard of care and radiation dose reduction techniq ues were employed. CTDIvol: 7.8 - 11.7 mGy. DLP: 1092 mGy-cm.. LIMITATIONS: None. FINDINGS: LOWER CHEST: No significant findings. LIVER: Normal size. No enhancing masses. No dilated ducts. SPLEEN: Normal size. No focal lesions. PANCREAS: No masses identified. No significant calcifications. No adjacent inflammation or peripancre atic fluid collections. Pancreatic duct not dilated. GALLBLADDER: Surgically absent. ADRENAL GLANDS: No significant masses. RIGHT KIDNEY AND URETER: No cysts identified. No solid masses identified. No calcified stones. No hyd ronephrosis or hydroureter. LEFT KIDNEY AND URETER: No cysts identified. No solid masses identified. No calcified stones. No hydr onephrosis or hydroureter. AORTA AND VESSELS: No aneurysm. No dissection. Renal arteries, SMA, celiac without significant stenos is. RETROPERITONEUM: No bulky retroperitoneal adenopathy. BOWEL AND PERITONEAL CAVITY: No obstruction or inflammatory changes. No free fluid. APPENDIX: Normal. PELVIS: No mass. No free fluid. Unremarkable bladder. ABDOMINAL WALL: No masses. No hernias. BONES: No acute findings. OTHER: No other significant finding. IMPRESSION: NO ACUTE FINDINGS IN THE ABDOMEN OR PELVIS ON CT SCAN WITH IV CONTRAST. TECHNICAL DOCUMENTATION: JOB ID: [id number] Quality ID # [id number]: Final reports with documentation of one or more dose reduction techniques (e.g., Au tomated exposure control, adjustment of the mA and/or kV according to patient size, use of iterative reconstruction technique) 2010 [employer]- All Rights Reserved Reading location - IP/workstation name: [email or web address]
[2019-01-25] MEDS ORDERED: DICYCLOMINE HCL 20 MG TABLET PO ONE (18:23)
--- NOTE | 2019-01-25 18:35 | ER Document Report ---
ED GI/ - General Chief Complaint: Abdominal Pain Stated Complaint: ABDOMINAL PAIN Time Seen by Provider: 01/25/19 12:24 Primary Care Provider: AYE BOYD DO [Primary Care Provider] - Follow up as needed Notes: Patient c/o sever pains in right side of abdomen started this morning. Severe cramping pain, only on right side and mid abdom, above McBurney's point. Has never had this pain before, but does have IBS causing bowel changes and abdominal pains. Denies fever. Denies vomiting or diarrhea. Last BM this am. No blood. Denies chest pain Has had her gallbladder removed. Three hernia repairs (2 of them at umbilcus, one involved lower esophagus--does not know more) TRAVEL OUTSIDE OF THE [place] IN LAST 30 DAYS: No - Related Data Allergies/Adverse Reactions: hydromorphone HCl [From Dilaudid] Allergy (Verified 06/03/18 15:55) ketorolac tromethamine [From Toradol] Allergy (Verified 06/03/18 15:55) promethazine HCl [From Phenergan] Allergy (Verified 06/03/18 15:55) Past Medical History - Social History Smoking Status: Never Smoker Chew tobacco use (# tins/day): No Frequency of alcohol use: Occasional Drug Abuse: None Family History: Arthritis, CAD, DM, Hypertension, Malignancy, Thyroid Disfunction, Other - Uncle of an aneurysm Patient has suicidal ideation: No Patient has homicidal ideation: No Pulmonary Medical History: Reports: Hx Asthma, Hx Bronchitis, Hx Pneumonia - cerebral palsy Neurological Medical History: Reports: Hx Migraine Endocrine Medical History: Reports: Hx Hypothyroidism Renal/ Medical History: Reports: Hx Ovarian Cysts GI Medical History: Reports: Hx Irritable Bowel Musculoskeletal Medical History: Reports Hx Arthritis, Reports Hx Muscle Spasm, Reports Hx Musculoskeletal Deformity - Left leg 1 inch shorter than right Past Surgical History: Reports: Hx Abdominal Surgery, Hx Adenoidectomy, Hx Cholecystectomy, Hx Gynecologic Surgery - ovarian cyst, Hx Orthopedic Surgery, Hx Thyroid Surgery - 05/24/18, Hx Tonsillectomy - Immunizations Hx Diphtheria, Pertussis, Tetanus Vaccination: Yes Review of Systems - Review of Systems Notes: CONSTITUTIONAL : Denies fever. EENT: Denies eye, ear, nose or mouth or throat pain or other symptoms. CARDIOVASCULAR: Denies chest pain. RESPIRATORY: Denies cough, chest congestion, or shortness of breath. GASTROINTESTINAL: see HPI GENITOURINARY: Denies difficulty or painful urinating, urinary frequency, blood in urine. MUSCULOSKELETAL: Denies back or neck pain. Denies joint pain or swelling. SKIN: Denies rash or skin lesions. NEUROLOGICAL: Denies LOC or altered mental status. Denies headache. Patient has cerebral palsy which affects her speach and left upper extremity weakness. Otherwise walks, drives car, etc.. ALL OTHER SYSTEMS REVIEWED AND NEGATIVE. Physical Exam - Vital signs Vitals: Temp Pulse Resp BP Pulse Ox 97.6 F 97 15 118/92 H 99 01/25/19 11:50 01/25/19 11:50 01/25/19 11:50 01/25/19 11:50 01/25/19 11:50 Interpretation: Normal - Notes Notes: Appears in pain, tearful. - General In distress: Moderate - HEENT Head: Normocephalic, Atraumatic Eyes: Normal Pupils: PERRL - Respiratory Respiratory status: No respiratory distress Breath sounds: Normal - Cardiovascular Rhythm: Regular Heart sounds: Normal auscultation Murmur: No - Abdominal Distension: No distension Bowel sounds: Normal Tenderness: Tender - Tender right side of the abdom at level of the umbilicus. No: McBurney's point - pain above, Baca's sign Organomegaly: No organomegaly - Back Back: Normal, Nontender - Extremities General upper extremity: Normal inspection, Nontender, Normal color, Normal ROM, Normal temperature General lower extremity: Normal inspection, Nontender, Normal color, Normal ROM, Normal temperature, Normal weight bearing. No: Drew's sign - Neurological Neuro grossly intact: Yes Cognition: Normal Orientation: AAOx4 Maria De Jesus Coma Scale Eye Opening: Spontaneous Bliss Coma Scale Verbal: Oriented Bliss Coma Scale Motor: Obeys Commands Maria De Jesus Coma Scale Total: 15 Speech: Dysarthria - mild, from CP Motor strength normal: LUE - weak from CP, RUE, LLE, RLE Sensory: Normal - Skin Skin Temperature: Warm Skin Moisture: Dry Skin Color: Normal Course - Re-evaluation Re-evalutation: 01/27/19 13:22 Patient continued to have pain relieved by Morphine. Her entire workup, including the CT scan with oral and IV contrast were normal. Appendix normal. D/W patient and mother and recommended trial of Bentyl. - Vital Signs Vital signs: Temp Pulse Resp BP Pulse Ox 97.6 F 97 15 118/92 H 99 01/25/19 11:50 01/25/19 11:50 01/25/19 11:50 01/25/19 11:50 01/25/19 11:50 - Laboratory Result Diagrams: 01/25/19 11:22 01/25/19 11:22 Laboratory results interpreted by me: 01/25/19 11:22 Glucose 114 H Discharge - Discharge Clinical Impression: Abdominal pain Disposition: HOME, SELF-CARE Additional Instructions: ABDOMINAL PAIN: There are many causes of abdominal pain. Pain can mean a serious problem requiring surgery (such as appendicitis). It can also be an innocent problem that goes away on its own (such as a viral infection). Often, time must pass to determine the cause of pain. The physician does not feel that hospitalization is necessary, at present. Things may change within the next 24 hours. Call the doctor or come back for re- examination if any problems occur, such as: (1) Pain that becomes more severe, steady, or becomes concentrated in one specific area. Also, pain that is more severe with movement or coughing. (2) Vomiting that persists or becomes more frequent. (3) Blood in the vomitus, urine, or bowel movements. Blood in the stool may have a tarry or black appearance. (4) Shaking chills or fever greater than 100 degrees F. (5) The abdomen becomes more distended or swollen. (6) Bowel movements cease. (7) Failure to improve as expected. NORMAL EXAM AND WORKUP: At this time, your examination and workup show no significant abnormality. No significant abnormal physical findings are noted. All laboratory, EKG, and imaging (x-ray, CT scans, ultrasound) studies that were ordered show no significant abnormality. Although your examination and all studies that were ordered showed no significant abnormal finding, there are no examinations and no studies that are 100% accurate. There is always the possibility that some abnormality could exist and not be detected with physical examination or within the limits and capabilities of laboratory and other studies. You should return or follow up as you were instructed on your visit today for further evaluation if your symptoms do not resolve. PAIN MEDICATION INJECTION: You have received an injection of a pain medication. You should experience significant pain relief within 45 minutes. This drug is a narcotic -- it will impair your judgement, slow your reaction time and make you sleepy (as well as relieve your pain). Narcotics also can cause nausea. You should not drive, work with machinery, or perform any task requiring mental alertness until all effects of the medication are gone -- six to eight hours. Do not take any alcohol, or sedatives, and do not take any other medication without checking with your physician. ANTINAUSEA MEDICATION: You have been given a medication to suppress nausea and vomiting. This type of medication can be given as a shot, pill, or suppository. It will usually last for many hours. Pills and shots usually last six to eight hours, suppositories last about 12 hours. For the typical illness, only one or two doses of the medication may be necessary. Mild lightheadedness may occur. This type of medicine can cause drowsiness. Do not drive or operate dangerous machinery while under its influence. Do not mix with alcohol. See your doctor at once if you have muscle spasms or tightness, or uncontrollable motions (particularly of the neck, mouth, or jaw). Persistent vomiting or severe lightheadedness should also be evaluated by the physician. Irritable Bowel Syndrome The cause of irritable bowel syndrome is unknown. Although often called "colitis", it is not an infection or inflammatory condition. Symptoms vary, but can include periodic abdominal cramping, migratory abdominal pains, diarrhea, or constipation. Commonly, a few days of constipation is followed by loose stools, then constipation begins again. There is no specific test for irritable bowel syndrome. The disease is diagnosed by history and exam findings, and by finding no evidence of other disease. Irritable bowel syndrome is treated by making the stool softer and bulkier. Regular meals, including plenty of soluble fiber, help. Avoid foods which provoke cramping. Stool "bulking agents," such as Metamucil, help. Expect occasional flare-ups. Call the physician if symptoms worsen, such as severe or constant abdominal pain, fever, blood in the stool, increasing constipation, or more frequent or severe diarrhea. ANTISPASMODICS: You have been given a prescription for an antispasmodic medicine. This type of drug is used to decrease cramping and pain in the intestines. It is also used to decrease secretion of internal fluids (such as stomach acid in ulcer disease or pancreatic juice in pancreas disease). This medicine may cause drowsiness, especially with the first dose. Do not operate machinery or drive until all side effects have resolved. Do not combine with alcohol. Other common side effects include dry mouth and eyes. In older persons, antispasmodics can occasionally cause urinary retention, constipation, or trouble focusing the eyes. Glaucoma may be worsened by this medicine. FOLLOW-UP CARE: If you have been referred to a physician for follow-up care, call the physicians office for an appointment as you were instructed or within the next two days. If you experience worsening or a significant change in your symptoms, notify the physician immediately or return to the Emergency Department at any time for re-evaluation. Prescriptions: Dicyclomine HCl [Bentyl 20 mg Tablet] 40 mg PO QIDP PRN #50 tablet PRN Reason: Forms: Return to Work Referrals: AYE BOYD DO [Primary Care Provider] - Follow up as needed
== END 2019-01-25 19:26 | disposition home or self-care (01) ==
LOC: ER 11:16
DX: K58.9 Irritable bowel syndrome, unspecified (principal); R10.9 Unspecified abdominal pain; G80.9 Cerebral palsy, unspecified; J45.909 Unspecified asthma, uncomplicated; Z90.49 Acquired absence of other specified parts of digestive tract; Z88.5 Allergy status to narcotic agent; Z88.8 Allergy status to other drugs, medicaments and biological substances
CPT/HCPCS: 36415; 83690; 84703; 85025; 80053; 81001; 74177; A9270; J1200; J2270; J2405; 96374; 96375; 96376; 99284; J3490

== ENCOUNTER 2019-02-18 05:45 | Observation (INO) | payer MEDICARE, MEDICAID ==
[2019-02-11 11:55] LABS: ABSOLUTE EOSINOPHILS # (AUTO) 0.1 10^3/uL (0.0-0.6); ABSOLUTE MONOCYTES (AUTO) 0.5 10^3/uL (0.1-1.4); ABSOLUTE NEUT (AUTO) 3.5 10^3/uL (1.7-8.2); BASOPHILS % (AUTO) 0.5 % (0-2); EOSINOPHILS % (AUTO) 1.4 % (0-6); HEMATOCRIT 37.6 % (36.0-47.0); HEMOGLOBIN 12.9 g/dL (12.0-15.5); MEAN CORPUSCULAR HGB CONC 34.4 g/dL (32.0-36.0); MEAN CORPUSCULAR VOLUME 93 fl (80-97); MONOCYTES % (AUTO) 6.8 % (3-13); PLATELET COUNT 252 10^3/uL (150-450); RED BLOOD COUNT 4.04 10^6/uL (3.72-5.28); RED CELL DISTRIBUTION WIDTH 12.5 % (11.5-14.0); SEGMENTED NEUTROPHILS % (AUTO) 49.3 % (42-78); TOTAL CELLS COUNTED % (AUTO) 100 %; WHITE BLOOD COUNT 7.2 10^3/uL (4.0-10.5)
[2019-02-11 12:15] LABS: APPEARANCE,URINE CLOUDY; BILIRUBIN,URINE NEGATIVE (NEGATIVE); COLOR,URINE YELLOW; GLUCOSE, URINE NEGATIVE (NEGATIVE); KETONES,URINE NEGATIVE (NEGATIVE); LEUKOCYTE ESTERASE,URINE NEGATIVE (NEGATIVE); NITRITE,URINE NEGATIVE (NEGATIVE); PROTEIN,URINE NEGATIVE (NEGATIVE); URINE SPECIFIC GRAVITY 1.013; UROBILINOGEN,URINE NEGATIVE mg/dL (<2.0)
[2019-02-11 12:19] LABS: ANION GAP 13 (5-19); BLOOD UREA NITROGEN 11 mg/dL (7-20); CALCIUM 9.5 mg/dL (8.4-10.2); CARBON DIOXIDE 24 mmol/L (22-30); CHLORIDE 103 mmol/L (98-107); GLUCOSE 75 mg/dL (75-110); POTASSIUM 4.7 mmol/L (3.6-5.0)
--- NOTE | 2019-02-11 13:32 | EKG REPORT ---
SEVERITY:- NORMAL ECG - SINUS RHYTHM : Confirmed by: Easton Biswas MD 11-Feb-2019 13:30:56
[~2019-02-18 05:45] MED LIST changes: +CEFAZOLIN SODIUM 2 GM in DEXTROSE 5%-WATER 100 ML IV PRN; -DIPHENHYDRAMINE HCL 50 MG/ML VIAL ONE; -EPINEPHRINE INJ 1 MG/10 ML DISP.SYRIN ONE; -FENTANYL CITRATE INJ/PF 100 MCG/2 ML AMPUL ONE; -FLUMAZENIL INJ 0.5 MG/5 ML VIAL ONE; -GLUCAGON,HUMAN RECOMB 1 MG INJ ONE; +LACTATED RINGERS 1000 ML IV PRN; -NALOXONE HCL INJ/PF 0.4 MG/1 ML SDV ONE; -ONDANSETRON HCL INJ/PF 4 MG/2 ML SDV ONE
[2019-02-18] MEDS ORDERED: FENTANYL CITRATE INJ/PF 100 MCG/2 ML AMPUL ONE (06:24)
[2019-02-18] MEDS ORDERED: PROPOFOL INJ 200 MG/20 ML VIAL IV ONE ×2 (06:25→10:49)
[2019-02-18] MEDS ORDERED: ONDANSETRON HCL INJ/PF 4 MG/2 ML SDV ONE (06:25)
[2019-02-18] MEDS ORDERED: MIDAZOLAM 2 MG/2 ML INJ ONE ×2 (06:25→10:03)
[2019-02-18] MEDS ORDERED: DEXAMETHASONE SOD PHOSPHATE INJ 4 MG/1 ML VIAL ONE ×2 (06:25→10:01)
[2019-02-18] MEDS ORDERED: DIPHENHYDRAMINE HCL 50 MG/ML VIAL ONE ×2 (07:35→10:27)
[2019-02-18] MEDS ORDERED: BUPIVACAINE HCL 0.5 % INJ/PF 30 ML SDV ONE (07:42)
[2019-02-18] MEDS ORDERED: DIPHENHYDRAMINE HCL 50 MG/ML VIAL IV PRN (08:28)
[2019-02-18] MEDS ORDERED: MEPERIDINE HCL/PF INJ 25 MG/1 ML DISP.SYRIN IV PRN (08:28)
[2019-02-18] MEDS ORDERED: ONDANSETRON HCL INJ/PF 4 MG/2 ML SDV IV PRN ×2 (08:28→12:35)
[2019-02-18] MEDS ORDERED: FENTANYL CITRATE INJ/PF 100 MCG/2 ML AMPUL IV PRN ×3 (08:28)
[2019-02-18] MEDS ORDERED: MORPHINE SULFATE 10 MG/ML INJ IV PRN (08:51)
[2019-02-18] MEDS ORDERED: OXYCODONE-ACETAMINOPHEN 5-325 MG TABLET PO PRN (08:51)
--- NOTE | 2019-02-18 08:55 | Operative Report ---
Operative Report DATE OF SURGERY: 02/18/19 PREOPERATIVE DIAGNOSIS: Right wrist de Quervain's tenosynovitis, superficial ra dial neuralgia POSTOPERATIVE DIAGNOSIS: Same OPERATION: 1. First dorsal compartment release right wrist. 2. Neuro lysis superficial radial nerve right wrist SURGEON: ZAY GARCIA ANESTHESIA: GA COMPLICATIONS: None ESTIMATED BLOOD LOSS: Minimal PROCEDURE: Indication for above procedure: 33-year-old female with long-standing history of right wrist discomfort after sustaining a twisting injury to her wrist. Attempted conservative measures including anti-inflammatories, injections activity modification but patient continued to have discomfort. On examination findings consistent with de Quervain's tenosynovitis and superficial radial neuralgia. After failing conservative management decision was made to proceed with operative intervention. Procedure In Detail: Patient was seen and evaluated in the preoperative holding area. The RIGHT upper extremity was initialized and marked. Patient received 2g of Ancef IV for bacterial prophylaxis. Patient was taken back to the operative room where transferred to the operative table and placed under general anesthesia. Once they were adequately anesthetized a nonsterile tourniquet was placed on the upper extremity. A surgical team debriefing was performed ensuring all instrumentation was available, the surgical procedure was discussed with possible concerns reviewed. The upper extremity was prepped with chlorhexidine and alcohol and draped in a sterile fashion. A timeout was done identifying correct patient, procedure and extremity everyone in attendance agree with this and verbalized no concerns. The extremity was exsanguinated the tourniquet was inflated to 250 mmHg. A longitudinal skin incision was centered over the first dorsal compartment at the level of the radial styloid. Careful dissection was done through the soft tissues the superficial branch of the radial nerve was identified and retracted with the skin. There is a small vein overlying the first dorsal compartment which was carefully retracted but not disrupted. Any peripheral bleeding was coagulated with bipolar cautery. I then identified the first dorsal compartment. The first dorsal compartment was incised along its dorsal third to avoid postoperative volar subluxation. Within the first dorsal compartment there was moderate tenosynovitis and thus a partial tenosynovectomy was performed. The APL and EPB tendons were identified. There was no evidence of a sub-compartment of the EDB. Also evident was 4 tendon slips of the APL that were released as well. I ensured complete release the first dorsal compartment distally and proximally. The wrist was then placed through range of motion to ensure no subluxation of the first dorsal compartment tendons. Separate dorsal incision was made proximal to the first dorsal compartment at the intersection of the first and second dorsal compartments. Blunt dissection was performed. Small peripheral vein was coagulated bipolar cautery. Superficial radial nerve was identified as it extended over the first dorsal compartment from the previous incision dorsally crossing the interval between the ECRL and brachioradialis blunt dissection was performed in the fibrous bands were released and the superficial radial nerve neurolysed. The proximal aspect of the first dorsal compartment including the EPL and EPB the muscle belly was debrided there was evidence of tenosynovium at this level as it crossed the in tersection of the second dorsal compartment. The wound was then irrigated with normal saline. Tourniquet was deflated, any remaining peripheral vasculature was coagulated with bipolar cautery. I then proceeded with closure utilizing a running subcuticular 4-0 Monocryl suture which was reinforced with Dermabond and Steri-Strips. Wound was dressed with a thumb spica splint. Sponge counts, instrument counts, needle counts counts were correct. Patient was then awoken from anesthesia. Transferred from the operating room table to the operating room stretcher. There was no intraoperative complications patient tolerated procedure well stable to PACU. Postoperative plan: Patient will follow-up in 2 weeks for wound check.
--- NOTE | 2019-02-18 08:55 | Discharge Summary ---
Discharge Summary (SDC) - Discharge Final Diagnosis: Right wrist de Quervain's tenosynovitis, superficial radial neuralgia Date of Surgery: 02/18/19 Discharge Date: 02/18/19 Condition: Good Treatment or Instructions: Schedule Follow Up w/ Dr. Ivan Hernandez @ [facility] to be seen in 10-14 days or as scheduled [place]: [place]: [place]: Ice and elevate Keep splint clean/dry/intact, do not remove. If your fingers become numb please unwrap the Mikal wrap but leave the splint in place, if the sensation does not return within 30 minutes please return to the emergency department. May begin finger range of motion attempting to make full fist. Please use ibuprofen (Motrin or Advil) 600-800 mg every 8 hours as needed for pain or fever You may also use acetaminophen (Tylenol) 1000 mg every 4-6 hours as needed for pain or fever. Please be aware that many medications contain acetaminophen, do not exceed a total of 1000 mg of acetaminophen every 6 hours. If ibuprofen and acetaminophen are not sufficient for your pain you may take the Percocet/[place]. Please be aware that the Percocet/[place] does contain Tylenol. Stool softener of choice when on pain medication. USE OF [id number] IBUPROFEN: Ibuprofen (Advil, Nuprin, Medipren, Motrin IB) is a medication for fever and pain control. In addition, it has anti- inflammatory effects which may be beneficial, especially in the treatment of injuries. It's best to take ibuprofen with food. Persons with ulcer disease or allergy to aspirin should notify their physician of this before taking ibuprofen. Ibuprofen can be given every four to six hours, for a total of four doses daily. Age Pain or fever dose Antiinflammatory dose 6-8 yr 200 mg (1 tab) 200 mg (1 tab) 9-11 yr 200 mg (1 tab) 200-400 mg (1-2 tab) 11-14 yr 200-400 mg (1-2 tab) 400 mg (2 tab) 15-adult 400 mg (2 tab) 600 mg (3 tab) ORAL NARCOTIC MEDICATION: You have been given a prescription for pain control. This medication is a narcotic. It's best taken with food, as nausea can result if taken on an empty stomach. Don't operate machinery or drive within six hours of taking this medication. Do not combine this medicine with alcohol, or with any medication which can cause sedation (such as cold tablets or sleeping pills) unless you get permission from the physician. Narcotics tend to cause constipation. If possible, drink plenty of fluids and eat a diet high in fiber and fruits. Please be aware that prescription narcotics also have the potential for abuse. People become addicted to these medications because of the general sense of wellbeing that they induce. This feeling along with a significant reduction in tension, anxiety, and aggression provides a stimulating seductive quality to these drugs. Once your pain is under control, we encourage you to discard your unused narcotics. Prescriptions: Oxycodone HCl/Acetaminophen [Percocet 5-325 mg Tablet] 1 tab PO Q6 PRN #25 tab PRN Reason: Referrals: AYE BOYD DO [Primary Care Provider] - Discharge Diet: As Tolerated Respiratory Treatments at Home: Deep Breathing/Coughing Discharge Activity: No Lifting Over 10 Pounds, No Lifting/Push/Pulling Report the Following to Your Physician Immediately: Fever over 101 Degrees, Unusual Bleeding, Redness, Swelling, Warmth, Increased Soreness
[2019-02-18] MEDS: DIPHENHYDRAMINE HCL 50 MG/ML VIAL ONE ×2 (09:17→09:34)
[2019-02-18] MEDS ORDERED: ALBUTEROL SULFATE 0.083% NEB 2.5 MG/3 ML AMPUL NEB ONE (09:48)
[2019-02-18] MEDS ORDERED: RACEPINEPHRINE HCL 2.25% NEB 0.5 ML AMPUL NEB ONE (10:13)
[2019-02-18] MEDS ORDERED: DEXAMETHASONE SOD PHOS INJ 10 MG/1 ML VIAL ONE (10:21)
[2019-02-18] MEDS ORDERED: LIDOCAINE 2% INJ-PF (20 MG/ML) 10 ML AMPUL ONE (10:24)
[2019-02-18] MEDS ORDERED: TRANEXAMIC ACID INJ/PF 1,000 MG/10 ML SDV ONE (10:37)
[2019-02-18] MEDS ORDERED: NORMAL SALINE 1000 ML 1,000 ML IV PRN (12:35)
[2019-02-18] MEDS ORDERED: LEVALBUTEROL HCL NEB 0.63 MG/3 ML AMPUL NEB PRN (12:35)
[2019-02-18] MEDS ORDERED: ACETAMINOPHEN 325 MG TABLET PO PRN (12:35)
--- NOTE | 2019-02-18 12:35 | PDOC H&P ---
History of Present Illness Admission Date/PCP: AYE BOYD DO Patient complains of: Difficulty in breathing difficulty in swallowing after the surgery. History of Present Illness: MYRNA LUCIA is a 33 year old female with history of cerebral palsy, asthma , history of pneumonia, hypothyroidism secondary to thyroid surgery for Graves' disease, musculoskeletal dystrophy had outpatient surgery was done for right wrist de Quervain's Tenosynovitis under general anesthesia after the surgery she complained of difficulty in swallowing difficulty in breathing associated with panic attacks patient was given racemic epinephrine neb , Benadryl, FFP x2, Decadron 4 mg and 8 mg doses tranxemic acid IV. Patient started recovering at the time of my examination patient is comfortable in the bed communicating okay. pulse ox is 97% on 2 L. Plan is to keep her in the hospital for 24 hours for observation. Patient agreed to stay in the hospital. At the time of my examination denies any problems with breathing denies any problems swallowing denies any problems of chest pain nausea or vomitings or headaches. Denies any skin rashes. Per the patient she had a similar episodes 4 times during the prior surgeries. Past Medical History Cardiac Medical History: Denies: Coronary Artery Disease, Myocardial Infarction, Hypertension Pulmonary Medical History: Reports: Asthma - exercise induced , Bronchitis, Pneumonia - cerebral palsy Denies: Chronic Obstructive Pulmonary Disease (COPD) Neurological Medical History: Reports: Migraine Denies: Seizures Endocrine Medical History: Reports: Hypothyroidism Musculoskeltal Medical History: Reports: Arthritis Hematology: Denies: Anemia Past Surgical History Past Surgical History: Reports: Adenoidectomy, Cholecystectomy, Orthopedic Surgery, Tonsillectomy Denies: Hysterectomy Social History Information Source: Patient Lives with: Family Smoking Status: Never Smoker Frequency of Alcohol Use: None Hx Recreational Drug Use: No - Advance Directive Resuscitation Status: Full Code Family History Family History: Arthritis, CAD, DM, Hypertension, Malignancy, Thyroid Disfunction, Other - Uncle of an aneurysm Parental Family History Reviewed: Yes - Family history of hypertension, heart disease. Children Family History Reviewed: Yes Sibling(s) Family History Reviewed.: Yes Medication/Allergy Home Medications: Oxycodone HCl 5 mg PO Q6H PRN 04/11/18 Zolpidem Tartrate [Ambien] 10 mg PO QHS 04/11/18 Albuterol Sulfate [Proair Respiclick] 90 mcg IH Q6H PRN 05/27/18 Levothyroxine Sodium [Synthroid 0.1 mg Tablet] 0.1 mg PO DAILY 05/27/18 Alprazolam 1 tab PO BID PRN 02/11/19 Amitriptyline HCl [Elavil 10 mg Tablet] 1 tab PO QHS 02/11/19 Cyclobenzaprine HCl [Flexeril 10 mg Tablet] 1 tab PO TID PRN 02/11/19 Furosemide [Lasix] 1 tab PO DAILY 02/11/19 Oxycodone HCl/Acetaminophen [Percocet 5-325 mg Tablet] 1 tab PO Q6 PRN #25 tab 02/18/19 Allergies/Adverse Reactions: hydromorphone HCl [From Dilaudid] Allergy (Verified 02/18/19 05:55) ketorolac tromethamine [From Toradol] Allergy (Verified 02/18/19 05:55) promethazine HCl [From Phenergan] Allergy (Verified 02/18/19 05:55) Review of Systems Constitutional: ABSENT: fatigue, fever(s), headache(s), night sweats, weakness Eyes: ABSENT: visual disturbances Ears: ABSENT: hearing changes Nose, Mouth, and Throat: PRESENT: other - Planes of difficulty in swallowing difficulty in breathing.. ABSENT: headache(s) Respiratory: PRESENT: dyspnea Gastrointestinal: PRESENT: other - difficulty in swallowing Integumentary: ABSENT: rash, wounds Neurological: ABSENT: abnormal gait, abnormal speech, confusion, dizziness, focal weakness, syncope Psychiatric: ABSENT: anxiety, depression, homidical ideation, suicidal ideation Endocrine: ABSENT: cold intolerance, heat intolerance, polydipsia, polyuria Physical Exam Vital Signs: Temp Pulse Resp BP Pulse Ox 97.6 F 112 H 17 130/87 H 97 02/18/19 08:48 02/18/19 08:48 02/18/19 08:48 02/18/19 08:48 02/18/19 08:48 Intake & Output 02/17/19 02/18/19 02/19/19 06:59 06:59 06:59 Intake Total 0 800 Balance 0 800 Weight 67.13 kg General appearance: PRESENT: no acute distress, cooperative Head exam: PRESENT: atraumatic Eye exam: PRESENT: PERRLA Mouth exam: PRESENT: moist, tongue midline Teeth exam: PRESENT: poor dentation Neck exam: PRESENT: carotid bruit Respiratory exam: PRESENT: clear to auscultation [place]. ABSENT: rales, rhonchi, wheezes Cardiovascular exam: PRESENT: RRR. ABSENT: diastolic murmur, rubs, systolic murmur GI/Abdominal exam: PRESENT: normal bowel sounds, soft. ABSENT: distended, guarding, mass, organolmegaly, rebound, tenderness Rectal exam: PRESENT: deferred Extremities exam: PRESENT: full ROM. ABSENT: calf tenderness, clubbing, pedal edema Neurological exam: PRESENT: alert, awake, oriented to person, oriented to place, oriented to time, oriented to situation, CN II-XII grossly intact. ABSENT: motor sensory deficit Psychiatric exam: PRESENT: appropriate affect, normal mood. ABSENT: homicidal ideation, suicidal ideation Results Laboratory Results: 02/11/19 10:46 02/18/19 06:14 02/18/19 02/18/19 06:14 10:47 Potassium 3.9 Blood Type O POSITIVE Assessment and Plan - Diagnosis (1) Angio-edema Is this a current diagnosis for this admission?: Yes Plan: 02/18/2019-patient admitted for angioedema she is going to be admitted under observation. To closely monitor the pulse ox . To continue IV Solu-Medrol at 40 mg twice daily. She is going to be admitted to medical floor with telemetry. GI prophylaxis DVT prophylaxis will be initiated. Plan to restart her home medications. To place the patient on 2 L oxygen via nasal cannula. plan to do the basic labs CBC chemistry magnesium and chest x-ray. 2.hypothyroidism Patient is on levothyroxine 0.1 mg daily. She has history of Graves' disease and thyroidectomy was done. Patient is receiving thyroid supplementations. 3.Cerebral palsy Patient has a history of cerebral palsy able to communicate properly. Patient has a stuttering voice otherwise alert awake communicating very well. - Time Time Spent with patient: 25-34 minutes Medications reviewed and adjusted accordingly: Yes Anticipated discharge: Home
[2019-02-18] MEDS ORDERED: ALPRAZOLAM PO PRN (12:44)
[2019-02-18] MEDS ORDERED: (PENDING PHARMACY ID) (Albuterol Sulfate [Proair Respiclick] 90 MCG) IH PRN (12:44)
[2019-02-18] MEDS ORDERED: (PENDING PHARMACY ID) (Oxycodone Hcl [Oxycodone Hcl] 5 MG) PO PRN (12:44)
--- NOTE | 2019-02-18 13:11 | RADIOLOGY REPORT (SQ) ---
EXAM DESCRIPTION: CHEST SINGLE VIEW COMPLETED DATE/TIME: 02/18/2019 1:02 pm REASON FOR STUDY: shortness of breath COMPARISON: 12/09/2018. EXAM PARAMETERS: NUMBER OF VIEWS: One view. TECHNIQUE: Single frontal radiographic view of the chest acquired. RADIATION DOSE: NA LIMITATIONS: None. FINDINGS: LUNGS AND PLEURA: No opacities, masses or pneumothorax. No pleural effusion. MEDIASTINUM AND HILAR STRUCTURES: No masses. Contour normal. HEART AND VASCULAR STRUCTURES: Heart normal in size. Normal vasculature. BONES: No acute findings. HARDWARE: None in the chest. OTHER: No other significant finding. IMPRESSION: NO ACUTE RADIOGRAPHIC FINDING IN THE CHEST. TECHNICAL DOCUMENTATION: JOB ID: [id number] 1891 [employer]- All Rights Reserved Reading location - IP/workstation name: [email or web address]
[2019-02-18] MEDS ORDERED: SUCCINYLCHOLINE CHLORIDE INJ 200 MG/10 ML VIAL ONE (14:28)
[2019-02-18] MEDS: ALPRAZOLAM 0.5 MG TABLET PO PRN ×2 (16:26→22:08)
[2019-02-18] MEDS: HEPARIN SOD (PORCINE) 5,000 UNIT/ML 1 ML VIAL SUBCUT SCH ×2 (16:31→22:07)
[2019-02-18] MEDS: LEVOTHYROXINE SODIUM 0.1 MG TABLET PO SCH (17:48)
[2019-02-18] MEDS ORDERED: ALBUTEROL SULFATE HFA (90 MCG/PUFF) 200 PUFF/8.5 GM MDI IH PRN (18:19)
[2019-02-18] MEDS: CYCLOBENZAPRINE HCL 10 MG TABLET PO PRN ×2 (18:21→22:07)
[2019-02-18] MEDS ORDERED: FUROSEMIDE 20 MG TABLET PO ONE (19:00)
[2019-02-18] MEDS: DIPHENHYDRAMINE HCL 50 MG/ML VIAL IV PRN (19:17)
[2019-02-18] MEDS ORDERED: (PENDING PHARMACY ID) (Zolpidem Tartrate [Ambien] 10 MG) PO SCH (22:00)
[2019-02-18] MEDS ORDERED: AMITRIPTYLINE HCL 10 MG TABLET PO SCH (22:00)
[2019-02-18] MEDS ORDERED: ZOLPIDEM TARTRATE 5 MG TABLET PO SCH (22:00)
[2019-02-18] MEDS: METOPROLOL SUCCINATE 25 MG TAB.SR.24H PO SCH (22:07)
[2019-02-18] MEDS: METHYLPREDNISOLONE INJ 40 MG/1 ML SDV IV SCH (22:07)
[2019-02-18] MEDS: FAMOTIDINE 20 MG TABLET PO SCH (22:08)
[2019-02-18] MEDS: OXYCODONE HCL IR 5 MG TABLET PO PRN (22:09)
[2019-02-19] MEDS: HEPARIN SOD (PORCINE) 5,000 UNIT/ML 1 ML VIAL SUBCUT SCH ×2 (05:16→14:18)
[2019-02-19] MEDS: LEVOTHYROXINE SODIUM 0.1 MG TABLET PO SCH (05:16)
[2019-02-19 06:25] LABS: ABSOLUTE LYMPHOCYTES (AUTO) 0.8 10^3/uL (0.5-4.7); ABSOLUTE MONOCYTES (AUTO) 0.4 10^3/uL (0.1-1.4); ABSOLUTE NEUT (AUTO) 12.2 10^3/uL (1.7-8.2); BASOPHILS % (AUTO) 0.3 % (0-2); HEMATOCRIT 34.5 % (36.0-47.0); HEMOGLOBIN 11.6 g/dL (12.0-15.5); LYMPHOCYTES % (AUTO) 6.2 % (13-45); MEAN CORPUSCULAR HEMOGLOBIN 31.3 pg (27.0-33.4); MEAN CORPUSCULAR HGB CONC 33.5 g/dL (32.0-36.0); MEAN CORPUSCULAR VOLUME 93 fl (80-97); MONOCYTES % (AUTO) 2.8 % (3-13); PLATELET COUNT 235 10^3/uL (150-450); RED CELL DISTRIBUTION WIDTH 12.7 % (11.5-14.0); SEGMENTED NEUTROPHILS % (AUTO) 90.7 % (42-78); TOTAL CELLS COUNTED % (AUTO) 100 %; WHITE BLOOD COUNT 13.4 10^3/uL (4.0-10.5)
--- NOTE | 2019-02-19 06:34 | PDOC PROGRESS REPORT ---
Subjective Progress Note for:: 02/19/19 Subjective:: Patient lying in bed comfortably. States pain has been controlled. Denies numbness or tingling. Denies chest pain or shortness of breath. Reason For Visit: M65.4 RADIAL STYLOID TENOSYNOVITIS [DE QUERVAIN] Physical Exam Vital Signs: Temp Pulse Resp BP Pulse Ox 98.4 F 76 18 119/71 100 02/18/19 20:39 02/19/19 02:00 02/18/19 20:39 02/18/19 20:39 02/18/19 20:39 Intake & Output 02/17/19 02/18/19 02/19/19 06:59 06:59 06:59 Intake Total 0 2182 Output Total 960 Balance 0 1222 Weight 67.13 kg 69.8 kg Musculoskeletal exam: PRESENT: other - Right upper extremity: Splint intact. Intact flexion extension of the index through small finger. Cap refill less than 2 seconds. No significant swelling or ecchymosis. Results Laboratory Results: 02/19/19 05:27 02/18/19 02/18/19 02/19/19 06:14 10:47 05:27 WBC 13.4 H RBC 3.70 L Hgb 11.6 L Hct 34.5 L MCV 93 MCH 31.3 MCHC 33.5 RDW 12.7 Plt Count 235 Seg Neutrophils % 90.7 H Potassium 3.9 Blood Type O POSITIVE Impressions: Chest X-Ray 02/18/19 12:37 IMPRESSION: NO ACUTE RADIOGRAPHIC FINDING IN THE CHEST. Assessment & Plan - Diagnosis (1) Other specified soft tissue disorders Is this a current diagnosis for this admission?: Yes Plan: Status post de Quervain's release. At this point patient is orthopedically sta ble for discharge to home after having a episode of angioedema. Exact initiating event is unknown however patient has a history and I have counseled the patient she should strongly inform any future providers specifically anesthesia if she requires additional surgery. Patient will follow-up as primitivo zaman. - Time Time Spent with patient: Less than 15 minutes
[2019-02-19 06:42] LABS: ALBUMIN 4.3 g/dL (3.5-5.0); ALKALINE PHOSPHATASE 74 U/L (38-126); ANION GAP 12 (5-19); ASPARTATE AMINO TRANSFERASE 35 U/L (14-36); BILIRUBIN,DIRECT 0.1 mg/dL (0.0-0.4); BILIRUBIN,TOTAL 0.4 mg/dL (0.2-1.3); BLOOD UREA NITROGEN 9 mg/dL (7-20); CALCIUM 9.6 mg/dL (8.4-10.2); CARBON DIOXIDE 21 mmol/L (22-30); CHLORIDE 106 mmol/L (98-107); CHOLESTEROL 173.39 mg/dL (0-200); GLUCOSE 163 mg/dL (75-110); POTASSIUM 4.2 mmol/L (3.6-5.0); TOTAL PROTEIN 7.7 g/dL (6.3-8.2); TRIGLYCERIDES 80 mg/dL (<150)
[2019-02-19 06:53] LABS: DIRECT LDL 111 mg/dL (<100)
[2019-02-19] MEDS: OXYCODONE HCL IR 5 MG TABLET PO PRN ×2 (08:46→14:49)
[2019-02-19] MEDS: ALPRAZOLAM 0.5 MG TABLET PO PRN ×2 (08:50→08:54)
[2019-02-19] MEDS: DIPHENHYDRAMINE HCL 50 MG/ML VIAL IV PRN ×2 (08:50→14:50)
[2019-02-19] MEDS: METHYLPREDNISOLONE INJ 40 MG/1 ML SDV IV SCH (09:17)
[2019-02-19] MEDS: FAMOTIDINE 20 MG TABLET PO SCH (09:17)
[2019-02-19] MEDS: METOPROLOL SUCCINATE 25 MG TAB.SR.24H PO SCH (09:17)
[2019-02-19] MEDS ORDERED: FUROSEMIDE 20 MG TABLET PO PRN (10:00)
--- NOTE | 2019-02-19 10:35 | PDOC DISCHARGE SUMMARY ---
Impression - Admit/DC Date/PCP Admission Date/Primary Care Provider: AYE BOYD DO Discharge Date: 02/19/19 - Discharge Diagnosis (1) Angio-edema Is this a current diagnosis for this admission?: Yes - Assessment Summary: 02/18/2019-patient admitted for angioedema she is going to be admitted under observation. To closely monitor the pulse ox . To continue IV Solu-Medrol at 40 mg twice daily. She is going to be admitted to medical floor with telemetry. GI prophylaxis DVT prophylaxis will be initiated. Plan to restart her home medications. To place the patient on 2 L oxygen via nasal cannula. plan to do the basic labs CBC chemistry magnesium and chest x-ray. 2.hypothyroidism Patient is on levothyroxine 0.1 mg daily. She has history of Graves' disease and thyroidectomy was done. Patient is receiving thyroid supplementations. 3.Cerebral palsy Patient has a history of cerebral palsy able to communicate properly. Patient has a stuttering voice otherwise alert awake communicating very well. - Additional Information Resuscitation Status: Full Code Discharge Diet: As Tolerated Discharge Activity: No Lifting Over 10 Pounds, No Lifting/Push/Pulling Referrals: ZAY GARCIA DO [ACTIVE STAFF] - 03/03/19 8:40 am Home Medications: Oxycodone HCl 5 mg PO Q6HP PRN 04/11/18 Zolpidem Tartrate [Ambien] 10 mg PO QHS 04/11/18 Levothyroxine Sodium [Synthroid 0.1 mg Tablet] 0.1 mg PO DAILY 05/27/18 Alprazolam 1 tab PO Q12HP PRN 02/11/19 Amitriptyline HCl [Elavil 10 mg Tablet] 1 tab PO QHS 02/11/19 Cyclobenzaprine HCl [Flexeril 10 mg Tablet] 1 tab PO Q8HP PRN 02/11/19 Furosemide [Lasix] 20 mg PO DAILYP PRN 02/11/19 Dicyclomine HCl [Bentyl 20 mg Tablet] 40 mg PO QIDP PRN 02/18/19 Norethindrone-E.estradiol-Iron [Junel Fe 1 mg-20 Mcg Tablet] 1 tab PO DAILY 02/18/19 Propranolol HCl [Inderal 10 mg Tablet] 10 mg PO Q12 02/18/19 History of Present Illiness History of Present Illness: MYRNA LUCIA is a 33 year old female with history of cerebral palsy, asthma, history of pneumonia, hypothyroidism secondary to thyroid surgery for Graves' disease, musculoskeletal dystrophy had outpatient surgery was done for right wrist de Quervain's Tenosynovitis under general anesthesia after the surgery she complained of difficulty in swallowing difficulty in breathing associated with panic attacks patient was given racemic epinephrine neb , Benadryl, FFP x2, Decadron 4 mg and 8 mg doses tranxemic acid IV. Patient started recovering at the time of my examination patient is comfortable in the bed communicating okay. pulse ox is 97% on 2 L. Plan is to keep her in the hospital for 24 hours for observation. Patient agreed to stay in the hospital. At the time of my examination denies any problems with breathing denies any problems swallowing denies any problems of chest pain nausea or vomitings or headaches. Denies any skin rashes. Per the patient she had a similar episodes 4 times during the prior surgeries. Hospital Course Hospital Course: 33 year old female with history of cerebral palsy, asthma, history of pneumonia, hypothyroidism secondary to thyroid surgery for Graves' disease, musculoskeletal dystrophy had outpatient surgery was done for right wrist de Quervain's Tenosynovitis under general anesthesia after the surgery she complained of difficulty in swallowing difficulty in breathing associated with panic attacks patient was given racemic epinephrine neb , Benadryl, FFP x2, Decadron 4 mg and 8 mg doses tranxemic acid IV. Patient started recovering at the time of my examination patient is comfortable in the bed communicating okay. pulse ox is 97% on 2 L. Plan is to keep her in the hospital for 24 hours for observation. Patient agreed to stay in the hospital. At the time of my examination denies any problems with breathing denies any problems swallowing denies any problems of chest pain nausea or vomitings or headaches. Denies any skin rashes. Per the patient she had a similar episodes 4 times during the prior surgeries. 02/[id number]-[id number]-old female with history of cerebral palsy and had a right wrist surgery is done yesterday developed difficulty in breathing shortness of breath admitted for angioedema symptoms are completely resolved today. Pulse ox is 100% room air today. Patient able to tolerate the breakfast this morning without any problems. Patient can be safely discharged today. Physical Exam Vital Signs: Temp Pulse Resp BP Pulse Ox 99.5 F 87 17 120/70 100 10/16/19 07:25 02/19/19 07:25 02/19/19 07:25 02/19/19 07:25 02/19/19 07:25 Intake & Output 02/18/19 02/19/19 02/20/19 06:59 06:59 06:59 Intake Total 0 2382 Output Total 960 Balance 0 1422 Weight 67.13 kg 72.3 kg General appearance: PRESENT: no acute distress, cooperative Head exam: PRESENT: atraumatic Eye exam: PRESENT: PERRLA Mouth exam: PRESENT: moist, tongue midline Neck exam: ABSENT: carotid bruit, JVD, lymphadenopathy, thyromegaly Respiratory exam: PRESENT: clear to auscultation [place]. ABSENT: rales, rhonchi, wheezes Cardiovascular exam: PRESENT: tachycardia GI/Abdominal exam: PRESENT: normal bowel sounds, soft. ABSENT: distended, guarding, mass, organolmegaly, rebound, tenderness Rectal exam: PRESENT: deferred Extremities exam: PRESENT: full ROM. ABSENT: calf tenderness, clubbing, pedal edema Neurological exam: PRESENT: alert, awake, oriented to person, oriented to place, oriented to time, oriented to situation, CN II-XII grossly intact. ABSENT: motor sensory deficit Skin exam: PRESENT: dry, intact, warm. ABSENT: cyanosis, rash Results Laboratory Results: WBC 13.4 10^3/uL (4.0-10.5) H 02/19/19 05:27 RBC 3.70 10^6/uL (3.72-5.28) L 02/19/19 05:27 Hgb 11.6 g/dL (12.0-15.5) L 02/19/19 05:27 Hct 34.5 % (36.0-47.0) L 02/19/19 05:27 MCV 93 fl (80-97) 02/19/19 05:27 MCH 31.3 pg (27.0-33.4) 02/19/19 05:27 MCHC 33.5 g/dL (32.0-36.0) 02/19/19 05:27 RDW 12.7 % (11.5-14.0) 02/19/19 05:27 Plt Count 235 10^3/uL (150-450) 02/19/19 05:27 Lymph % (Auto) 6.2 % (13-45) L 02/19/19 05:27 Ward % (Auto) 2.8 % (3-13) L 02/19/19 05:27 Eos % (Auto) 0.0 % (0-6) 02/19/19 05:27 Baso % (Auto) 0.3 % (0-2) 02/19/19 05:27 Absolute Neuts (auto) 12.2 10^3/uL (1.7-8.2) H 02/19/19 05:27 Absolute Lymphs (auto) 0.8 10^3/uL (0.5-4.7) 02/19/19 05:27 Absolute Monos (auto) 0.4 10^3/uL (0.1-1.4) 02/19/19 05:27 Absolute Eos (auto) 0.0 10^3/uL (0.0-0.6) 02/19/19 05:27 Absolute Basos (auto) 0.0 10^3/uL (0.0-0.2) 02/19/19 05:27 Seg Neutrophils % 90.7 % (42-78) H 02/19/19 05:27 Sodium 139.2 mmol/L (137-145) 02/19/19 05:27 Potassium 4.2 mmol/L (3.6-5.0) 02/19/19 05:27 Chloride 106 mmol/L (98-107) 02/19/19 05:27 Carbon Dioxide 21 mmol/L (22-30) L 02/19/19 05:27 Anion Gap 12 (5-19) 02/19/19 05:27 BUN 9 mg/dL (7-20) 02/19/19 05:27 Creatinine 0.92 mg/dL (0.52-1.25) 02/19/19 05:27 Est GFR ( Amer) > 60 (>60) 02/19/19 05:27 Est GFR (MDRD) Non-Af > 60 (>60) 02/19/19 05:27 Glucose 163 mg/dL (75-110) H 02/19/19 05:27 Calcium 9.6 mg/dL (8.4-10.2) 02/19/19 05:27 Magnesium 2.0 mg/dL (1.6-2.3) 02/19/19 05:27 Total Bilirubin 0.4 mg/dL (0.2-1.3) 02/19/19 05:27 Direct Bilirubin 0.1 mg/dL (0.0-0.4) 02/19/19 05:27 Neonat Total Bilirubin Not Reportable 02/19/19 05:27 Neonat Direct Bilirubin Not Reportable 02/19/19 05:27 Neonat Indirect Bili Not Reportable 02/19/19 05:27 AST 35 U/L (14-36) 02/19/19 05:27 ALT 25 U/L (<35) 02/19/19 05:27 Alkaline Phosphatase 74 U/L (38-126) 02/19/19 05:27 Total Protein 7.7 g/dL (6.3-8.2) 02/19/19 05:27 Albumin 4.3 g/dL (3.5-5.0) 02/19/19 05:27 Triglycerides 80 mg/dL (<150) 02/19/19 05:27 Cholesterol 173.39 mg/dL (0-200) 02/19/19 05:27 LDL Cholesterol Direct 111 mg/dL (<100) H 02/19/19 05:27 VLDL Cholesterol 16.0 mg/dL (10-31) 02/19/19 05:27 HDL Cholesterol 50 mg/dL (>40) 02/19/19 05:27 TSH 0.87 uIU/mL (0.47-4.68) 02/19/19 05:27 Urine Color YELLOW 02/11/19 09:45 Urine Appearance CLOUDY 02/11/19 09:45 Urine pH 6.0 (5.0-9.0) 02/11/19 09:45 Ur Specific Turner 1.013 02/11/19 09:45 Urine Protein NEGATIVE mg/dL (NEGATIVE) 02/11/19 09:45 Urine Glucose (UA) NEGATIVE mg/dL (NEGATIVE) 02/11/19 09:45 Urine Ketones NEGATIVE mg/dL (NEGATIVE) 02/11/19 09:45 Urine Blood NEGATIVE (NEGATIVE) 02/11/19 09:45 Urine Nitrite NEGATIVE (NEGATIVE) 02/11/19 09:45 Urine Bilirubin NEGATIVE (NEGATIVE) 02/11/19 09:45 Urine Urobilinogen NEGATIVE mg/dL (<2.0) 02/11/19 09:45 Ur Leukocyte Esterase NEGATIVE (NEGATIVE) 02/11/19 09:45 Urine WBC (Auto) 12 /HPF 02/11/19 09:45 Urine RBC (Auto) 8 /HPF 02/11/19 09:45 Urine Bacteria (Auto) TRACE /HPF 02/11/19 09:45 Squamous Epi Cells Auto 27 /HPF 02/11/19 09:45 Urine Mucus (Auto) RARE /LPF 02/11/19 09:45 Urine Ascorbic Acid NEGATIVE (NEGATIVE) 02/11/19 09:45 Urine HCG, Qual NEGATIVE (NEGATIVE) 02/18/19 06:00 Blood Type O POSITIVE 02/18/19 10:47 Impressions: Chest X-Ray 02/18/19 12:37 IMPRESSION: NO ACUTE RADIOGRAPHIC FINDING IN THE CHEST. Plan Time Spent: Greater than 30 Minutes Stroke Is this a Stroke Patient?: No Acute Heart Failure - Is this a Heart Failure Patient?: No
[2019-02-19] MEDS: CYCLOBENZAPRINE HCL 10 MG TABLET PO PRN (14:27)
[2019-02-19 16:16] VITALS: BP 147/83
== END 2019-02-19 16:59 | disposition home or self-care (01) ==
LOC: OROUT 05:45 → 5 12:35
PROVIDERS: ADMIT Internal Medicine; ATTEND Internal Medicine
PROC: 01N60ZZ Release Radial Nerve, Open Approach (ICD-10-PCS; 2019-02-18)
PROC: 30233K1 Transfusion of Nonautologous Frozen Plasma into Peripheral Vein, Percutaneous Approach (ICD-10-PCS; 2019-02-18)
PROC: 0LN50ZZ Release Right Lower Arm and Wrist Tendon, Open Approach (ICD-10-PCS; principal; 2019-02-18 08:00)
DX: M65.4 Radial styloid tenosynovitis [de Quervain] (principal); G58.8 Other specified mononeuropathies; G56.31 Lesion of radial nerve, right upper limb; J95.89 Other postprocedural complications and disorders of respiratory system, not elsewhere classified; T78.3XXA Angioneurotic edema, initial encounter; T88.8XXA Other specified complications of surgical and medical care, not elsewhere classified, initial encounter; T81.89XA Other complications of procedures, not elsewhere classified, initial encounter; F41.0 Panic disorder [episodic paroxysmal anxiety]; G80.9 Cerebral palsy, unspecified; E89.0 Postprocedural hypothyroidism; G71.00 Muscular dystrophy, unspecified; R00.0 Tachycardia, unspecified; J45.990 Exercise induced bronchospasm; Z82.49 Family history of ischemic heart disease and other diseases of the circulatory system; Z87.01 Personal history of pneumonia (recurrent); Z79.899 Other long term (current) drug therapy; Z88.6 Allergy status to analgesic agent; Z88.5 Allergy status to narcotic agent; Z88.8 Allergy status to other drugs, medicaments and biological substances; Z87.892 Personal history of anaphylaxis; Z91.040 Latex allergy status
CPT/HCPCS: 93005; 86900; 86901; 36415 ×3; 36430; 83735; 84132; 84443; 85025 ×2; 81025; 80048; 80053; 81001; 80061; 71045; 93010; 01810; 25000; 64708; P9017; A9270 ×17; J2250; J3490 ×7; J1644 ×2; J0690; J1100 ×2; J1200 ×2; J3010; J2920 ×2; J0330; J2405; J7060; J7030; J2704; 1810; G0378

== ENCOUNTER → 2019-06-04 | Outpatient (CLI) | payer MEDICARE, MEDICAID ==
--- NOTE | 2019-06-04 12:40 | RADIOLOGY REPORT (SQ) ---
EXAM DESCRIPTION: KNEE LEFT 3 VIEWS COMPLETED DATE/TIME: 06/04/2019 12:26 pm REASON FOR STUDY: ACUTE PAIN OF LEFT KNEE M25.562 PAIN IN LEFT KNEE COMPARISON: None. NUMBER OF VIEWS: Three views. TECHNIQUE: AP, lateral, and sunrise patella radiographic images acquired of the left knee. LIMITATIONS: None. FINDINGS: MINERALIZATION: Normal. BONES: No acute fracture dislocation. There is patella [place] with the Insall-Salvati ratio of 1.4. P rominent osteophytes involve the lateral aspect of the patella. JOINT: Small joint effusion. SOFT TISSUES: No soft tissue swelling. No radio-opaque foreign body. OTHER: No other significant finding. IMPRESSION: 1. No evidence of acute bony abnormality. Small joint effusion. 2. Patella Lily with prominent osteophytes off the lateral aspect of the patella suggestive of wheeler lar instability. Recommend correlation with physical exam. TECHNICAL DOCUMENTATION: JOB ID: [id number] [employer]- All Rights Reserved Reading location - IP/workstation name: [email or web address]
== END ==
LOC: OD 12:12
PROVIDERS: ATTEND Nurse Practitioner Family
DX: M25.562 Pain in left knee (principal); M25.762 Osteophyte, left knee; M25.462 Effusion, left knee

== ENCOUNTER 2019-06-06 17:25 | Emergency (ER) | payer MEDICARE, MEDICAID ==
--- NOTE | 2019-06-06 19:37 | ER Document Report ---
ED Medical Screen (RME) - General Chief Complaint: Numbness of Face Stated Complaint: MOUTH NUMBNESS, PROBLEM SWALLOWING Time Seen by Provider: 06/06/19 19:23 Primary Care Provider: DEEPAK SOLIS FNP [Primary Care Provider] - Follow up as needed TRAVEL OUTSIDE OF THE [place] IN LAST 30 DAYS: No - HPI Notes: 06/06/19 19:35 33-year-old female to the emergency department with complaints of 1 week of right facial numbness along the jaw. She states that she seen her primary care physician as well as a dentist and nobody can figure out why she has this numbness. She states that her primary care physician told her that if it got a little bit worse to come into the emergency department. She states that she feels like the numbness is growing. She has a history of cerebral palsy and already has a significant speech problem and she is not quite sure if it is made her speech worse or not. She denies any fevers or chills. She denies any chest pain or shortness of breath. She states that she has recently been taking amitriptyline a little bit more regularly than she normally does. She states that she is allowed to take it every night and she will occasionally use it for sleep. In the past 2 weeks she has been using it every night. She denies any other complaints. I performed a brief medical screening exam on the patient determined she will need further evaluation and management by me inside provider. I placed initial orders to help expedite her care. - Related Data Allergies/Adverse Reactions: hydromorphone HCl [From Dilaudid] Allergy (Verified 02/18/19 05:55) ketorolac tromethamine [From Toradol] Allergy (Verified 02/18/19 05:55) promethazine HCl [From Phenergan] Allergy (Verified 02/18/19 05:55) Past Medical History - Social History Frequency of alcohol use: Occasional - Past Medical History Cardiac Medical History: Denies: Hx Coronary Artery Disease, Hx Heart Attack, Hx Hypertension Pulmonary Medical History: Reports: Hx Asthma, Hx Bronchitis, Hx Pneumonia - cerebral palsy Denies: Hx COPD Neurological Medical History: Reports: Hx Migraine. Denies: Hx Cerebrovascular Accident, Hx Seizures Endocrine Medical History: Reports: Hx Hypothyroidism Renal/ Medical History: Reports: Hx Ovarian Cysts. Denies: Hx Peritoneal Dialysis GI Medical History: Reports: Hx Irritable Bowel Musculoskeltal Medical History: Reports Hx Arthritis, Reports Hx Muscle Spasm, Reports Hx Musculoskeletal Deformity - Left leg 1 inch shorter than right Past Surgical History: Reports: Hx Abdominal Surgery, Hx Adenoidectomy, Hx Cholecystectomy, Hx Gynecologic Surgery - ovarian cyst, Hx Orthopedic Surgery, Hx Thyroid Surgery - 05/24/18, Hx Tonsillectomy. Denies: Hx Hysterectomy - Immunizations Hx Diphtheria, Pertussis, Tetanus Vaccination: Yes Physical Exam - Vital signs Vitals: Temp Pulse Resp BP Pulse Ox 98.3 F 85 16 121/82 98 06/06/19 19:16 06/06/19 19:16 06/06/19 19:16 06/06/19 19:16 06/06/19 19:16 Course - Vital Signs Vital signs: Temp Pulse Resp BP Pulse Ox 98.3 F 85 16 121/82 98 06/06/19 19:16 06/06/19 19:16 06/06/19 19:16 06/06/19 19:16 06/06/19 19:16 Doctor's Discharge - Discharge Referrals: DEEPAK SOLIS FNP [Primary Care Provider] - Follow up as needed
[2019-06-06 20:19] LABS: ABSOLUTE EOSINOPHILS # (AUTO) 0.1 10^3/uL (0.0-0.6); ABSOLUTE MONOCYTES (AUTO) 0.5 10^3/uL (0.1-1.4); ABSOLUTE NEUT (AUTO) 4.6 10^3/uL (1.7-8.2); BASOPHILS % (AUTO) 0.3 % (0-2); EOSINOPHILS % (AUTO) 1.1 % (0-6); HEMATOCRIT 37.6 % (36.0-47.0); HEMOGLOBIN 13.3 g/dL (12.0-15.5); LYMPHOCYTES % (AUTO) 36.8 % (13-45); MEAN CORPUSCULAR HEMOGLOBIN 32.4 pg (27.0-33.4); MEAN CORPUSCULAR HGB CONC 35.4 g/dL (32.0-36.0); MEAN CORPUSCULAR VOLUME 91 fl (80-97); MONOCYTES % (AUTO) 5.9 % (3-13); PLATELET COUNT 256 10^3/uL (150-450); RED BLOOD COUNT 4.12 10^6/uL (3.72-5.28); RED CELL DISTRIBUTION WIDTH 12.7 % (11.5-14.0); SEGMENTED NEUTROPHILS % (AUTO) 55.9 % (42-78); TOTAL CELLS COUNTED % (AUTO) 100 %; WHITE BLOOD COUNT 8.3 10^3/uL (4.0-10.5)
--- NOTE | 2019-06-06 20:26 | RADIOLOGY REPORT (SQ) ---
EXAM DESCRIPTION: CT head without contrast CLINICAL HISTORY: 33 years Female, facial numbness COMPARISON: None. TECHNIQUE: Axial images of the head were performed without the use of intravenous contrast, with sagittal and coronal reformatted images. This exam was performed according to our departmental dose-optimization program which includes use of Automated Exposure Control, adjustment of the mA and/or kV according to patient size and/or use of iterative reconstruction technique. FINDINGS: No evidence of acute hemorrhage or infarct. No evidence of mass or hydrocephalus. Loja/white matter differentiation is preserved. The visualized paranasal sinuses are clear. IMPRESSION: Normal head CT.
[2019-06-06 20:33] LABS: APPEARANCE,URINE SLIGHTLY-CLOUDY; BILIRUBIN,URINE NEGATIVE (NEGATIVE); COLOR,URINE YELLOW; GLUCOSE, URINE NEGATIVE (NEGATIVE); KETONES,URINE NEGATIVE (NEGATIVE); LEUKOCYTE ESTERASE,URINE NEGATIVE (NEGATIVE); NITRITE,URINE NEGATIVE (NEGATIVE); PROTEIN,URINE NEGATIVE (NEGATIVE); URINE SPECIFIC GRAVITY 1.027; UROBILINOGEN,URINE NEGATIVE mg/dL (<2.0)
[2019-06-06 20:37] LABS: BLOOD UREA NITROGEN 13 mg/dL (7-20); CALCIUM 9.5 mg/dL (8.4-10.2); CARBON DIOXIDE 27 mmol/L (22-30); CHLORIDE 102 mmol/L (98-107); GLUCOSE 79 mg/dL (75-110)
[2019-06-06 20:38] LABS: ALBUMIN 4.5 g/dL (3.5-5.0); ALKALINE PHOSPHATASE 98 U/L (38-126); ANION GAP 11 (5-19); ASPARTATE AMINO TRANSFERASE 28 U/L (14-36); BILIRUBIN,DIRECT 0.2 mg/dL (0.0-0.4); BILIRUBIN,TOTAL 0.3 mg/dL (0.2-1.3); TOTAL PROTEIN 8.1 g/dL (6.3-8.2)
--- NOTE | 2019-06-06 21:52 | ER Document Report ---
ED General - General Chief Complaint: Numbness of Face Stated Complaint: MOUTH NUMBNESS, PROBLEM SWALLOWING Time Seen by Provider: 06/06/19 19:23 Primary Care Provider: DEEPAK SOLIS FNP [Primary Care Provider] - Follow up as needed TRAVEL OUTSIDE OF THE [place] IN LAST 30 DAYS: No - HPI Notes: This is a 33-year-old female who presents complaining of right sided facial numbness, difficulty swallowing, and garbled speech for the past week. Patient states she is seen her primary care provider; PCP made a referral for the patient see the neurologist as an outpatient which she has not done yet. Patient denies chest pain, shortness of breath, nausea and vomiting, abdominal pain, difficulty walking, change in sensation or strength in her extremities. - Related Data Allergies/Adverse Reactions: hydromorphone HCl [From Dilaudid] Allergy (Verified 02/18/19 05:55) ketorolac tromethamine [From Toradol] Allergy (Verified 02/18/19 05:55) promethazine HCl [From Phenergan] Allergy (Verified 02/18/19 05:55) Past Medical History - General Information source: Patient - Social History Smoking Status: Never Smoker Frequency of alcohol use: Occasional Family History: Reviewed & Not Pertinent, Arthritis, CAD, DM, Hypertension, Malignancy, Thyroid Disfunction, Other - Uncle of an aneurysm Patient has suicidal ideation: No Patient has homicidal ideation: No - Past Medical History Cardiac Medical History: Denies: Hx Coronary Artery Disease, Hx Heart Attack, Hx Hypertension Pulmonary Medical History: Reports: Hx Asthma, Hx Bronchitis, Hx Pneumonia - cerebral palsy Denies: Hx COPD Neurological Medical History: Reports: Hx Migraine. Denies: Hx Cerebrovascular Accident, Hx Seizures Endocrine Medical History: Reports: Hx Hypothyroidism Renal/ Medical History: Reports: Hx Ovarian Cysts. Denies: Hx Peritoneal Dialysis GI Medical History: Reports: Hx Irritable Bowel Musculoskeletal Medical History: Reports Hx Arthritis, Reports Hx Muscle Spasm, Reports Hx Musculoskeletal Deformity - Left leg 1 inch shorter than right Past Surgical History: Reports: Hx Abdominal Surgery, Hx Adenoidectomy, Hx Cholecystectomy, Hx Gynecologic Surgery - ovarian cyst, Hx Orthopedic Surgery, Hx Thyroid Surgery - 05/24/18, Hx Tonsillectomy. Denies: Hx Hysterectomy - Immunizations Hx Diphtheria, Pertussis, Tetanus Vaccination: Yes Review of Systems - Review of Systems Constitutional: No symptoms reported EENT: No symptoms reported Cardiovascular: No symptoms reported Respiratory: No symptoms reported Gastrointestinal: No symptoms reported Genitourinary: No symptoms reported Female Genitourinary: No symptoms reported Musculoskeletal: No symptoms reported Skin: No symptoms reported Hematologic/Lymphatic: No symptoms reported Neurological/Psychological: See HPI -: Yes All other systems reviewed and negative Physical Exam - Vital signs Vitals: Temp Pulse Resp BP Pulse Ox 98.3 F 85 16 121/82 98 06/06/19 19:16 06/06/19 19:16 06/06/19 19:16 06/06/19 19:16 06/06/19 19:16 - Notes Notes: PHYSICAL EXAMINATION: GENERAL: Well-appearing, well-nourished and in no acute distress. HEAD: Atraumatic, normocephalic. EYES: Pupils equal round and reactive to light, extraocular movements intact, sclera anicteric, conjunctiva are normal. ENT: nares patent, oropharynx clear without exudates. Moist mucous membranes. No carotid bruits noted. NECK: Normal range of motion, supple without lymphadenopathy LUNGS: Breath sounds clear to auscultation bilaterally and equal. No wheezes rales or rhonchi. HEART: Regular rate and rhythm without murmurs ABDOMEN: Soft, nontender, normoactive bowel sounds. No guarding, no rebound. No masses appreciated. EXTREMITIES: Normal range of motion, no pitting or edema. No cyanosis. NEUROLOGICAL: Patient is able to speak but her speech does sound somewhat "thick tongued" or garbled. Despite the alteration of speech, this MD is still able to understand what the patient is seen. There is no unilateral facial droop, ptosis, tearing, or drooling. Moves all extremities spontaneously and on command. PSYCH: Normal mood, normal affect. SKIN: Warm, Dry, normal turgor, no rashes or lesions noted. Course - Re-evaluation Re-evalutation: 06/06/19 21:51 Results of ED MSE discussed with patient. All questions were answered prior to discharge. Emergency signs and symptoms, reasons to return to the emergency department discussed with patient. - Vital Signs Vital signs: Temp Pulse Resp BP Pulse Ox 98.3 F 85 16 121/82 98 06/06/19 19:16 06/06/19 19:34 06/06/19 19:34 06/06/19 19:34 06/06/19 19:34 - Laboratory Result Diagrams: 06/06/19 19:59 06/06/19 19:59 - Diagnostic Test Radiology reviewed: Reports reviewed Discharge - Discharge Clinical Impression: Facial paresthesia, Dysarthria Condition: Good Disposition: HOME, SELF-CARE Additional Instructions: Return to the Emergency Department without delay if any worse. HOME CARE INSTRUCTIONS & INFORMATION: Thank you for choosing us for your medical needs. We hope you're satisfied with the care you received. After you leave, you must properly care for your problem and, at the same time, observe its progress. Any condition can change. Some illnesses can change rapidly over hours or days. If your condition worsens, return to the Emergency Department or see your physician promptly. ABOUT YOUR X-RAYS AND EKG'S: If you had an EKG or X-rays taken, they have been read by the Emergency Physician. The X-rays and EKG's will also be read by a Radiologist or [employer] Programmer within 24 hours. If discrepancies are noted, you will be notified by telephone. Please be certain the ED has a correct telephone number & address where you can be reached. Also, realize that some fractures or abnormalities do not show up on initial X-rays. If your symptoms continue, see your physician. ABOUT YOUR LABORATORY TEST: If you had laboratory tests, the results have been reviewed by the Emergency Physician. Some test results (for example cultures) may not be available for several days. You will be contacted if any test result shows you need additional treatment. Please be certain the ED has a correct telephone number and address where you can be reached. ABOUT YOUR MEDICATIONS: You will receive instructions on how to take your medicine on the prescription label you receive. Additional information may be provided by the Pharmacy. If you have questions afterwards, call the ED for clarification or further instructions. Some prescribed medications may cause drowsiness. Do not perform tasks such as driving a car or operating machinery without consulting your Pharmacist. If you feel you need a refill of pain medication, your condition will need re-evaluation. Please do not call for a refill of any medication. ABOUT YOUR SIGNATURE: Signature of this document acknowledges to followin. Understanding that you received emergency treatment and that you may be released before al medical problems are known or treated. Please be certain the ED has a correct phone number & address where you can be reached. 2. Acknowledgement that you will arrange for follow-up care as recommended. 3. Authorization for the Emergency Physician to provide information to your follow-up Physician in order to maximize your care. AT ANY TIME, IF YOUR SYMPTOMS CHANGE SIGNIFICANTLY OR WORSEN OR YOU DEVELOP NEW SYMPTOMS, RETURN TO THE EMERGENCY DEPARTMENT IMMEDIATELY FOR RE-EVALUATION. OUR GOAL IS TO PROVIDE EXCELLENT MEDICAL CARE! WE HOPE THAT WE HAVE MET YOUR EXPECTATIONS DURING YOUR EMERGENCY DEPARTMENT VISIT AND THAT YOU FEEL YOU HAVE RECEIVED EXCELLENT CARE! Referrals: DEEPAK SOLIS FNP [Primary Care Provider] - Follow up as needed
[2019-06-06 22:36] VITALS: BP 126/82
== END 2019-06-06 22:36 | disposition home or self-care (01) ==
LOC: ER 17:25
DX: R20.0 Anesthesia of skin (principal); R47.1 Dysarthria and anarthria; R13.10 Dysphagia, unspecified; J45.909 Unspecified asthma, uncomplicated; Z88.6 Allergy status to analgesic agent; Z88.5 Allergy status to narcotic agent; Z88.8 Allergy status to other drugs, medicaments and biological substances
CPT/HCPCS: 36415; 70450; 80053; 81001; 81025; 83735; 85025; 99284

== ENCOUNTER 2019-06-11 20:17 | Emergency (ER) | payer MEDICARE, MEDICAID ==
[2019-06-11] MEDS ORDERED: NORMAL SALINE 1000 ML 1,000 ML IV ONE (21:11)
[2019-06-11] MEDS ORDERED: DEXAMETHASONE SOD PHOS INJ 10 MG/1 ML VIAL IV ONE (21:11)
--- NOTE | 2019-06-11 21:13 | ER Document Report ---
ED Medical Screen (RME) - General Chief Complaint: Sore Throat Stated Complaint: GLANDS SWOLLEN Time Seen by Provider: 06/11/19 21:06 Primary Care Provider: DEEPAK SOLIS FNP [Primary Care Provider] - Follow up as needed Notes: HPI: 33-year-old female with history of cerebral palsy sent in by her PCP for evaluation of possible peritonsillar abscess. Patient developed increasing throat pain today with difficulty swallowing. States the pain is across the entire posterior throat. No definitive fevers today but patient has been taking Tylenol for the discomfort. Also complains of a mild headache. Patient with a speech impediment I have greeted and performed a rapid initial assessment of this patient. A comprehensive ED assessment and evaluation of the patient, analysis of test results and completion of the medical decision making process will be conducted by additional ED providers PHYSICAL EXAMINATION: GENERAL: Well-appearing, well-nourished and in mild acute distress. HEAD: Atraumatic, normocephalic. EYES: sclera anicteric, conjunctiva are normal. ENT: Moist mucous membranes. NECK: Patient with no significant pharyngeal erythema no soft palate swelling uvula midline. No visible trismus. Does have tenderness in the bilateral anterior glands LUNGS: Normal work of breathing, clear to auscultation HEART: 2+ radial pulses bilaterally, regular rate and rhythm ABD: limited by positioning for exam in triage. EXTREMITIES: no pitting or edema. No cyanosis. NEUROLOGICAL: No focal neurological deficits. Moves all extremities spontaneously and on command. PSYCH: Normal mood, normal affect. SKIN: Warm, Dry, normal turgor, no rashes or lesions noted. TRAVEL OUTSIDE OF THE [place] IN LAST 30 DAYS: No - Related Data Allergies/Adverse Reactions: hydromorphone HCl [From Dilaudid] Allergy (Verified 06/11/19 21:06) ketorolac tromethamine [From Toradol] Allergy (Verified 06/11/19 21:06) promethazine HCl [From Phenergan] Allergy (Verified 06/11/19 21:06) Past Medical History - Past Medical History Cardiac Medical History: Denies: Hx Coronary Artery Disease, Hx Heart Attack, Hx Hypertension Pulmonary Medical History: Reports: Hx Asthma, Hx Bronchitis, Hx Pneumonia - cerebral palsy Denies: Hx COPD Neurological Medical History: Reports: Hx Migraine. Denies: Hx Cerebrovascular Accident, Hx Seizures Endocrine Medical History: Reports: Hx Hypothyroidism Renal/ Medical History: Reports: Hx Ovarian Cysts. Denies: Hx Peritoneal Dialysis GI Medical History: Reports: Hx Irritable Bowel Musculoskeltal Medical History: Reports Hx Arthritis, Reports Hx Muscle Spasm, Reports Hx Musculoskeletal Deformity - Left leg 1 inch shorter than right Past Surgical History: Reports: Hx Abdominal Surgery, Hx Adenoidectomy, Hx Cholecystectomy, Hx Gynecologic Surgery - ovarian cyst, Hx Orthopedic Surgery, Hx Thyroid Surgery - 05/24/18, Hx Tonsillectomy. Denies: Hx Hysterectomy - Immunizations Hx Diphtheria, Pertussis, Tetanus Vaccination: Yes Physical Exam - Vital signs Vitals: Temp Pulse Resp BP Pulse Ox 99.0 F 88 20 141/95 H 96 06/11/19 20:52 06/11/19 20:52 06/11/19 20:52 06/11/19 20:52 06/11/19 20:52 Course - Vital Signs Vital signs: Temp Pulse Resp BP Pulse Ox 99.0 F 88 20 141/95 H 96 06/11/19 20:52 06/11/19 20:52 06/11/19 20:52 06/11/19 20:52 06/11/19 20:52 Doctor's Discharge - Discharge Referrals: DEEPAK SOLIS FNP [Primary Care Provider] - Follow up as needed
[2019-06-11 22:32] LABS: ABSOLUTE BASOPHILS # (AUTO) 0.1 10^3/uL (0.0-0.2); ABSOLUTE EOSINOPHILS # (AUTO) 0.1 10^3/uL (0.0-0.6); ABSOLUTE LYMPHOCYTES (AUTO) 3.6 10^3/uL (0.5-4.7); ABSOLUTE MONOCYTES (AUTO) 0.7 10^3/uL (0.1-1.4); ABSOLUTE NEUT (AUTO) 5.3 10^3/uL (1.7-8.2); BASOPHILS % (AUTO) 0.6 % (0-2); HEMATOCRIT 38.6 % (36.0-47.0); HEMOGLOBIN 13.4 g/dL (12.0-15.5); MEAN CORPUSCULAR HEMOGLOBIN 31.9 pg (27.0-33.4); MEAN CORPUSCULAR HGB CONC 34.6 g/dL (32.0-36.0); MEAN CORPUSCULAR VOLUME 92 fl (80-97); MONOCYTES % (AUTO) 7.1 % (3-13); PLATELET COUNT 250 10^3/uL (150-450); RED BLOOD COUNT 4.18 10^6/uL (3.72-5.28); RED CELL DISTRIBUTION WIDTH 12.7 % (11.5-14.0); SEGMENTED NEUTROPHILS % (AUTO) 54.3 % (42-78); TOTAL CELLS COUNTED % (AUTO) 100 %; WHITE BLOOD COUNT 9.7 10^3/uL (4.0-10.5)
[2019-06-11 22:56] LABS: ALBUMIN 4.8 g/dL (3.5-5.0); ALKALINE PHOSPHATASE 93 U/L (38-126); ANION GAP 10 (5-19); ASPARTATE AMINO TRANSFERASE 31 U/L (14-36); BILIRUBIN,TOTAL 0.4 mg/dL (0.2-1.3); BLOOD UREA NITROGEN 17 mg/dL (7-20); CALCIUM 9.6 mg/dL (8.4-10.2); CARBON DIOXIDE 27 mmol/L (22-30); CHLORIDE 103 mmol/L (98-107); GLUCOSE 84 mg/dL (75-110); POTASSIUM 4.3 mmol/L (3.6-5.0); TOTAL PROTEIN 8.2 g/dL (6.3-8.2)
--- NOTE | 2019-06-11 23:28 | RADIOLOGY REPORT (SQ) ---
EXAM DESCRIPTION: CT NECK WITH IV CONTRAST COMPLETED DATE/TME: 06/11/2019 21:10 CLINICAL HISTORY: 33 years Female CONCERN FOR PERITONSILLAR ABSCESS. HX OF CEREBRAL PALSY. COMPARISON: None. TECHNIQUE: Contiguous axial images obtained through the neck with IV contrast. Reformatted images obtained. This exam was performed according to our department optimization program which includes automated exposure control, adjustment of the mA and/or kv according to patient size and/or use of iterative reconstruction technique. FINDINGS: The parotid glands, submandibular glands and thyroid gland appear unremarkable. The palatine tonsils appear either absent or within normal limits. No paravertebral or retropharyngeal fluid or fluid collection is noted. Minimal mucosal thickening in the nasopharynx with symmetric areas of low attenuation adjacent to the fossa of Rosenmuller bilaterally. Developing microabscesses thought unlikely as it is symmetric. Scattered small jugulodigastric lymph nodes and a small amount of stranding is present along the left neck of uncertain clinical significance. IMPRESSION: There is prominence of the mucosa in the nasopharynx Compared to previous examinations which may reflect infectious or inflammatory process A discrete or drainable abscess is not noted. Symmetric areas of fluid attenuation are present bilaterally. Developing microabscesses versus thought unlikely although not entirely excluded There is a small amount of nonspecific stranding along the soft tissues over the left neck also of uncertain origin Small scattered likely reactive cervical lymph nodes
[2019-06-12] MEDS ORDERED: CLINDAMYCIN HCL 150 MG CAPSULE PO ONE (03:29)
[2019-06-12] MEDS ORDERED: DEXAMETHASONE SOD PHOS INJ 10 MG/1 ML VIAL IV ONE (03:29)
--- NOTE | 2019-06-12 03:32 | ER Document Report ---
ED ENT - General Chief Complaint: Sore Throat Stated Complaint: GLANDS SWOLLEN Time Seen by Provider: 06/11/19 21:06 Primary Care Provider: DEEPAK SOLIS FNP [Primary Care Provider] - Follow up as needed Notes: Patient is a 33-year-old female that comes emergency department for chief complaint of worsening sore throat and swelling along the lymph nodes of her neck since yesterday. Patient was sent here by her primary care provider for evaluation of possible peritonsillar abscess. Patient reports increasing throat pain today with painful swallowing, patient has not had a fever today but she is also been taking Tylenol. Patient has a speech impediment with cerebral palsy. TRAVEL OUTSIDE OF THE [place] IN LAST 30 DAYS: No - Related Data Allergies/Adverse Reactions: hydromorphone HCl [From Dilaudid] Allergy (Verified 06/11/19 21:06) ketorolac tromethamine [From Toradol] Allergy (Verified 06/11/19 21:06) promethazine HCl [From Phenergan] Allergy (Verified 06/11/19 21:06) Past Medical History - General Information source: Patient - Social History Smoking Status: Never Smoker Frequency of alcohol use: None Drug Abuse: None Lives with: Family Family History: Reviewed & Not Pertinent, Arthritis, CAD, DM, Hypertension, Ma lignancy, Thyroid Disfunction, Other - Uncle of an aneurysm Patient has suicidal ideation: No Patient has homicidal ideation: No - Past Medical History Cardiac Medical History: Denies: Hx Coronary Artery Disease, Hx Heart Attack, Hx Hypertension Pulmonary Medical History: Reports: Hx Asthma, Hx Bronchitis, Hx Pneumonia - cerebral palsy Denies: Hx COPD Neurological Medical History: Reports: Hx Migraine. Denies: Hx Cerebrovascular Accident, Hx Seizures Endocrine Medical History: Reports: Hx Hypothyroidism Renal/ Medical History: Reports: Hx Ovarian Cysts. Denies: Hx Peritoneal Dialysis GI Medical History: Reports: Hx Irritable Bowel Musculoskeletal Medical History: Reports Hx Arthritis, Reports Hx Muscle Spasm, Reports Hx Musculoskeletal Deformity - Left leg 1 inch shorter than right Past Surgical History: Reports: Hx Abdominal Surgery, Hx Adenoidectomy, Hx Cholecystectomy, Hx Gynecologic Surgery - ovarian cyst, Hx Orthopedic Surgery, Hx Thyroid Surgery - 05/24/18, Hx Tonsillectomy. Denies: Hx Hysterectomy - Immunizations Hx Diphtheria, Pertussis, Tetanus Vaccination: Yes Review of Systems - Review of Systems Constitutional: See HPI EENT: See HPI Cardiovascular: No symptoms reported Respiratory: No symptoms reported Gastrointestinal: No symptoms reported Genitourinary: No symptoms reported Female Genitourinary: No symptoms reported Musculoskeletal: No symptoms reported Skin: No symptoms reported Hematologic/Lymphatic: No symptoms reported Neurological/Psychological: No symptoms reported Physical Exam - Vital signs Vitals: Temp Pulse Resp BP Pulse Ox 99.0 F 88 20 141/95 H 96 06/11/19 20:52 06/11/19 20:52 06/11/19 20:52 06/11/19 20:52 06/11/19 20:52 - Notes Notes: GENERAL: Alert, interacts well. No acute distress. HEAD: Normocephalic, atraumatic. EYES: Pupils equal, round, and reactive to light. Extraocular movements intact. ENT: Oral mucosa moist, tongue midline. Erythema the posterior pharynx without concerning appearing tonsils, normal uvula, airway patent. Nares patent, no nasal septal hematoma, TM's intact. NECK: Full range of motion. Supple. Trachea midline. Bilateral anterior cervical adenopathy, no swelling of the face or neck. LUNGS: Clear to auscultation bilaterally, no wheezes, rales, or rhonchi. No respiratory distress. HEART: Regular rate and rhythm. No murmur ABDOMEN: Soft, non-tender. Non-distended. Bowel sounds present in all 4 quadrants. GENITOURINARY: Deferred EXTREMITIES: Moves all 4 extremities spontaneously. No edema, normal radial and dorsalis pedis pulses bilaterally. No cyanosis. BACK: no cervical, thoracic, lumbar midline tenderness. No saddle anesthesia, normal distal neurovascular exam. Moves all extremities in full range of motion. NEUROLOGICAL: Alert and oriented x3. Speech impediment. Cranial nerves II through XII grossly intact. PSYCH: Normal affect, normal mood. SKIN: Warm, dry, normal turgor. No rashes or lesions noted. Course - Re-evaluation Re-evalutation: Patient has erythema of the posterior pharynx but no concerning findings suggesting peritonsillar abscess. She does have anterior cervical adenopathy but no evidence of Chance's angina. She is not in distress, she has no fever or concerning vital signs. CBC, chemistry unremarkable, strep and mono were both negative. Soft tissue neck CT showing some inflammation below the nasopharynx, lymphadenopathy, but no overt abscess or concerning finding. Possible stranding over the neck but this is not evidenced on exam, there is no cellulitis, just adenopathy. Overall exam is consistent with pharyngitis and adenopathy but no concerning findings otherwise. Patient given dexamethasone, clindamycin, she tolerated p.o. without any difficulty. Discussed treatment, culture of the throat, follow-up, and return precautions. Patient states understanding and agreement. Stable at time of discharge. - Vital Signs Vital signs: Temp Pulse Resp BP Pulse Ox 99.1 F 89 17 121/87 H 96 06/12/19 04:35 06/12/19 04:35 06/12/19 04:35 06/12/19 04:35 06/12/19 04:35 - Laboratory Result Diagrams: 06/11/19 22:10 06/11/19 22:10 Discharge - Discharge Clinical Impression: Anterior cervical adenopathy, Chills Pharyngitis Qualifiers: Pharyngitis/tonsillitis etiology: unspecified etiology Qualified Code(s): J02.9 - Acute pharyngitis, unspecified Condition: Stable Disposition: HOME, SELF-CARE Additional Instructions: Your imaging does show inflammation of the pharynx and swelling of your lymph nodes as discussed. We have throat cultures pending. No abscess is seen. Take antibiotics as prescribed, take [id number] medications for pain, drink plenty of fluids and rest. Symptoms should gradually resolve. Return if you worsen in any way including difficulty breathing or swallowing, spiking fever, or any other concerning or worsening symptoms. Prescriptions: Clindamycin HCl 300 mg PO TID 10 Days #30 capsule Referrals: DEEPAK SOLIS FNP [Primary Care Provider] - Follow up as needed
[2019-06-12 04:38] VITALS: BP 121/87
== END 2019-06-12 04:34 | disposition home or self-care (01) ==
LOC: ER 20:17
DX: J02.9 Acute pharyngitis, unspecified (principal); R59.0 Localized enlarged lymph nodes; R68.83 Chills (without fever); Z88.8 Allergy status to other drugs, medicaments and biological substances
CPT/HCPCS: 96376; 99283; 96361; 96374; 36415; 87070; 87880; 85025; 86308; 80053; 70491; A9270; J7030; J1100 ×2

== ENCOUNTER 2019-06-20 09:18 | Day surgery (SDC) | payer MEDICARE, MEDICAID ==
[~2019-06-20 09:18] MED LIST changes: -CEFAZOLIN SODIUM 2 GM in DEXTROSE 5%-WATER 100 ML IV PRN; -LACTATED RINGERS 1000 ML IV PRN; +PROPOFOL INJ 200 MG/20 ML VIAL IV ONE
[2019-06-20] MEDS: DIPHENHYDRAMINE HCL 50 MG/ML VIAL ONE ×2 (10:41→10:47)
[2019-06-20] MEDS ORDERED: RINGERS SOLUTION,LACTATED 1,000 ML IV PRN (10:59)
[2019-06-20] MEDS ORDERED: SIMETHICONE 80 MG TAB.CHEW ONE (12:08)
--- NOTE | 2019-06-20 12:12 | Operative Report ---
Operative Report DATE OF SURGERY: 06/20/19 Operative Report: The risks benefits and alternatives of the procedure explained to the patient in detail and informed consent is obtained.A GIF Olympus video scope was inserted into the patient's mouth and hypopharynx, the esophagus is identified intubated and insufflated, the scope was then advanced through the esophagus stomach and duodenum ,retroflexion maneuver is done ,the esophagus stomach and first and second portions of the duodenum examined PREOPERATIVE DIAGNOSIS: Epigastric pain POSTOPERATIVE DIAGNOSIS: Floyd classification grade a esophagitis. Gastritis nodular; biopsies obtained OPERATION: EGD with biopsy SURGEON: SOFÍA LUNA ANESTHESIA: LMAC TISSUE REMOVED OR ALTERED: As noted above. COMPLICATIONS: None. ESTIMATED BLOOD LOSS: None. INTRAOPERATIVE FINDINGS: As noted above. PROCEDURE: Patient tolerated the procedure well. No immediate postprocedure complications are noted. Patient is discharged in good condition. Discharge date 06/20/2019. Discharge diet: Regular. Discharge activity: Regular. 2 to 3-week follow-up to discuss findings. Patient is instructed to call the office or proceed to the emergency room should there be any further problems or questions. Wait on the pathology.
[2019-06-20 14:15] VITALS: BP 122/78
== END 2019-06-20 12:30 | disposition home or self-care (01) ==
LOC: END 09:18
PROVIDERS: ATTEND Internal Medicine Gastroenterology
DX: K29.50 Unspecified chronic gastritis without bleeding (principal); K20.8 Other esophagitis; E05.00 Thyrotoxicosis with diffuse goiter without thyrotoxic crisis or storm; E89.0 Postprocedural hypothyroidism; J45.909 Unspecified asthma, uncomplicated; G80.9 Cerebral palsy, unspecified
CPT/HCPCS: 43239; 88305 ×2; 00731; J1200; A9270; J2704; 731

== ENCOUNTER 2019-06-29 09:53 | Emergency (ER) | payer MEDICARE, MEDICAID ==
--- NOTE | 2019-06-29 10:27 | ER Document Report ---
ED Medical Screen (RME) - General Chief Complaint: Headache Stated Complaint: HEADACHE,FACIAL NUMBNESS Time Seen by Provider: 06/29/19 10:18 Primary Care Provider: AYE BOYD DO [Primary Care Provider] - Follow up as needed Information source: Patient Notes: Patient presents complaining of headache pain off and on since April. Patient states that the pain is worsened for the past 4 days. Patient complains of pain to the occipital area of the head. Patient reports right facial numbness for the past month. Patient does complain of dizziness as well. Patient denies any nausea or vomiting. hx: Cerebral palsy, angioedema I have greeted and performed a rapid initial assessment of this patient. A comprehensive ED assessment and evaluation of the patient, analysis of test res ults and completion of the medical decision making process will be conducted by additional ED providers. TRAVEL OUTSIDE OF THE [place] IN LAST 30 DAYS: No - Related Data Allergies/Adverse Reactions: hydromorphone HCl [From Dilaudid] Allergy (Severe, Verified 06/29/19 10:16) promethazine HCl [From Phenergan] Allergy (Severe, Verified 06/29/19 10:16) ketorolac tromethamine [From Toradol] Allergy (Intermediate, Verified 06/29/19 10:16) Past Medical History - Social History Chew tobacco use (# tins/day): No Frequency of alcohol use: Occasional Drug Abuse: None - Past Medical History Cardiac Medical History: Denies: Hx Coronary Artery Disease, Hx Heart Attack, Hx Hypertension Pulmonary Medical History: Reports: Hx Asthma - exercise induced, Hx Bronchitis Denies: Hx COPD, Hx Pneumonia - cerebral palsy Neurological Medical History: Reports: Hx Migraine. Denies: Hx Cerebrovascular Accident, Hx Seizures Endocrine Medical History: Reports: Hx Hypothyroidism Renal/ Medical History: Reports: Hx Ovarian Cysts. Denies: Hx Peritoneal Dialysis GI Medical History: Reports: Hx Irritable Bowel Musculoskeltal Medical History: Reports Hx Arthritis, Reports Hx Muscle Spasm, Reports Hx Musculoskeletal Deformity - Left leg 1 inch shorter than right Past Surgical History: Reports: Hx Abdominal Surgery, Hx Adenoidectomy, Hx Cholecystectomy, Hx Gynecologic Surgery - ovarian cyst, Hx Orthopedic Surgery, Hx Thyroid Surgery - 05/24/18, Hx Tonsillectomy. Denies: Hx Hysterectomy - Immunizations Hx Diphtheria, Pertussis, Tetanus Vaccination: Yes Physical Exam - Vital signs Vitals: Temp Pulse Resp BP Pulse Ox 98.1 F 82 16 134/92 H 94 06/29/19 10:05 06/29/19 10:05 06/29/19 10:05 06/29/19 10:05 06/29/19 10:05 - General General appearance: Appears well, Alert Notes: Right side facial numbness, symmetric movement of the face, slurred speech which is at patient's baseline due to cerebral palsy Course - Vital Signs Vital signs: Temp Pulse Resp BP Pulse Ox 98.1 F 82 16 134/92 H 94 06/29/19 10:05 06/29/19 10:05 06/29/19 10:05 06/29/19 10:05 06/29/19 10:05 Doctor's Discharge - Discharge Referrals: AYE BOYD DO [Primary Care Provider] - Follow up as needed
[2019-06-29 10:52] LABS: ABSOLUTE BASOPHILS # (AUTO) 0.1 10^3/uL (0.0-0.2); ABSOLUTE EOSINOPHILS # (AUTO) 0.1 10^3/uL (0.0-0.6); ABSOLUTE LYMPHOCYTES (AUTO) 2.3 10^3/uL (0.5-4.7); ABSOLUTE MONOCYTES (AUTO) 0.5 10^3/uL (0.1-1.4); ABSOLUTE NEUT (AUTO) 5.8 10^3/uL (1.7-8.2); BASOPHILS % (AUTO) 0.6 % (0-2); EOSINOPHILS % (AUTO) 0.6 % (0-6); HEMATOCRIT 39.2 % (36.0-47.0); HEMOGLOBIN 13.5 g/dL (12.0-15.5); LYMPHOCYTES % (AUTO) 26.3 % (13-45); MEAN CORPUSCULAR HEMOGLOBIN 31.8 pg (27.0-33.4); MEAN CORPUSCULAR HGB CONC 34.5 g/dL (32.0-36.0); MEAN CORPUSCULAR VOLUME 92 fl (80-97); MONOCYTES % (AUTO) 5.5 % (3-13); PLATELET COUNT 248 10^3/uL (150-450); RED BLOOD COUNT 4.25 10^6/uL (3.72-5.28); RED CELL DISTRIBUTION WIDTH 12.8 % (11.5-14.0); TOTAL CELLS COUNTED % (AUTO) 100 %; WHITE BLOOD COUNT 8.7 10^3/uL (4.0-10.5)
[2019-06-29 11:10] LABS: ANION GAP 13 (5-19); BLOOD UREA NITROGEN 15 mg/dL (7-20); CALCIUM 9.3 mg/dL (8.4-10.2); CARBON DIOXIDE 25 mmol/L (22-30); CHLORIDE 103 mmol/L (98-107); GLUCOSE 84 mg/dL (75-110)
--- NOTE | 2019-06-29 11:56 | EKG REPORT ---
SEVERITY:- NORMAL ECG - SINUS RHYTHM : Confirmed by: Kamron Stroud 29-Jun-2019 11:55:58
--- NOTE | 2019-06-29 12:30 | RADIOLOGY REPORT (SQ) ---
EXAM DESCRIPTION: CT HEAD WITHOUT COMPLETED DATE/TIME: 06/29/2019 11:16 am REASON FOR STUDY: HURTADO, facial numbness. COMPARISON: CT head, 06/06/2019. TECHNIQUE: Axial images acquired through the brain without intravenous contrast. Images reviewed wi th bone, brain and subdural windows. Images stored on PACS. All CT scanners at this facility use dose modulation, iterative reconstruction, and/or weight based d osing when appropriate to reduce radiation dose to as low as reasonably achievable (ALARA). [facility]: Dose Right [facility]: CareDose [facility]: Dose Right [facility]: Teradose 4D [facility]: [employer] RADIATION DOSE: CT Rad equipment meets quality standard of care and radiation dose reduction techniq ues were employed. CTDIvol: 53.2 mGy. DLP: 991 mGy-cm. mGy. LIMITATIONS: None. FINDINGS: VENTRICLES: Normal size and contour. CEREBRUM: No masses. No hemorrhage. No midline shift. No evidence for acute infarction. Normal gra y/white matter differentiation. No areas of low density in the white matter. CEREBELLUM: No masses. No hemorrhage. No alteration of density. No evidence for acute infarction. EXTRAAXIAL SPACES: No fluid collections. No masses. ORBITS AND GLOBE: No intra- or extraconal masses. Normal contour of globe without masses. CALVARIUM: No fracture. PARANASAL SINUSES: No fluid or mucosal thickening. SOFT TISSUES: No mass or hematoma. OTHER: No other significant finding. IMPRESSION: No acute intracranial hemorrhage, mass, or evidence of acute territorial infarct. EVIDENCE OF ACUTE STROKE: NO. COMMENT: Quality ID # [id number]: Final reports with documentation of one or more dose reduction techniques (e.g., Automated exposure control, adjustment of the mA and/or kV according to patient size, use of iterative reconstruction technique) TECHNICAL DOCUMENTATION: JOB ID: [id number] 2010 [employer]- All Rights Reserved Reading location - IP/workstation name: [email or web address]
[2019-06-29] MEDS ORDERED: DIPHENHYDRAMINE HCL 50 MG/ML VIAL IV ONE (12:50)
[2019-06-29] MEDS ORDERED: METOCLOPRAMIDE HCL INJ/PF 10 MG/2 ML SDV IV ONE ×2 (12:50→12:57)
[2019-06-29 13:55] VITALS: BP 125/85
--- NOTE | 2019-06-29 14:27 | ER Document Report ---
Entered by BHUPINDER ZAMORANO SCRIBE 06/29/19 1237 Acting as scribe for:JUDIT CLEARY MD ED Headache - General Chief Complaint: Headache Stated Complaint: HEADACHE,FACIAL NUMBNESS Time Seen by Provider: 06/29/19 10:18 Primary Care Provider: AYE BOYD DO [Primary Care Provider] - Follow up in 3-5 days Mode of Arrival: Ambulatory Information source: Patient Notes: This 33 year old female patient presents to the emergency department today with complaints of a migraine headache for the last x4 days with associated blurry vision and right sided mouth numbness. Patient has been seen and worked up for migraine headaches multiple times in this emergency department. Patient adds that she went to a neurologist but he "refused to see her because she was on pain medication". Patient states that she went to an eye doctor and got glasses thinking that her vision may be causing the headaches. Patient states she got new glasses but this did not help her headaches. Patient states she only gets blurry vision if she has a headache. The facial numbness that the patient mentions has been present for over x1 month. TRAVEL OUTSIDE OF THE [place] IN LAST 30 DAYS: No - Related Data Allergies/Adverse Reactions: hydromorphone HCl [From Dilaudid] Allergy (Severe, Verified 06/29/19 10:16) promethazine HCl [From Phenergan] Allergy (Severe, Verified 06/29/19 10:16) ketorolac tromethamine [From Toradol] Allergy (Intermediate, Verified 06/29/19 10:16) Past Medical History - General Information source: Patient - Social History Smoking Status: Never Smoker Cigarette use (# per day): No Chew tobacco use (# tins/day): No Frequency of alcohol use: Occasional Drug Abuse: None Lives with: Family Family History: Reviewed & Not Pertinent, Arthritis, CAD, DM, Hypertension, Malignancy, Thyroid Disfunction, Other - Uncle of an aneurysm Patient has suicidal ideation: No Patient has homicidal ideation: No Pulmonary Medical History: Reports: Hx Asthma - exercise induced, Hx Bronchitis Neurological Medical History: Reports: Hx Migraine Endocrine Medical History: Reports: Hx Hypothyroidism Renal/ Medical History: Reports: Hx Ovarian Cysts GI Medical History: Reports: Hx Irritable Bowel Musculoskeletal Medical History: Reports Hx Arthritis, Reports Hx Muscle Spasm, Reports Hx Musculoskeletal Deformity - Left leg 1 inch shorter than right Past Surgical History: Reports: Hx Abdominal Surgery, Hx Adenoidectomy, Hx Cholecystectomy, Hx Gynecologic Surgery - ovarian cyst, Hx Orthopedic Surgery, Hx Thyroid Surgery - 05/24/18, Hx Tonsillectomy. Denies: Hx Hysterectomy - Immunizations Hx Diphtheria, Pertussis, Tetanus Vaccination: Yes Review of Systems - Review of Systems Constitutional: No symptoms reported EENT: See HPI, Blurred vision Cardiovascular: No symptoms reported Respiratory: No symptoms reported Gastrointestinal: No symptoms reported Genitourinary: No symptoms reported Female Genitourinary: No symptoms reported Musculoskeletal: No symptoms reported Skin: No symptoms reported Hematologic/Lymphatic: No symptoms reported Neurological/Psychological: See HPI, Headaches, Numbness - right side of mouth -: Yes All other systems reviewed and negative Physical Exam - Vital signs Vitals: Temp Pulse Resp BP Pulse Ox 98.1 F 82 16 134/92 H 94 06/29/19 10:05 06/29/19 10:05 06/29/19 10:05 06/29/19 10:05 06/29/19 10:05 Interpretation: Normal - General General appearance: Appears well, Alert - HEENT Head: Normocephalic, Atraumatic, Other - right sided occipital scalp is tender with palpation Eyes: Normal Pupils: PERRL - Respiratory Respiratory status: No respiratory distress Chest status: Nontender Breath sounds: Normal Chest palpation: Normal - Cardiovascular Rhythm: Regular Heart sounds: Normal auscultation Murmur: No - Abdominal Inspection: Normal Distension: No distension Bowel sounds: Normal Tenderness: Nontender Organomegaly: No organomegaly - Back Back: Normal, Nontender - Extremities General upper extremity: Normal inspection, Nontender, Normal color, Normal ROM, Normal temperature General lower extremity: Normal inspection, Nontender, Normal color, Normal ROM, Normal temperature, Normal weight bearing. No: Drew's sign - Neurological Neuro grossly intact: Yes Cognition: Normal Orientation: AAOx4 [place] Coma Scale Eye Opening: Spontaneous [place] Coma Scale Verbal: Oriented [place] Coma Scale Motor: Obeys Commands [place] Coma Scale Total: 15 Speech: Other - slurred speech at baseline Sensory: Normal - Psychological Associated symptoms: Normal affect, Normal mood - Skin Skin Temperature: Warm Skin Moisture: Dry Skin Color: Normal Course - Re-evaluation Re-evalutation: 06/29/19 12:57 The patient reports that her Phenergan allergy is that it makes her throw up. She reports Toradol closes her throat. On 12/09/2018 she received Benadryl and Compazine IV for a right occipital headache. The documentation stated that it improved her headache. She admits that it helped her headache go away for 1 day and then it came back. She also states the Compazine made her nauseous but she held everything down so she would not throw up at that time. She did have a CT scan of the head done that was ordered at triage and it is unremarkable. Also appears she had a head CT done about 3 weeks ago that was normal. It appears these were done due to her complaint of numbness to her right face and mouth area. She has seen a dentist for this. She has also seen an blanker operator and got glasses but it is unclear if the glasses helped any. She was referred to a neurologist but states the neurologist would not see her because she is on chronic pain management. - Vital Signs Vital signs: Temp Pulse Resp BP Pulse Ox 97.4 F 82 20 125/85 100 06/29/19 13:54 06/29/19 10:05 06/29/19 13:54 06/29/19 13:54 06/29/19 13:54 - Laboratory Result Diagrams: 06/29/19 10:36 06/29/19 10:36 - Diagnostic Test Radiology reviewed: Image reviewed, Reports reviewed - CT scan of the head is unremarkable. - EKG Interpretation by Me EKG shows normal: Sinus rhythm, [place], Intervals, QRS Complexes, ST-T Waves Rate: Normal - 75 Rhythm: NSR Discharge - Discharge Clinical Impression: Recurrent occipital headache, Numbness and tingling of right side of face Condition: Stable Disposition: HOME, SELF-CARE Additional Instructions: Headache: The physician does not feel that the headache you are experiencing has a serious underlying cause. Most headaches are due to emotional stress, with resultant muscle tension (tension headache). Occasionally, headaches are secondary to changes in the blood vessels of the scalp (vascular headache and migraine headache). Sometimes, a headache is the first symptom of another developing illness, such as a viral infection. You have no evidence of stroke, bleeding, meningitis, or other serious cause of your headache. The treatment of headaches varies with the severity and cause of the pain. Not all headaches need pain shots. In fact, there is evidence that using narcotics for headaches may make them worse in the long run. The physician will determine the therapy that's in your best interest. If you develop a fever, if the headache is different from any you've previously experienced, or if the headache progressively worsens, then call your physician at once or go to the emergency room. Try taking Benadryl along with the Reglan that is prescribed today when you get a bad headache. Be sure to drink plenty of fluids and get plenty of rest. Follow-up with your primary care provider this week for further evaluation of your facial numbness. He may want to schedule you for an outpatient MRI of your brain. RETURN TO THE EMERGENCY ROOM IF ANY NEW OR WORSENING SYMPTOMS. Prescriptions: Metoclopramide HCl [Reglan 10 mg Tablet] 10 mg PO ASDIR PRN #15 tablet PRN Reason: Referrals: AYE BOYD DO [Primary Care Provider] - Follow up in 3-5 days I personally performed the services described in the documentation, reviewed and edited the documentation which was dictated to the scribe in my presence, and it accurately records my words and actions.
== END 2019-06-29 14:42 | disposition home or self-care (01) ==
LOC: ER 09:53
DX: R51 Headache (principal); R20.0 Anesthesia of skin; H53.8 Other visual disturbances; Z88.8 Allergy status to other drugs, medicaments and biological substances; J45.909 Unspecified asthma, uncomplicated
CPT/HCPCS: 93005; 99284; 96374; 96375; 36415; 84703; 85025; 80048; 70450; 93010; J1200; J2765

== ENCOUNTER → 2019-07-11 | Outpatient (CLI) | payer MEDICARE, MEDICAID ==
--- NOTE | 2019-07-11 12:55 | RADIOLOGY REPORT (SQ) ---
EXAM DESCRIPTION: KNEE RIGHT 4 VIEWS COMPLETED DATE/TIME: 07/11/2019 12:41 pm REASON FOR STUDY: INJURY OF RT KNEE S89.91XA UNSPECIFIED INJURY OF RIGHT LOWER LEG, INITIAL ENCO COMPARISON: None. NUMBER OF VIEWS: Four views. TECHNIQUE: AP, lateral, and both oblique radiographic images acquired of the right knee. LIMITATIONS: None. FINDINGS: MINERALIZATION: Normal. BONES: No acute fracture or dislocation. No worrisome bone lesions. Sclerotic focus within the ante rior tibia, likely bone island. JOINT: No effusion. SOFT TISSUES: No soft tissue swelling. No radio-opaque foreign body. OTHER: Patella rufus with Insall-Salvati ratio of 1.3. IMPRESSION: No evidence of acute bony abnormality. Borderline Patella Rufus. TECHNICAL DOCUMENTATION: JOB ID: [id number] 2010 [employer]- All Rights Reserved Reading location - IP/workstation name: [email or web address]
== END ==
LOC: OD 12:24
PROVIDERS: ATTEND Family Medicine
DX: S89.91XA Unspecified injury of right lower leg, initial encounter (principal); X58.XXXA Exposure to other specified factors, initial encounter

== ENCOUNTER 2019-07-12 11:39 | Emergency (ER) | payer MEDICARE, MEDICAID ==
--- NOTE | 2019-07-12 11:55 | ER Document Report ---
ED Medical Screen (RME) - General Chief Complaint: Numbness of Face Stated Complaint: HEAD PAIN/JAW NUMBNESS Time Seen by Provider: 07/12/19 11:49 Primary Care Provider: AYE BOYD DO [Primary Care Provider] - Follow up as needed Notes: HPI: 33-year-old female with cerebral palsy history presenting to the emergency department again for right-sided headache with facial numbness. Has had ongoing symptoms since March 2019. Patient reports when the pain gets bad she seems to have more difficulty swallowing. Has not had a fever. States she has seen her technical training instructor and PCP for this issue. Patient has been seen in the emergency department multiple times for this problem as well had a negative head CT as recently as June 29, 2019. Patient states she has an MRI scheduled in 3 days but states the pain was worse today I have greeted and performed a rapid initial assessment of this patient. A comprehensive ED assessment and evaluation of the patient, analysis of test results and completion of the medical decision making process will be conducted by additional ED providers PHYSICAL EXAMINATION: GENERAL: Well-appearing, well-nourished and in mild acute distress. HEAD: Atraumatic, normocephalic. Minimal tenderness on palpation of the right posterior scalp EYES: sclera anicteric, conjunctiva are normal. ENT: Moist mucous membranes. NECK: Normal range of motion LUNGS: Normal work of breathing HEART: 2+ radial pulses bilaterally ABD: limited by positioning for exam in triage. EXTREMITIES: no pitting or edema. No cyanosis. NEUROLOGICAL: Moves all extremities spontaneously and on command. Alert and oriented x3 PSYCH: Normal mood, normal affect. SKIN: Warm, Dry, normal turgor, no rashes or lesions noted. TRAVEL OUTSIDE OF THE [place] IN LAST 30 DAYS: No - Related Data Allergies/Adverse Reactions: hydromorphone HCl [From Dilaudid] Allergy (Severe, Verified 07/12/19 11:47) promethazine HCl [From Phenergan] Allergy (Severe, Verified 07/12/19 11:47) ketorolac tromethamine [From Toradol] Allergy (Intermediate, Verified 07/12/19 11:47) Past Medical History - Social History Chew tobacco use (# tins/day): No Frequency of alcohol use: None Drug Abuse: None - Past Medical History Cardiac Medical History: Denies: Hx Coronary Artery Disease, Hx Heart Attack, Hx Hypertension Pulmonary Medical History: Reports: Hx Asthma - exercise induced, Hx Bronchitis Denies: Hx COPD, Hx Pneumonia - cerebral palsy Neurological Medical History: Reports: Hx Migraine. Denies: Hx Cerebrovascular Accident, Hx Seizures Endocrine Medical History: Reports: Hx Hypothyroidism Renal/ Medical History: Reports: Hx Ovarian Cysts. Denies: Hx Peritoneal Dialysis GI Medical History: Reports: Hx Irritable Bowel Musculoskeltal Medical History: Reports Hx Arthritis, Reports Hx Muscle Spasm, Reports Hx Musculoskeletal Deformity - Left leg 1 inch shorter than right Past Surgical History: Reports: Hx Abdominal Surgery, Hx Adenoidectomy, Hx Cholecystectomy, Hx Gynecologic Surgery - ovarian cyst, Hx Orthopedic Surgery, Hx Thyroid Surgery - 05/24/18, Hx Tonsillectomy. Denies: Hx Hysterectomy - Immunizations Hx Diphtheria, Pertussis, Tetanus Vaccination: Yes Physical Exam - Vital signs Vitals: Temp Pulse Resp BP Pulse Ox 98.1 F 93 18 124/91 H 100 07/12/19 11:45 07/12/19 11:45 07/12/19 11:45 07/12/19 11:45 07/12/19 11:45 Course - Vital Signs Vital signs: Temp Pulse Resp BP Pulse Ox 98.1 F 93 18 124/91 H 100 07/12/19 11:45 07/12/19 11:45 07/12/19 11:45 07/12/19 11:45 07/12/19 11:45 Doctor's Discharge - Discharge Referrals: AYE BOYD DO [Primary Care Provider] - Follow up as needed
[2019-07-12 12:49] LABS: ALBUMIN 4.4 g/dL (3.5-5.0); ALKALINE PHOSPHATASE 90 U/L (38-126); ANION GAP 9 (5-19); ASPARTATE AMINO TRANSFERASE 28 U/L (14-36); BILIRUBIN,DIRECT 0.1 mg/dL (0.0-0.4); BILIRUBIN,TOTAL 0.5 mg/dL (0.2-1.3); BLOOD UREA NITROGEN 15 mg/dL (7-20); CALCIUM 9.4 mg/dL (8.4-10.2); CARBON DIOXIDE 27 mmol/L (22-30); CHLORIDE 103 mmol/L (98-107); GLUCOSE 82 mg/dL (75-110); POTASSIUM 4.5 mmol/L (3.6-5.0); TOTAL PROTEIN 7.8 g/dL (6.3-8.2)
[2019-07-12 13:12] LABS: ABSOLUTE EOSINOPHILS # (AUTO) 0.1 10^3/uL (0.0-0.6); ABSOLUTE LYMPHOCYTES (AUTO) 2.1 10^3/uL (0.5-4.7); ABSOLUTE MONOCYTES (AUTO) 0.5 10^3/uL (0.1-1.4); ABSOLUTE NEUT (AUTO) 4.6 10^3/uL (1.7-8.2); BASOPHILS % (AUTO) 0.5 % (0-2); EOSINOPHILS % (AUTO) 1.1 % (0-6); HEMATOCRIT 38.2 % (36.0-47.0); HEMOGLOBIN 12.9 g/dL (12.0-15.5); MEAN CORPUSCULAR HEMOGLOBIN 31.5 pg (27.0-33.4); MEAN CORPUSCULAR HGB CONC 33.9 g/dL (32.0-36.0); MEAN CORPUSCULAR VOLUME 93 fl (80-97); MONOCYTES % (AUTO) 7.4 % (3-13); PLATELET COUNT 260 10^3/uL (150-450); RED BLOOD COUNT 4.11 10^6/uL (3.72-5.28); RED CELL DISTRIBUTION WIDTH 13.3 % (11.5-14.0); TOTAL CELLS COUNTED % (AUTO) 100 %; WHITE BLOOD COUNT 7.4 10^3/uL (4.0-10.5)
--- NOTE | 2019-07-12 15:30 | ER Document Report ---
ED Headache - General Chief Complaint: Numbness of Face Stated Complaint: HEAD PAIN/JAW NUMBNESS Time Seen by Provider: 07/12/19 14:40 Primary Care Provider: AYE BOYD DO [Primary Care Provider] - Follow up as needed Notes: Patient presents complaining of headache off and on since March 2019 to the occipital scalp area. Patient states that she has seen her primary doctor her dentist and her application processor for this problem. Patient states that she does have an MRI scheduled in 3 days although the pain worsened today which prompted her visit. Patient denies any head injury. Patient does report nausea vomiting x1 episode today. Patient denies any fever. Patient states that occasionally her vision will blur but it is normal at this time. Patient states headache pain is not typical of migraines that she has had in the past. Patient complains of pain only to the occipital area and no temporal pain at this time. TRAVEL OUTSIDE OF THE [place] IN LAST 30 DAYS: No - HPI Patient complains to provider of: Headache Patient reports: Frequent migraines Onset: Other - March 2019 Onset was: Gradual Timing: Worse Quality of pain: Pressure Pain Level: 4 Associated symptoms: Double/blurred vision, Nausea/vomiting Exacerbated by: denies: Light, Noise Similar symptoms previously: Yes Recently seen / treated by doctor: Yes - Related Data Allergies/Adverse Reactions: hydromorphone HCl [From Dilaudid] Allergy (Severe, Verified 07/12/19 11:47) promethazine HCl [From Phenergan] Allergy (Severe, Verified 07/12/19 11:47) ketorolac tromethamine [From Toradol] Allergy (Intermediate, Verified 07/12/19 11:47) Past Medical History - General Information source: Patient - Social History Smoking Status: Never Smoker Chew tobacco use (# tins/day): No Frequency of alcohol use: None Drug Abuse: None Lives with: Family Family History: Reviewed & Not Pertinent, Arthritis, CAD, DM, Hypertension, Malignancy, Thyroid Disfunction, Other - Uncle of an aneurysm Patient has suicidal ideation: No Patient has homicidal ideation: No - Medical History Medical History: Other - cerebral palsy Pulmonary Medical History: Reports: Hx Asthma - exercise induced, Hx Bronchitis Denies: Hx COPD, Hx Pneumonia - cerebral palsy Neurological Medical History: Reports: Hx Migraine Endocrine Medical History: Reports: Hx Hypothyroidism Renal/ Medical History: Reports: Hx Ovarian Cysts GI Medical History: Reports: Hx Irritable Bowel Musculoskeletal Medical History: Reports Hx Arthritis, Reports Hx Muscle Spasm, Reports Hx Musculoskeletal Deformity - Left leg 1 inch shorter than right Past Surgical History: Reports: Hx Abdominal Surgery, Hx Adenoidectomy, Hx Cholecystectomy, Hx Gynecologic Surgery - ovarian cyst, Hx Orthopedic Surgery, Hx Thyroid Surgery - 05/24/18, Hx Tonsillectomy. Denies: Hx Hysterectomy - Immunizations Hx Diphtheria, Pertussis, Tetanus Vaccination: Yes Review of Systems - Review of Systems Constitutional: No symptoms reported. denies: Fever, Recent illness EENT: Blurred vision Cardiovascular: No symptoms reported Respiratory: No symptoms reported. denies: Cough Gastrointestinal: Nausea, Vomiting. denies: Abdominal pain Genitourinary: No symptoms reported Female Genitourinary: No symptoms reported Musculoskeletal: No symptoms reported. denies: Back pain, Neck pain Skin: No symptoms reported. denies: Rash Hematologic/Lymphatic: No symptoms reported Neurological/Psychological: Headaches. denies: Weakness Physical Exam - Vital signs Vitals: Temp Pulse Resp BP Pulse Ox 98.1 F 93 18 124/91 H 100 07/12/19 11:45 07/12/19 11:45 07/12/19 11:45 07/12/19 11:45 07/12/19 11:45 - General General appearance: Appears well, Alert In distress: None - HEENT Head: Normocephalic, Atraumatic. No: Abrasions, [place]'s eyes, Tenderness Eyes: Normal Conjunctiva: Normal Extraocular movements intact: Yes Pupils: PERRL Ears: Normal External canal: Normal Nasal: Normal Mouth/Lips: Normal Neck: Normal, Supple. No: Meningismus - Respiratory Respiratory status: No respiratory distress Chest status: Nontender Breath sounds: Normal Chest palpation: Normal - Cardiovascular Rhythm: Regular Heart sounds: S1 appreciated, S2 appreciated - Abdominal Inspection: Normal Distension: No distension Tenderness: Nontender - Back Back: Normal. No: Vertebra tenderness - Extremities General upper extremity: Normal inspection General lower extremity: Normal inspection - Neurological Neuro grossly intact: Yes Cognition: Normal [place] Coma Scale Eye Opening: Spontaneous [place] Coma Scale Verbal: Oriented [place] Coma Scale Motor: Obeys Commands [place] Coma Scale Total: 15 Speech: Dysarthria - per pt's baseline - Psychological Associated symptoms: Normal affect, Normal mood - Skin Skin Temperature: Warm Skin Moisture: Dry Skin Color: Normal Course - Re-evaluation Re-evalutation: 07/12/19 18:46 Patient reports some modest improvement of headache pain with use of muscle relaxer. Patient MRI report reviewed, no acute findings. The patient presents with headache without signs of PROJECT CONTROL ANALYST bleed, stroke, infection, or other serious etiology. The patient is at her neurologic baseline. Given the extremely low r isk of these diagnoses further testing and evaluation for these possibilities does not appear to be indicated at this time. The patient has been instructed to return if the symptoms worsen or change in any way. - Vital Signs Vital signs: Temp Pulse Resp BP Pulse Ox 98.1 F 93 18 124/91 H 100 07/12/19 11:45 07/12/19 11:45 07/12/19 11:45 07/12/19 11:45 07/12/19 11:45 - Laboratory Result Diagrams: 07/12/19 12:05 07/12/19 12:05 - Diagnostic Test Radiology reviewed: Reports reviewed Discharge - Discharge Clinical Impression: Headache Qualifiers: Headache type: unspecified Headache chronicity pattern: unspecified pattern Intractability: not intractable Qualified Code(s): R51 - Headache Condition: Stable Disposition: HOME, SELF-CARE Instructions: Headache ([facility]), Tension Headache ([facility]) Additional Instructions: Return immediately for any new or worsening symptoms Followup with your primary care provider, call tomorrow to make a followup appointment Prescriptions: Lidocaine [Lidoderm 5% (700 mg) Transdermal Patch] 1 patch TP DAILY PRN #10 adh..patch PRN Reason: Methocarbamol [Robaxin 500 Mg Tablet] 500 mg PO QID PRN #20 tablet PRN Reason: Referrals: AYE BOYD DO [Primary Care Provider] - Follow up as needed
[2019-07-12] MEDS ORDERED: METHOCARBAMOL 500 MG TABLET PO ONE (15:31)
[2019-07-12] MEDS ORDERED: ACETAMINOPHEN 325 MG TABLET PO ONE (15:31)
[2019-07-12] MEDS ORDERED: ONDANSETRON 4 MG TAB.RAPDIS PO ONE (15:35)
[2019-07-12] MEDS ORDERED: ALPRAZOLAM 0.5 MG TABLET PO ONE (16:08)
--- NOTE | 2019-07-12 17:58 | RADIOLOGY REPORT (SQ) ---
EXAM DESCRIPTION: MRI HEAD COMBO COMPLETED DATE/TIME: 07/12/2019 4:14 pm REASON FOR STUDY: HURTADO, blurred vision, hx CP facial numbness. Worsening headache, jaw pain and facia l weakness. COMPARISON: CT head 06/29/2019 TECHNIQUE: Multiplanar imaging includes noncontrasted T1, T2, FLAIR, diffusion with ADC map and post gadolinium contrast T1 sequences. Images stored on PACS. CONTRAST TYPE AND DOSE: 10 mL dotarem. RENAL FUNCTION: Not indicated. ACR Type II contrast agent associated with few, if any, unconfounded cases of NSF LIMITATIONS: None. FINDINGS: ANATOMY: No anomalies. Normal vascular flow voids. Pituitary fossa normal. CSF SPACES: Normal in size and contour. No hemorrhage. CEREBRUM: Sulci and gyri normal in size and contour. Normal white matter signal on FLAIR imaging. No evidence of hemorrhage, mass, or extraaxial fluid collection. No abnormal enhancement post contrast. POSTERIOR FOSSA: No signal alteration. No hemorrhage. No edema, masses, or mass effect. Internal misael tory canals, cerebellopontine angles, mastoids normal. No enhancing lesions. No abnormal enhancement post contrast. DIFFUSION IMAGING: Negative for acute or subacute infarction. ORBITS: No masses. Globes normal. PARANASAL SINUSES: No fluid levels. Mucosa normal. OTHER: No other significant finding. IMPRESSION: NORMAL MRI OF THE BRAIN WITHOUT AND WITH INTRAVENOUS GADOLINIUM CONTRAST. EVIDENCE OF ACUTE STROKE: NO. TECHNICAL DOCUMENTATION: JOB ID: [id number] [employer]- All Rights Reserved Reading location - IP/workstation name: [email or web address]
[2019-07-12 19:38] VITALS: BP 107/68
== END 2019-07-12 19:36 | disposition home or self-care (01) ==
LOC: ER 11:39
DX: R51 Headache (principal); R11.2 Nausea with vomiting, unspecified; H53.8 Other visual disturbances; J45.909 Unspecified asthma, uncomplicated; Z86.69 Personal history of other diseases of the nervous system and sense organs; Z88.6 Allergy status to analgesic agent; Z88.5 Allergy status to narcotic agent; Z88.8 Allergy status to other drugs, medicaments and biological substances
CPT/HCPCS: 99284; 36415; 85025; 80053; 70553; A9576; A9270 ×4; S0119

== ENCOUNTER → 2019-07-15 | Outpatient (CLI) | payer MEDICARE, MEDICAID ==
--- NOTE | 2019-07-15 16:16 | RADIOLOGY REPORT (SQ) ---
EXAM DESCRIPTION: MRI LT LOWER JOINT WITHOUT COMPLETED DATE/TIME: 07/15/2019 10:06 am REASON FOR STUDY: UNSPECIFIED INTERNAL DERANGEMENT OF LEFT KNEE G44.52 NEW DAILY PERSISTENT HEADACH E (NDPH) M23.92 UNSPECIFIED INTERNAL DERANGEMENT OF LEFT KNEE COMPARISON: None. TECHNIQUE: Leftknee images acquired and stored on PACS. Multiplanar images include fat sensitive se quences as T1, water sensitive sequences as FST2 or STIR, cartilage sensitive sequences as FSPD, and gradient echo sequences. LIMITATIONS: Motion. FINDINGS: JOINT AND BURSAE: No effusion. BONE CORTEX AND MARROW: No alteration of signal to suggest marrow replacement. No worrisome bone lesi ons. No occult fracture. ACL: Intact. No degeneration or ganglion cyst. PCL: Intact. MCL: Intact. No periligamentous edema or fluid. LCL: Intact. No periligamentous edema or fluid. MEDIAL MENISCUS: Increased T2 signal posterior horn without extension to the articular surface. LATERAL MENISCUS: No tears. No abnormal signal. MEDIAL COMPARTMENT: Cartilage preserved. No bone bruises or reactive marrow edema. No osteophytes. LATERAL COMPARTMENT: Cartilage preserved. No bone bruises or reactive marrow edema. No osteophytes. PATELLA: High riding patella with lateral tilt. Cartilage thinning with mild subchondral cyst format ion along the lateral margin. Inflammation in Hoffa's fat pad adjacent to the inferolateral margin o f the patella. EXTENSOR MECHANISM: Intact. Quadriceps and patella tendons normal. SOFT TISSUES: Adjacent muscles and subcutaneous tissues normal. Normal flow void in popliteal artery and vein. OTHER: No other significant finding. 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 TECHNICAL DOCUMENTATION: JOB ID: [id number] 2010 [employer]- All Rights Reserved Reading location - IP/workstation name: [email or web address]
== END ==
LOC: RAD 09:08
PROVIDERS: ATTEND Nurse Practitioner Family
DX: M23.92 Unspecified internal derangement of left knee (principal); M22.42 Chondromalacia patellae, left knee

== ENCOUNTER 2020-02-13 09:49 | Emergency (ER) | payer MEDICARE, MEDICAID ==
[2020-02-13 09:56] VITALS: BP 125/94
--- NOTE | 2020-02-13 10:21 | ER Document Report ---
ED Medical Screen (RME) - General Chief Complaint: Leg Pain Stated Complaint: LEG PAIN Time Seen by Provider: 02/13/20 10:13 Information source: Patient Notes: Patient presents complaining of generalized weakness. Right leg pain for the past 2 days. Patient denies any fever. Patient reports having flulike symptoms 2 days ago. Patient states that she has had sore throat pain. I have greeted and performed a rapid initial assessment of this patient. A comprehensive ED assessment and evaluation of the patient, analysis of test results and completion of the medical decision making process will be conducted by additional ED providers. TRAVEL OUTSIDE OF THE [place] IN LAST 30 DAYS: No - Related Data Allergies/Adverse Reactions: hydromorphone HCl [From Dilaudid] Allergy (Severe, Verified 02/13/20 10:23) promethazine HCl [From Phenergan] Allergy (Severe, Verified 02/13/20 10:23) ketorolac tromethamine [From Toradol] Allergy (Intermediate, Verified 02/13/20 10:23) Past Medical History - Past Medical History Cardiac Medical History: Denies: Hx Coronary Artery Disease, Hx Heart Attack, Hx Hypertension Pulmonary Medical History: Reports: Hx Asthma - exercise induced, Hx Bronchitis Denies: Hx COPD, Hx Pneumonia - cerebral palsy Neurological Medical History: Reports: Hx Migraine. Denies: Hx Cerebrovascular Accident, Hx Seizures Endocrine Medical History: Reports: Hx Hypothyroidism Renal/ Medical History: Reports: Hx Ovarian Cysts. Denies: Hx Peritoneal Dialysis GI Medical History: Reports: Hx Irritable Bowel Musculoskeltal Medical History: Reports Hx Arthritis, Reports Hx Muscle Spasm, Reports Hx Musculoskeletal Deformity - Left leg 1 inch shorter than right Past Surgical History: Reports: Hx Abdominal Surgery, Hx Adenoidectomy, Hx Cholecystectomy, Hx Gynecologic Surgery - ovarian cyst, Hx Orthopedic Surgery, Hx Thyroid Surgery - 05/24/18, Hx Tonsillectomy. Denies: Hx Hysterectomy - Immunizations Hx Diphtheria, Pertussis, Tetanus Vaccination: Yes Physical Exam - Vital signs Vitals: Temp Pulse Resp BP Pulse Ox 98.8 F 81 18 125/94 H 100 02/13/20 09:55 02/13/20 09:55 02/13/20 09:55 02/13/20 09:55 02/13/20 09:55 - General General appearance: Appears well, Alert Notes: No angioedema, patient able to manage oral secretions. Tenderness to right lower extremity Course - Vital Signs Vital signs: Temp Pulse Resp BP Pulse Ox 98.8 F 81 18 125/94 H 100 02/13/20 09:55 02/13/20 09:55 02/13/20 09:55 02/13/20 09:55 02/13/20 09:55 - Laboratory Result Diagrams: 02/13/20 10:30 02/13/20 10:30 Laboratory results interpreted by me: 02/13/20 10:30 AST 83 H ALT 36 H Creatine Kinase 4675 H Total Protein 8.4 H
[2020-02-13 11:01] LABS: ABSOLUTE EOSINOPHILS # (AUTO) 0.1 10^3/uL (0.0-0.6); ABSOLUTE LYMPHOCYTES (AUTO) 2.8 10^3/uL (0.5-4.7); ABSOLUTE MONOCYTES (AUTO) 0.5 10^3/uL (0.1-1.4); ABSOLUTE NEUT (AUTO) 4.3 10^3/uL (1.7-8.2); BASOPHILS % (AUTO) 0.3 % (0-2); EOSINOPHILS % (AUTO) 0.9 % (0-6); HEMATOCRIT 39.2 % (36.0-47.0); HEMOGLOBIN 13.8 g/dL (12.0-15.5); LYMPHOCYTES % (AUTO) 36.9 % (13-45); MEAN CORPUSCULAR HEMOGLOBIN 32.8 pg (27.0-33.4); MEAN CORPUSCULAR HGB CONC 35.3 g/dL (32.0-36.0); MEAN CORPUSCULAR VOLUME 93 fl (80-97); MONOCYTES % (AUTO) 6.2 % (3-13); PLATELET COUNT 252 10^3/uL (150-450); RED BLOOD COUNT 4.22 10^6/uL (3.72-5.28); RED CELL DISTRIBUTION WIDTH 13.3 % (11.5-14.0); SEGMENTED NEUTROPHILS % (AUTO) 55.7 % (42-78); TOTAL CELLS COUNTED % (AUTO) 100 %; WHITE BLOOD COUNT 7.7 10^3/uL (4.0-10.5)
[2020-02-13 11:13] LABS: ALBUMIN 4.9 g/dL (3.5-5.0); ALKALINE PHOSPHATASE 99 U/L (38-126); ANION GAP 12 (5-19); ASPARTATE AMINO TRANSFERASE 83 U/L (14-36); BILIRUBIN,DIRECT 0.2 mg/dL (0.0-0.4); BILIRUBIN,TOTAL 0.5 mg/dL (0.2-1.3); BLOOD UREA NITROGEN 14 mg/dL (7-20); CALCIUM 9.3 mg/dL (8.4-10.2); CARBON DIOXIDE 26 mmol/L (22-30); CHLORIDE 102 mmol/L (98-107); GLUCOSE 88 mg/dL (75-110); POTASSIUM 4.4 mmol/L (3.6-5.0); TOTAL PROTEIN 8.4 g/dL (6.3-8.2)
--- NOTE | 2020-02-13 11:18 | RADIOLOGY REPORT (SQ) ---
EXAM DESCRIPTION: SOFT TISSUE NECK IMAGES COMPLETED DATE/TIME: 02/13/2020 10:49 am REASON FOR STUDY: throat pain, swelling COMPARISON: CT soft tissue neck 06/11/2019 NUMBER OF VIEWS: Two views. TECHNIQUE: AP and lateral radiographic image of the soft tissues of the neck. LIMITATIONS: None. FINDINGS: EPIGLOTTIS: Normal. Contour normal. Aryepiglottic folds normal. PREVERTEBRAL SOFT TISSUES: Normal. No soft tissue swelling. SUBGLOTTIC AREA: Normal. No narrowing. RETROPHARYNGEAL SPACE: Normal. No soft tissue masses. BONES: No significant findings. LUNG APICES: Normal. OTHER: There are surgical clips in the neck soft tissues post thyroidectomy. IMPRESSION: Surgical clips post thyroidectomy. Otherwise unremarkable study TECHNICAL DOCUMENTATION: JOB ID: [id number] [employer]- All Rights Reserved Reading location - IP/workstation name: [email or web address]
[2020-02-13 11:42] LABS: CREATINE KINASE 4675 U/L (30-135)
[2020-02-13] MEDS ORDERED: DANTROLENE SODIUM INJ 20 MG VIAL IV ONE (12:40)
[2020-02-13] MEDS ORDERED: CONTAINER EMPTY IV ONE (14:00)
[2020-02-13] MEDS ORDERED: DANTROLENE SODIUM IV ONE (14:00)
--- NOTE | 2020-02-13 16:13 | ER Document Report ---
ED General - General Chief Complaint: Leg Pain Stated Complaint: LEG PAIN Time Seen by Provider: 02/13/20 10:13 Primary Care Provider: AYE BOYD DO [Primary Care Provider] - Follow up as needed Notes: This 34-year-old woman presents to the emergency department with a history of right leg stiffness and difficulty swallowing. Patient has a history of cerebral palsy. States that the symptoms came on this morning when she woke up. She has not had this type symptoms before and is having some difficulty walking . She was able to drive herself to the hospital and walking with the leg in an fully extended position. Apparently she has had a episode in the past with numbness in the right side of her face, she has been seen by neurology at a clinic in [place]. Lives independently without assistance, works a full-time job and has been exercising on a regular basis to keep her weight down. TRAVEL OUTSIDE OF THE [place] IN LAST 30 DAYS: No - Related Data Allergies/Adverse Reactions: hydromorphone HCl [From Dilaudid] Allergy (Severe, Verified 02/13/20 10:23) promethazine HCl [From Phenergan] Allergy (Severe, Verified 02/13/20 10:23) ketorolac tromethamine [From Toradol] Allergy (Intermediate, Verified 02/13/20 10:23) Past Medical History - General Information source: Patient - Social History Smoking Status: Never Smoker Chew tobacco use (# tins/day): No Frequency of alcohol use: None Drug Abuse: None Family History: Reviewed & Not Pertinent, Arthritis, CAD, DM, Hypertension, Malignancy, Thyroid Disfunction, Other - Uncle of an aneurysm Patient has homicidal ideation: No - Past Medical History Cardiac Medical History: Denies: Hx Coronary Artery Disease, Hx Heart Attack, Hx Hypertension Pulmonary Medical History: Reports: Hx Asthma - exercise induced, Hx Bronchitis Denies: Hx COPD, Hx Pneumonia - cerebral palsy Neurological Medical History: Reports: Hx Migraine. Denies: Hx Cerebrovascular Accident, Hx Seizures Endocrine Medical History: Reports: Hx Hypothyroidism Renal/ Medical History: Reports: Hx Ovarian Cysts. Denies: Hx Peritoneal Dialysis GI Medical History: Reports: Hx Irritable Bowel Musculoskeletal Medical History: Reports Hx Arthritis, Reports Hx Muscle Spasm, Reports Hx Musculoskeletal Deformity - Left leg 1 inch shorter than right Past Surgical History: Reports: Hx Abdominal Surgery, Hx Adenoidectomy, Hx Cholecystectomy, Hx Gynecologic Surgery - ovarian cyst, Hx Orthopedic Surgery, Hx Thyroid Surgery - 05/24/18, Hx Tonsillectomy. Denies: Hx Hysterectomy - Immunizations Hx Diphtheria, Pertussis, Tetanus Vaccination: Yes Review of Systems - Review of Systems Notes: Constitutional: Negative for fever. HENT: Negative for sore throat. Eyes: Negative for visual changes. Cardiovascular: Negative for chest pain. Respiratory: Negative for shortness of breath. Gastrointestinal: Negative for abdominal pain, vomiting or diarrhea. Genitourinary: Negative for dysuria. Musculoskeletal: Negative for back pain. Skin: Negative for rash. Neurological: See HPI 10 point ROS negative except as marked above and in HPI. Physical Exam - Vital signs Vitals: Temp Pulse Resp BP Pulse Ox 98.8 F 81 18 125/94 H 100 02/13/20 09:55 02/13/20 09:55 02/13/20 09:55 02/13/20 09:55 02/13/20 09:55 - Notes Notes: PHYSICAL EXAMINATION: Physical Exam: General: Pleasant 34-year-old woman with history of cerebral palsy HEENT: NC/AT, pupils equal round and reactive to light, MM moist,nares clear, oropharynx clear, airway patent Neck: supple, no adenopathy, no masses. Good range of motion Lungs: clear, no wheezing, no rales no rhonchi CVS: Regular rate and rhythm no murmur gallop or rub Abdomen: Soft, active, nontender, no masses, no hepatosplenomegaly Ext: No edema, clubbing or cyanosis. 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 Skin: Intact no open lesions, no rash PSYCH: Normal mood, normal affect. Course - Re-evaluation Re-evalutation: 02/13/20 16:56 Patient was given dantrolene 60 mg IV for hypertonia of the right lower extremit y. The patient had some improvement after receiving the medication after an initial complaint of feeling dizzy and fatigued. She had been on baclofen in the past and states that the baclofen caused her to get sick on her stomach and so that was discontinued. She has allergies to hydromorphone and Phenergan and Toradol. She has been followed by a neurologist in the past. Presently is not seeing anyone. I have explained to the patient that her symptoms may be recurrent or possibly worsening in the future and having a neurologist involved would be very important. She acknowledges understanding of this and is accepting of a referral to the neurology service. I explained that the referral may need to come from her primary doctor, however I will give her the name of a neurologist before she is discharged. Patient is also requesting a coronavirus test as her workplace is requiring her to get a coronavirus test due to the changes which occurred at work today. - Vital Signs Vital signs: Temp Pulse Resp BP Pulse Ox 98.8 F 81 18 125/94 H 100 02/13/20 09:55 02/13/20 09:55 02/13/20 09:55 02/13/20 09:55 02/13/20 09:55 - Laboratory Result Diagrams: 02/13/20 10:30 02/13/20 10:30 Laboratory results interpreted by me: 02/13/20 10:30 AST 83 H ALT 36 H Creatine Kinase 4675 H Total Protein 8.4 H - Diagnostic Test Radiology reviewed: Image reviewed, Reports reviewed Radiology results interpreted by me: 02/13/20 17:02 Soft tissue neck x-ray no acute findings. Discharge - Discharge Clinical Impression: Transient hypertonia, Right leg pain, Suspected 2019 novel coronavirus infection Cerebral palsy Qualifiers: Cerebral palsy type: unspecified type Qualified Code(s): G80.9 - Cerebral palsy, unspecified Condition: Good Disposition: HOME, SELF-CARE Instructions: COVID-19 Guidance for Persons Under Investigation Additional Instructions: You were seen in the emergency department with neurologic symptoms which may be related to you cerebral palsy. It is important for you to follow-up with a neurologist and to begin a therapy to prevent transient episodes of spastic hypertonia. A coronavirus test was performed in the emergency department today you will need to self quarantine until you receive the results of the testing. If you develop symptoms with worsening shortness of breath or other difficulties may return to the emergency department for further evaluation and treatment. HOME CARE INSTRUCTIONS & INFORMATION: Thank you for choosing us for your medical needs. We hope you're satisfied with the care you received. After you leave, you must properly care for your problem and, at the same time, observe its progress. Any condition can change. Some illnesses can change rapidly over hours or days. If your condition worsens, return to the Emergency Department or see your physician promptly. ABOUT YOUR X-RAYS AND EKG'S: If you had an EKG or X-rays taken, they have been read by the Emergency Physician. The X-rays and EKG's will also be read by a Radiologist or Nurses' Aide within 24 hours. If discrepancies are noted, you will be notified by telephone. Please be certain the ED has a correct telephone number & address where you can be reached. Also, realize that some fractures or abnormalities do not show up on initial X-rays. If your symptoms continue, see your physician. ABOUT YOUR LABORATORY TEST: If you had laboratory tests, the results have been reviewed by the Emergency Physician. Some test results (for example cultures) may not be available for several days. You will be contacted if any test result shows you need additional treatment. Please be certain the ED has a correct telephone number and address where you can be reached. ABOUT YOUR MEDICATIONS: You will receive instructions on how to take your medicine on the prescription label you receive. Additional information may be provided by the Pharmacy. If you have questions afterwards, call the ED for cla rification or further instructions. Some prescribed medications may cause drowsiness. Do not perform tasks such as driving a car or operating machinery without consulting your Pharmacist. If you feel you need a refill of pain medication, your condition will need re-evaluation. Please do not call for a refill of any medication. ABOUT YOUR SIGNATURE: Signature of this document acknowledges to followin. Understanding that you received emergency treatment and that you may be released before al medical problems are known or treated. Please be certain the ED has a correct phone number & address where you can be reached. 2. Acknowledgement that you will arrange for follow-up care as recommended. 3. Authorization for the Emergency Physician to provide information to your follow-up Physician in order to maximize your care. AT ANY TIME, IF YOUR SYMPTOMS CHANGE SIGNIFICANTLY OR WORSEN OR YOU DEVELOP NEW SYMPTOMS, RETURN TO THE EMERGENCY DEPARTMENT IMMEDIATELY FOR RE-EVALUATION. OUR GOAL IS TO PROVIDE EXCELLENT MEDICAL CARE! WE HOPE THAT WE HAVE MET YOUR EXPECTATIONS DURING YOUR EMERGENCY DEPARTMENT VISIT AND THAT YOU FEEL YOU HAVE RECEIVED EXCELLENT CARE! Referrals: AYE BOYD, [Primary Care Provider] - Follow up as needed
== END 2020-02-13 17:40 | disposition home or self-care (01) ==
LOC: ER 09:49
DX: G80.9 Cerebral palsy, unspecified (principal); R13.10 Dysphagia, unspecified; R26.2 Difficulty in walking, not elsewhere classified; M79.604 Pain in right leg; R47.81 Slurred speech; R42 Dizziness and giddiness; R53.83 Other fatigue; E89.0 Postprocedural hypothyroidism; J45.909 Unspecified asthma, uncomplicated; Z88.6 Allergy status to analgesic agent; Z88.5 Allergy status to narcotic agent; Z88.8 Allergy status to other drugs, medicaments and biological substances; Z20.828 Contact with and (suspected) exposure to other viral communicable diseases
CPT/HCPCS: 99284; 96365; 36415; 87070; 87880; 82550; 85025; 80053; 70360; U0003; J3490; A9270; C9803; 87635

== ENCOUNTER → 2020-02-16 | Outpatient (CLI) | payer MEDICARE, MEDICAID ==
--- NOTE | 2020-02-16 14:14 | RADIOLOGY REPORT (SQ) ---
EXAM DESCRIPTION: VENOUS UNILATERAL LOWER IMAGES COMPLETED DATE/TIME: 02/16/2020 2:05 pm REASON FOR STUDY: RLE PAIN M79.661 PAIN IN RIGHT LOWER LEG COMPARISON: None. TECHNIQUE: Dynamic and static de santiago scale and color images acquired of the right leg venous system. S elected spectral images acquired with additional compression and augmentation maneuvers. The contrala teral common femoral vein and saphenofemoral junction were also imaged. Images stored on PACS. LIMITATIONS: None. FINDINGS: COMMON FEMORAL: Normal phasicity, compression and augmentation. No visualized echogenic ma terial on de santiago scale. No defects on color images. FEMORAL: Normal compression and augmentation. No visualized echogenic material on de santiago scale. No defe cts on color images. POPLITEAL: Normal compression, augmentation. No visualized echogenic material on de santiago scale. No defec ts on color images. CALF VESSELS: Normal compression, augmentation. No visualized echogenic material on de santiago scale. No de fects on color images. GSV and SSV: Normal compression, augmentation. No visualized echogenic material on de santiago scale. No def ects on color images. ANY DEEP VENOUS INSUFFICIENCY: Not evaluated. ANY EVIDENCE OF POPLITEAL CYST: No. OTHER: No other significant finding. CONTRALATERAL COMMON FEMORAL VEIN AND SAPHENOFEMORAL JUNCTION: Normal phasicity, compression and augmentation. No visualized echogenic material on de santiago scale. No de fects on color images. IMPRESSION: NO EVIDENCE DVT OR SVT IN THE RIGHT LEG. TECHNICAL DOCUMENTATION: JOB ID: [id number] 2010 [employer]- All Rights Reserved Reading location - IP/workstation name: [email or web address]
== END ==
LOC: SP 12:53
PROVIDERS: ATTEND Nurse Practitioner Family
DX: M79.661 Pain in right lower leg (principal)
CPT/HCPCS: 93971

== ENCOUNTER 2020-05-04 08:49 | Day surgery (SDC) | payer MEDICARE, MEDICAID ==
[~2020-05-04 08:49] MED LIST changes: +CEFAZOLIN 2 GM/D5W RTU 2 GM/50 ML RTUPB IV ONE; +CEFAZOLIN 2 GM/D5W RTU 2 GM/50 ML RTUPB IV PRN; +FENTANYL CITRATE INJ/PF 100 MCG/2 ML AMPUL ONE; +MIDAZOLAM 2 MG/2 ML INJ ONE; +SUGAMMADEX SODIUM 200 MG/2 ML SDV IV ONE
[2020-05-04] MEDS ORDERED: LIDOCAINE 1% INJ-PF (10 MG/ML) 30 ML SDV ONE (09:28)
[2020-05-04] MEDS ORDERED: MINERAL OIL (STERILE) 10 ML VIAL ONE (09:28)
[2020-05-04] MEDS ORDERED: TRIAMCINOLONE ACETONIDE INJ 40 MG/1 ML VIAL ONE (09:28)
[2020-05-04] MEDS ORDERED: LIDOCAINE 2%/EPINEPHRINE INJ 1.7 ML CARTRIDGE ONE ×2 (09:28→14:35)
[2020-05-04] MEDS ORDERED: COCAINE HCL 4% TOPICAL SOLN 4 ML ONE (09:29)
[2020-05-04] MEDS ORDERED: MEPERIDINE HCL/PF INJ 25 MG/1 ML DISP.SYRIN IV PRN (11:14)
[2020-05-04] MEDS ORDERED: FENTANYL CITRATE INJ/PF 100 MCG/2 ML AMPUL IV PRN ×3 (11:14)
[2020-05-04] MEDS ORDERED: ONDANSETRON HCL INJ/PF 4 MG/2 ML SDV IV PRN (11:14)
[2020-05-04] MEDS ORDERED: MORPHINE SULFATE 10 MG/ML INJ IV PRN (11:14)
[2020-05-04] MEDS ORDERED: DIPHENHYDRAMINE HCL 50 MG/ML VIAL IV PRN (11:14)
--- NOTE | 2020-05-04 12:42 | Operative Report ---
Operative Report-[facility] Operative Report: Date: 04 May 2020 History: 34-year-old female presents with a history of nasal dyspnea. Physical exam revealed a deviated nasal septum, bilateral nasal vestibular stenosis and inferior turbinate hypertrophy. Presents today for a septoplasty, repair nasal vestibular stenosis and turbinate reduction Pre-operative diagnosis: 1. Deviated nasal septum 2. Inferior turbinate hypertrophy, bilateral 3. Bilateral nasal vestibular stenosis Post operative diagnosis: same as above. Procedure: 1. Nasal septoplasty [CPT: 85038] 2. Inferior turbinate reduction, right side [CPT: 15971] 3 . Inferior turbinate reduction, left side [CPT: 66937] 4. Repair nasal vestibular stenosis, right side (CPT: 03457) 5. Repair nasal vestibular stenosis, left side (CPT: 07300) Surgeon: Diego Arnett MD, [facility] Anesthia: MERARY Description of the procedure: After receiving informed consent, the patient was brought to the operating room and placed supine on the operating table. After successful induction and intubation by anesthesia, cottonoids soaked with 4% cocaine replaced into each nasal cavity for approximately five minutes. They were removed andthe septum along with the inferior turbinate were injected with 2% Xylocaine with 1:100,000 epinephrine. The cottonoids were replaced. The patient was then prepped and draped in a sterile fashion. The cottonoids where then removed. A number 15 blade was used to make a татьяна transfixtion incision on the left side. Next using a Franco and then A Cee elevator, a mucoperichondrial/mucoperiosteal flap was elevated back to the sphenoid rostrum. This was then elevated onto the nasal floor. A mucoperichondrial flap was elevated around the caudal edge of the septum and onto the right side. This exposed both sides of the cartilaginous septum. The osseocartilaginous junction was and a mucoperiosteal flap was elevated on the right side. Mahan scissors were used to make horizontal cuts in the perpendicular plate of the ethmoid bone, superiorly and inferiorly. Jorje-Cabrera forceps were used to remove this. A v omeroethmoid spur was identified and the mucosa was carefully dissected from it. A V-chisel was used to remove this spur. An inferior cartilage spur was removed using a D knife . Maxillary crest spur was removed using a V chisel. Ovando-Garcia's were used to remove a high septal deflection in the area of the internal nasal valve. The septum was viewed with the flaps in place and found to be relatively straight. The middle turbinates were visible on both sides. The татьяна transfixion incision was closed using 4-0 chromic and a 4-0 plain gut whip stitch was used to secure the septal flaps. Attention was then directed to the nasal valve area on the right, where the Xsilon nasal airway remodeling system was used to repair the nasal vestibular stenosis. The handpiece was placed superiorly at the caudal margin of the upper lateral cartilage and the device was activated. This was repeated 2 more times marching inferiorly towards the piriform aperture. A similar procedure was done on the left. Attention was then directed to the inferior turbinates. Inferior turbinate reduction was performed using the [employer]on turbinate system. Destruction of submucosal tissue was performed on the left inferior turbinate and then this turbinate was medialized and lateralized using a Sayer elevator. A similar procedure was performed on the right side. Silicon splints coated with bacitracin were placed into each nasal cavity and secured with a 2-0 prolene. Afrin soaked cottonoids were placed into each nasal cavity and secured to each other in front of the nose. The patient was then given back to anesthesia who successfully extubated them. The patient tolerated the procedure well without any complications. Estimated blood loss: 10 mL Fluids: 1000 mL The patient was transferred to the post anesthesia care unit in stable condition with spontaneous respirations.
[2020-05-04] MEDS ORDERED: FENTANYL CITRATE INJ/PF 100 MCG/2 ML AMPUL ONE (12:54)
[2020-05-04] MEDS ORDERED: HYDROCODONE/ACETAMINOPHEN 5-325 MG TABLET ONE (13:34)
[2020-05-04] MEDS ORDERED: HYDROCODONE/ACETAMINOPHEN 5-325 MG (6 TAB/ER DISP) PO PRN (14:04)
[2020-05-04] MEDS ORDERED: SUCCINYLCHOLINE CHLORIDE INJ 200 MG/10 ML VIAL ONE (14:23)
[2020-05-04] MEDS ORDERED: GLYCOPYRROLATE 1 MG/5 ML VIAL ONE (14:23)
[2020-05-04] MEDS ORDERED: ONDANSETRON HCL INJ/PF 4 MG/2 ML SDV ONE (14:23)
[2020-05-04] MEDS ORDERED: METOCLOPRAMIDE HCL INJ/PF 10 MG/2 ML SDV ONE (14:23)
[2020-05-04] MEDS ORDERED: DEXAMETHASONE SOD PHOSPHATE INJ 4 MG/1 ML VIAL ONE (14:23)
[2020-05-04] MEDS ORDERED: ROCURONIUM BROMIDE INJ 50 MG/5 ML VIAL IV ONE (14:23)
[2020-05-04] MEDS ORDERED: DIPHENHYDRAMINE HCL 50 MG/ML VIAL ONE (14:23)
[2020-05-04] MEDS: OXYMETAZOLINE HCL 0.05% NASAL SPRAY 15 ML BOTTLE ONE ×2 (14:25→15:00)
[2020-05-04] MEDS ORDERED: HYDROCODONE/ACETAMINOPHEN 5-325 MG TABLET PO PRN (14:26)
[2020-05-04] MEDS ORDERED: OXYMETAZOLINE HCL 0.05% NASAL SPRAY 15 ML BOTTLE ONE (14:58)
[2020-05-04 16:19] VITALS: BP 162/77
== END 2020-05-04 15:10 | disposition home or self-care (01) ==
LOC: OROUT 08:49
PROVIDERS: ATTEND Otolaryngology
DX: J34.2 Deviated nasal septum (principal); H69.83 Other specified disorders of Eustachian tube, bilateral; J34.89 Other specified disorders of nose and nasal sinuses; K22.4 Dyskinesia of esophagus; J34.3 Hypertrophy of nasal turbinates; G80.9 Cerebral palsy, unspecified; R49.0 Dysphonia; K21.9 Gastro-esophageal reflux disease without esophagitis; J30.9 Allergic rhinitis, unspecified; E05.00 Thyrotoxicosis with diffuse goiter without thyrotoxic crisis or storm; E07.9 Disorder of thyroid, unspecified; Z01.812 Encounter for preprocedural laboratory examination; Z20.828 Contact with and (suspected) exposure to other viral communicable diseases; Z79.899 Other long term (current) drug therapy; Z79.890 Hormone replacement therapy; Z79.891 Long term (current) use of opiate analgesic
CPT/HCPCS: 81025; 30465; 30520; 30140; U0003; J2250; J3490 ×3; C9046; J1100; J1200; J3010; J2765; A9270 ×2; J0330; J2405; J2704; J0690; C9803; 87635; J3301

== ENCOUNTER 2020-05-06 17:39 | Emergency (ER) | payer MEDICARE, MEDICAID ==
--- NOTE | 2020-05-06 18:19 | ER Document Report ---
ED Medical Screen (RME) - General Chief Complaint: Breathing Difficulty Stated Complaint: DIFFICULTY BREATHING/POST NASAL SURG Time Seen by Provider: 05/06/20 18:10 Primary Care Provider: DEEPAK SOLIS FNP [Primary Care Provider] - Follow up as needed Notes: Patient presents after having nasal surgery on 05/04/2020. Patient states she felt something in her nose and is concerned that one of her silicone splints has moved or is malpositioned. Patient reports some congestion symptoms. Patient denies any fever. Patient states she called the on-call after hours number and spoke with someone who advised her to come to the emergency department for further evaluation. Patient had a nasal surgery performed by Dr. Arnett I have greeted and performed a rapid initial assessment of this patient. A comprehensive ED assessment and evaluation of the patient, analysis of test results and completion of the medical decision making process will be conducted by additional ED providers. TRAVEL OUTSIDE OF THE [place] IN LAST 30 DAYS: No - Related Data Allergies/Adverse Reactions: hydromorphone HCl [From Dilaudid] Allergy (Severe, Verified 05/04/20 09:19) promethazine HCl [From Phenergan] Allergy (Severe, Verified 05/04/20 09:19) ketorolac tromethamine [From Toradol] Allergy (Intermediate, Verified 05/04/20 09:19) ibuprofen Adverse Reaction (Verified 05/04/20 09:19) Past Medical History - Past Medical History Cardiac Medical History: Denies: Hx Coronary Artery Disease, Hx Heart Attack, Hx Hypertension Pulmonary Medical History: Reports: Hx Asthma - exercise induced, Hx Bronchitis Denies: Hx COPD, Hx Pneumonia Neurological Medical History: Reports: Hx Migraine. Denies: Hx Cerebrovascular Accident, Hx Seizures Endocrine Medical History: Reports: Hx Hypothyroidism Renal/ Medical History: Reports: Hx Ovarian Cysts. Denies: Hx Peritoneal Dialysis GI Medical History: Reports: Hx Irritable Bowel. Denies: Hx Hepatitis, Hx Hiatal Hernia, Hx Ulcer Musculoskeltal Medical History: Reports Hx Arthritis, Reports Hx Muscle Spasm, Reports Hx Musculoskeletal Deformity - Left leg 1 inch shorter than right Infectious Medical History: Denies: Hx Hepatitis Past Surgical History: Reports: Hx Abdominal Surgery, Hx Adenoidectomy, Hx Cholecystectomy, Hx Gynecologic Surgery - ovarian cyst, Hx Orthopedic Surgery, Hx Thyroid Surgery - 05/24/18, Hx Tonsillectomy. Denies: Hx Hysterectomy, Hx Mastectomy, Hx Open Heart Surgery, Hx Pacemaker - Immunizations Hx Diphtheria, Pertussis, Tetanus Vaccination: Yes Physical Exam - Vital signs Vitals: Temp Pulse Resp BP Pulse Ox 98.4 F 96 18 118/84 97 05/06/20 18:01 05/06/20 18:01 05/06/20 18:01 05/06/20 18:01 05/06/20 18:01 - General General appearance: Appears well, Alert - HEENT Nasal: Swelling, Clear rhinorrhea Course - Vital Signs Vital signs: Temp Pulse Resp BP Pulse Ox 98.4 F 96 18 118/84 97 05/06/20 18:01 05/06/20 18:01 05/06/20 18:01 05/06/20 18:01 05/06/20 18:01 Doctor's Discharge - Discharge Referrals: DEEPAK SOLIS FNP [Primary Care Provider] - Follow up as needed
--- NOTE | 2020-05-06 21:06 | EKG REPORT ---
SEVERITY:- BORDERLINE ECG - SINUS RHYTHM PROBABLE LEFT ATRIAL ABNORMALITY : Confirmed by: Rush Ness MD 06-May-2020 21:05:21
--- NOTE | 2020-05-06 21:41 | ER Document Report ---
HPI - HPI Patient complains to provider of: Nasal congestion Time Seen by Provider: 05/06/20 18:10 Onset: Other - 2 days Onset/Duration: Worse Quality of pain: Achy Pain Level: 4 Context: Patient had surgery to repair a deviated septum 2 days ago. Patient did have silicone splints placed in the nostrils. Patient states that she has had some drainage that has been normal to expect after this type of procedure. Patient states that she has been able to breathe through the nostrils without difficulty whenever she laid down she had increased congestion that caused her to have difficulty breathing through her nose. Patient denies any purulent drainage or fever. Patient denies any trauma to the nose. Patient states she called the on-call number and they advised her to come here for further evaluation. Associated Symptoms: Other - Nasal congestion Exacerbated by: Denies Relieved by: Denies Similar symptoms previously: No Recently seen / treated by doctor: Yes - ROS ROS below otherwise negative: Yes Systems Reviewed and Negative: Yes All other systems reviewed and negative - CONSTITUTIONAL Constitutional: DENIES: Fever, Chills - EENT EENT: REPORTS: Nasal Drainage-Clear, Congestion. DENIES: Nasal Drainage- Purulent - NEURO Neurology: DENIES: Headache - CARDIOVASCULAR Cardiovascular: DENIES: Chest pain - RESPIRATORY Respiratory: DENIES: Coughing - GASTROINTESTINAL Gastrointestinal: DENIES: Nausea, Patient vomiting - REPRODUCTIVE Reproductive: DENIES: : - DERM Skin Color: Normal Skin Problems: None Past Medical History - General Information source: Patient - Social History Smoking Status: Never Smoker Frequency of alcohol use: None Drug Abuse: None Lives with: Family Family History: Reviewed & Not Pertinent, Arthritis, CAD, DM, Hypertension, Malignancy, Thyroid Disfunction, Other - Uncle of an aneurysm - Medical History Medical History: Other - Cerebral palsy Pulmonary Medical History: Reports: Hx Asthma - exercise induced, Hx Bronchitis Denies: Hx COPD, Hx Pneumonia Neurological Medical History: Reports: Hx Migraine. Denies: Hx Cerebrovascular Accident, Hx Seizures Endocrine Medical History: Reports: Hx Hypothyroidism Renal/ Medical History: Reports: Hx Ovarian Cysts. Denies: Hx Peritoneal Dialysis GI Medical History: Reports: Hx Irritable Bowel. Denies: Hx Hepatitis, Hx Hiatal Hernia, Hx Ulcer Musculoskeletal Medical History: Reports Hx Arthritis, Reports Hx Muscle Spasm, Reports Hx Musculoskeletal Deformity - Left leg 1 inch shorter than right Infectious Medical History: Denies: Hx Hepatitis Past Surgical History: Reports: Hx Abdominal Surgery, Hx Adenoidectomy, Hx Cholecystectomy, Hx Gynecologic Surgery - ovarian cyst, Hx Orthopedic Surgery, Hx Thyroid Surgery - 05/24/18, Hx Tonsillectomy - Immunizations Hx Diphtheria, Pertussis, Tetanus Vaccination: Yes Vertical Provider Document - CONSTITUTIONAL Agree With Documented VS: Yes Exam Limitations: No Limitations General Appearance: WD/WN, No Apparent Distress - INFECTION CONTROL TRAVEL OUTSIDE OF THE [place] IN LAST 30 DAYS: No - HEENT HEENT: Atraumatic, Normocephalic. negative: Pharyngeal Exudate, Pharyngeal Tenderness, Pharyngeal Erythema, Tympanic Membrane Red, Tympanic Membrane Bulging Notes: Patient with swelling to bilateral nostrils with clear nasal discharge, patient with silicone splints noted to nostrils bilaterally. - NECK Neck: Normal Inspection, Supple - RESPIRATORY Respiratory: Breath Sounds Normal, No Respiratory Distress - CARDIOVASCULAR Cardiovascular: Regular Rate, Regular Rhythm - BACK Back: Normal Inspection - MUSCULOSKELETAL/EXTREMETIES Musculoskeletal/Extremeties: MAEW - NEURO Level of Consciousness: Awake, Alert, Appropriate Motor/Sensory: No Motor Deficit - DERM Integumentary: Warm, Dry, No Rash Course - Re-evaluation Re-evalutation: 05/06/20 21:40 Consulted with patient's surgeon Dr Arnett regarding patient presentation and evaluation here in the emergency department. He advises encouraging patient to continue to use saline nasal spray and to sleep propped up. Patient does have a follow-up appointment that she should keep as planned. 05/06/20 21:46 Patient nontoxic in appearance, respirations even unlabored. Patient states that due to her nasal congestion it causes her to have difficulty breathing when she sleeps as she typically breathes through her nose and not through her mouth. Patient denies any cough or fever. Patient denies any concerns about Covid. Patient encouraged to return as needed for any new or worsening symptoms. Patient is agreeable with discharge plan of care at this time. - Vital Signs Vital signs: Temp Pulse Resp BP Pulse Ox 98.4 F 96 18 118/84 97 05/06/20 18:01 05/06/20 18:01 05/06/20 18:01 05/06/20 18:01 05/06/20 18:01 - Laboratory Results Critical Laboratory Results Reviewed: No Critical Results - Radiology Results Critical Radiology Results Reviewed: No Critical Results - EKG Interpretation by Me EKG shows normal: Sinus rhythm Rate: Normal When compared to previous EKG there are: Previous EKG unavailable Additional EKG results interpreted by me: 05/06/20 21:41 Sinus rhythm with a rate of 90, QTc 455, no acute ischemic changes Discharge - Discharge Clinical Impression: Nasal congestion, History of nasal surgery Condition: Stable Disposition: HOME, SELF-CARE Additional Instructions: Return immediately for any new or worsening symptoms Followup with your ENT surgeon as planned Continue to use saline nasal spray to help with your congestion symptoms. Your doctor also advises sleeping propped up to help with your symptoms at night. Referrals: DEEPAK SOLIS FNP [Primary Care Provider] - Follow up as needed DAVID ARNETT MD [ACTIVE STAFF] - Follow up as needed
[2020-05-06 21:48] VITALS: BP 123/82
== END 2020-05-06 22:00 | disposition home or self-care (01) ==
LOC: ER 17:39
DX: R09.81 Nasal congestion (principal); Z98.890 Other specified postprocedural states; J45.909 Unspecified asthma, uncomplicated; G80.9 Cerebral palsy, unspecified
CPT/HCPCS: 93005; 93010; 99283

== ENCOUNTER 2020-05-19 15:39 | Emergency (ER) | payer MEDICARE, MEDICAID ==
--- NOTE | 2020-05-19 17:49 | RADIOLOGY REPORT (SQ) ---
EXAM DESCRIPTION: CHEST 2 VIEWS IMAGES COMPLETED DATE/TIME: 05/19/2020 5:30 pm REASON FOR STUDY: shortness of breath COMPARISON: 02/18/2019 EXAM PARAMETERS: NUMBER OF VIEWS: two views TECHNIQUE: Digital Frontal and Lateral radiographic views of the chest acquired. RADIATION DOSE: NA LIMITATIONS: none FINDINGS: LUNGS AND PLEURA: No opacities, masses or pneumothorax. No pleural effusion. MEDIASTINUM AND HILAR STRUCTURES: No masses or contour abnormalities. HEART AND VASCULAR STRUCTURES: Heart normal size. No evidence for failure. BONES: No acute findings. HARDWARE: None in the chest. OTHER: No other significant finding. IMPRESSION: NO ACUTE RADIOGRAPHIC FINDING IN THE CHEST. TECHNICAL DOCUMENTATION: JOB ID: [id number] 2010 [employer]- All Rights Reserved Reading location - IP/workstation name: [email or web address]
--- NOTE | 2020-05-19 19:37 | ER Document Report ---
ED Medical Screen (RME) - General Chief Complaint: Trouble breathing Stated Complaint: DIFFICULTY BREATHING Time Seen by Provider: 05/19/20 17:04 Primary Care Provider: DEEPAK SOLIS FNP [Primary Care Provider] - Follow up as needed Mode of Arrival: Ambulatory Information source: Patient Notes: 34-year-old female patient presenting to the emergency department concern for shortness of breath. Patient reports she had done for a nasal reconstruction approximately 2 weeks ago. She states last week she had some pain in the back of her leg, she has now had shortness of breath for several days. She does report a history of pleurisy. She denies any fever or chills. Lung sounds clear and equal bilaterally. Patient denies any recent travel, denies use of any oral contraceptives. No history of PE. I have greeted and performed a rapid initial assessment of this patient. A comprehensive ED assessment and evaluation of the patient, analysis of test results and completion of the medical decision making process will be conducted by additional ED providers. I have specifically instructed the patient or family members with the patient to immediately return to any nursing staff should anything change in the patient's condition or with their chief complaint. TRAVEL OUTSIDE OF THE [place] IN LAST 30 DAYS: No - Related Data Allergies/Adverse Reactions: hydromorphone HCl [From Dilaudid] Allergy (Severe, Verified 05/04/20 09:19) promethazine HCl [From Phenergan] Allergy (Severe, Verified 05/04/20 09:19) ketorolac tromethamine [From Toradol] Allergy (Intermediate, Verified 05/04/20 09:19) ibuprofen Adverse Reaction (Verified 05/04/20 09:19) Past Medical History - Past Medical History Cardiac Medical History: Denies: Hx Coronary Artery Disease, Hx Heart Attack, Hx Hypertension Pulmonary Medical History: Reports: Hx Asthma - exercise induced, Hx Bronchitis Denies: Hx COPD, Hx Pneumonia Neurological Medical History: Reports: Hx Migraine. Denies: Hx Cerebrovascular Accident, Hx Seizures Endocrine Medical History: Reports: Hx Hypothyroidism Renal/ Medical History: Reports: Hx Ovarian Cysts. Denies: Hx Peritoneal Dialysis GI Medical History: Reports: Hx Irritable Bowel. Denies: Hx Hepatitis, Hx Hiatal Hernia, Hx Ulcer Musculoskeltal Medical History: Reports Hx Arthritis, Reports Hx Muscle Spasm, Reports Hx Musculoskeletal Deformity - Left leg 1 inch shorter than right Infectious Medical History: Denies: Hx Hepatitis Past Surgical History: Reports: Hx Abdominal Surgery, Hx Adenoidectomy, Hx Cholecystectomy, Hx Gynecologic Surgery - ovarian cyst, Hx Orthopedic Surgery, Hx Thyroid Surgery - 05/24/18, Hx Tonsillectomy. Denies: Hx Hysterectomy, Hx Mastectomy, Hx Open Heart Surgery, Hx Pacemaker - Immunizations Hx Diphtheria, Pertussis, Tetanus Vaccination: Yes Physical Exam - Vital signs Vitals: Temp Pulse Resp BP Pulse Ox 98.4 F 56 L 22 H 123/94 H 91 L 05/19/20 15:45 05/19/20 15:45 05/19/20 15:45 05/19/20 15:45 05/19/20 15:45 Course - Vital Signs Vital signs: Temp Pulse Resp BP Pulse Ox 98.4 F 56 L 22 H 123/94 H 91 L 05/19/20 15:45 05/19/20 15:45 05/19/20 15:45 05/19/20 15:45 05/19/20 15:45 - Laboratory Results Result Diagrams: 05/19/20 19:46 05/19/20 19:46 Doctor's Discharge - Discharge Referrals: DEEPAK SOLIS FNP [Primary Care Provider] - Follow up as needed
[2020-05-19 20:04] LABS: ABSOLUTE EOSINOPHILS # (AUTO) 0.1 10^3/uL (0.0-0.6); ABSOLUTE LYMPHOCYTES (AUTO) 3.3 10^3/uL (0.5-4.7); ABSOLUTE MONOCYTES (AUTO) 0.5 10^3/uL (0.1-1.4); ABSOLUTE NEUT (AUTO) 5.5 10^3/uL (1.7-8.2); BASOPHILS % (AUTO) 0.5 % (0-2); EOSINOPHILS % (AUTO) 0.8 % (0-6); HEMATOCRIT 37.3 % (36.0-47.0); HEMOGLOBIN 12.9 g/dL (12.0-15.5); LYMPHOCYTES % (AUTO) 35.1 % (13-45); MEAN CORPUSCULAR HEMOGLOBIN 31.7 pg (27.0-33.4); MEAN CORPUSCULAR HGB CONC 34.7 g/dL (32.0-36.0); MEAN CORPUSCULAR VOLUME 91 fl (80-97); MONOCYTES % (AUTO) 5.7 % (3-13); PLATELET COUNT 297 10^3/uL (150-450); RED BLOOD COUNT 4.07 10^6/uL (3.72-5.28); RED CELL DISTRIBUTION WIDTH 12.1 % (11.5-14.0); SEGMENTED NEUTROPHILS % (AUTO) 57.9 % (42-78); TOTAL CELLS COUNTED % (AUTO) 100 %; WHITE BLOOD COUNT 9.5 10^3/uL (4.0-10.5)
[2020-05-19 20:07] LABS: INTERNATIONAL RATION (INR) 0.99; PROTHROMBIN TIME 13.3 SEC (11.4-15.4)
[2020-05-19 20:08] LABS: PARTIAL THROMBOPLASTIN TIME 33.1 SEC (23.5-35.8)
[2020-05-19 20:11] LABS: D-DIMER 0.33 ug/mL (0.00-0.50)
[2020-05-19 20:16] LABS: ALBUMIN 4.8 g/dL (3.5-5.0); ALKALINE PHOSPHATASE 90 U/L (38-126); ANION GAP 10 (5-19); ASPARTATE AMINO TRANSFERASE 32 U/L (14-36); BILIRUBIN,DIRECT 0.2 mg/dL (0.0-0.4); BILIRUBIN,TOTAL 0.4 mg/dL (0.2-1.3); BLOOD UREA NITROGEN 16 mg/dL (7-20); CALCIUM 9.6 mg/dL (8.4-10.2); CARBON DIOXIDE 27 mmol/L (22-30); CHLORIDE 104 mmol/L (98-107); GLUCOSE 86 mg/dL (75-110); POTASSIUM 4.1 mmol/L (3.6-5.0); TOTAL PROTEIN 8.2 g/dL (6.3-8.2)
[2020-05-20] MEDS ORDERED: ONDANSETRON HCL INJ/PF 4 MG/2 ML SDV IV PRN (00:19)
[2020-05-20] MEDS ORDERED: DIPHENHYDRAMINE HCL 50 MG/ML VIAL ONE (00:33)
[2020-05-20] MEDS ORDERED: FAMOTIDINE INJ/PF 20 MG/2 ML SDV IV ONE ×2 (00:34→00:36)
[2020-05-20] MEDS ORDERED: METHYLPREDNISOLONE INJ 125 MG/2 ML SDV ONE (00:34)
[2020-05-20] MEDS ORDERED: DIPHENHYDRAMINE HCL 50 MG/ML VIAL IV ONE (00:36)
--- NOTE | 2020-05-20 01:00 | RADIOLOGY REPORT (SQ) ---
CLINICAL INDICATION: Shortness of breath. Chest pain. . TECHNIQUE: CT arteriography was obtained of the chest with multiplanar MIP and/or 3-D angiographic reconstructions. This exam was performed according to our departmental dose-optimization program, which includes automated exposure control, adjustment of the mA and/or kV according to patient size and/or use of iterative reconstruction techniques. COMPARISON: None. CORRELATION: None. FINDINGS: Heterogeneous contrast bolus. Average Hounsfield unit measurement within main pulmonary artery segment of 303. Artifact from venous opacification. There is no evidence of pulmonary embolus. Thoracic aorta is of normal caliber. The heart is top normal. No pericardial effusion. No bulky mediastinal adenopathy. The lungs are grossly clear. No consolidation or edema. No effusion or pneumothorax. Detail obscured by motion Visualized abdominal contents demonstrate the gallbladder is surgically absent. Visualized bones are unremarkable. IMPRESSION: No evidence of pulmonary embolus. Lungs grossly clear .
[2020-05-20 02:15] VITALS: BP 117/74
[2020-05-20] MEDS ORDERED: ALBUTEROL SULFATE HFA (90 MCG/PUFF) 8 GM MDI (1 MDI/ER DISP) IH ONE (02:17)
--- NOTE | 2020-05-20 02:20 | ER Document Report ---
ED General - General Chief Complaint: Trouble breathing Stated Complaint: DIFFICULTY BREATHING Time Seen by Provider: 05/19/20 17:04 Primary Care Provider: DEEPAK SOLIS FNP [Primary Care Provider] - Follow up in 3-5 days Mode of Arrival: Ambulatory Notes: 34-year-old female history of cerebral palsy, angioedema, mild intermittent asthma presents with shortness of breath since she has any deviated nasal septum repair 1 week ago. Patient says after she woke up from surgery she felt short of breath and had diffuse chest discomfort when she took a deep breath which has persisted. Patient's mother of a pulmonary embolism so patient was worried about PE and presented to the ED. Symptoms have not worsened or improved over this week. Patient denies exertional chest pain, cardiac history, hypertension, hyperlipidemia, diabetes, lower extremity edema (says that she woke up from surgery with bilateral lower leg pain which got better over the next day), estrogen use, sensation of throat tightness, edema anywhere TRAVEL OUTSIDE OF THE [place] IN LAST 30 DAYS: No - Related Data Allergies/Adverse Reactions: hydromorphone HCl [From Dilaudid] Allergy (Severe, Verified 05/04/20 09:19) promethazine HCl [From Phenergan] Allergy (Severe, Verified 05/04/20 09:19) ketorolac tromethamine [From Toradol] Allergy (Intermediate, Verified 05/04/20 09:19) ibuprofen Adverse Reaction (Verified 05/04/20 09:19) Past Medical History - General Information source: Patient - Social History Smoking Status: Unknown if Ever Smoked Family History: Reviewed & Not Pertinent, Arthritis, CAD, DM, Hypertension, Malignancy, Thyroid Disfunction, Other - Uncle of an aneurysm Patient has homicidal ideation: No - Past Medical History Cardiac Medical History: Denies: Hx Coronary Artery Disease, Hx Heart Attack, Hx Hypertension Pulmonary Medical History: Reports: Hx Bronchitis Denies: Hx COPD, Hx Pneumonia Comment Only: Hx Asthma - exercise induced Neurological Medical History: Reports: Hx Migraine. Denies: Hx Cerebrovascular Accident, Hx Seizures Endocrine Medical History: Reports: Hx Hypothyroidism Renal/ Medical History: Reports: Hx Ovarian Cysts. Denies: Hx Peritoneal Dialysis GI Medical History: Reports: Hx Irritable Bowel. Denies: Hx Hepatitis, Hx Hiatal Hernia, Hx Ulcer Musculoskeletal Medical History: Reports Hx Arthritis, Reports Hx Muscle Spasm, Reports Hx Musculoskeletal Deformity - Left leg 1 inch shorter than right Infectious Medical History: Denies: Hx Hepatitis Past Surgical History: Reports: Hx Abdominal Surgery, Hx Adenoidectomy, Hx Cholecystectomy, Hx Gynecologic Surgery - ovarian cyst, Hx Nose Surgery, Hx Orthopedic Surgery, Hx Thyroid Surgery - 05/24/18, Hx Tonsillectomy. Denies: Hx Hysterectomy, Hx Mastectomy, Hx Open Heart Surgery, Hx Pacemaker - Immunizations Hx Diphtheria, Pertussis, Tetanus Vaccination: Yes Review of Systems - Review of Systems Notes: REVIEW OF SYSTEMS: CONSTITUTIONAL : Denies fever, chills, or sweats. EENT: Denies recent cold/sinus symptoms, + throat pain CARDIOVASCULAR: + chest pain, -GIUSEPPE RESPIRATORY: Denies cough, + shortness of breath. GASTROINTESTINAL: Denies abdominal pain, nausea/vomiting. GENITOURINARY: Denies difficulty urinating, painful urination. FEMALE GENITOURINARY: Denies abnormal vaginal bleeding, vaginal discharge. MUSCULOSKELETAL: Denies neck pain, back pain. SKIN: Denies rash or skin lesions. HEMATOLOGIC : Denies easy bruising or bleeding. LYMPHATIC: Denies swollen, enlarged glands. NEUROLOGICAL: Denies headache, denies change in gait. PSYCHIATRIC: Denies anxiety or stress or depression. Physical Exam - Vital signs Vitals: Temp Pulse Resp BP Pulse Ox 98.4 F 56 L 22 H 123/94 H 91 L 05/19/20 15:45 05/19/20 15:45 05/19/20 15:45 05/19/20 15:45 05/19/20 15:45 - Notes Notes: PHYSICAL EXAMINATION: GENERAL: Well-appearing, well-nourished and in no acute distress. HEAD: Atraumatic, jaw deformity and abnormal voice EYES: Pupils equal round and appropriate constriction, sclera anicteric, conjunctiva are normal. ENT: nares patent, moist mucous membranes. noisy upper airway sounds with mild posterior pharyngeal fullness without any erythema, discharge, floor of mouth abnormalities, or trismus NECK: Normal range of motion, supple without lymphadenopathy, no goiter LUNGS: Breath sounds clear to auscultation bilaterally and equal. No wheezes rales, or stridor, rhonchi, normal respiratory rate and effort, speaking in full sentences HEART: Regular rate and rhythm without murmurs ABDOMEN: Soft, nontender, no guarding, no masses, no CVAT EXTREMITIES: Normal range of motion, no pitting or edema. No cyanosis. NEUROLOGICAL: Awake, alert, conversing appropriately, mild left arm contracture PSYCH: Normal mood, normal affect. SKIN: Warm, Dry, normal turgor, no rashes or lesions noted. Course - Re-evaluation Re-evalutation: 05/20/20 06:37 Patient with a week of shortness of breath when breathing through mouth and diffuse pleuritic chest pain after being intubated for nasal septum repair. Some posterior pharyngeal fullness which is consistent with patient's reported history of pharyngeal muscle dysfunction may be contributing to current symptoms. Patient has normal vital signs and normal respiratory effort on exam, clear lungs, unlikely exacerbation of her asthma. Given high suspicion for PE given family history and surgery I obtained a CTA chest which did not show any pulmonary embolism or any other abnormalities. Patient felt reassured and given that shortness of breath has been present for 1 week and no signs of respiratory distress appropriate for follow-up with ENT and primary doctor. May also be related to sequelae of intubation. Gave extensive return to ED precautions, I gave patient refill of her albuterol inhaler which she had run out of. Patient was in agreement with plan and denied having any cardiac concerns at time of discharge. No ACS risk factors and presentation not consistent and no indication to rule out in this patient by means other than clinical gestalt. - Vital Signs Vital signs: Temp Pulse Resp BP Pulse Ox 98 F 56 L 14 117/74 98 05/20/20 00:01 05/19/20 15:45 05/20/20 02:01 05/20/20 02:01 05/20/20 02:01 - Laboratory Results Result Diagrams: 05/19/20 19:46 05/19/20 19:46 Critical Laboratory Results Reviewed: No Critical Results - Radiology Results Critical Radiology Results Reviewed: No Critical Results - EKG Interpretation by Me Additional EKG results interpreted by me: 05/20/20 06:39 Sinus rhythm, no significant ST elevations or depressions, no significant T wave abnormalities Discharge - Discharge Clinical Impression: Shortness of breath Disposition: HOME, SELF-CARE Additional Instructions: Call your ENT doctor tomorrow to arrange follow-up within the next 3 days. Follow-up with your primary doctor within 1 week. If you have any worsening symptoms, dizziness, confusion, fever of 100.4 or higher, worsening shortness of breath, fainting, or any other worsening or alarming symptoms return to the emergency department immediately. Forms: Return to School, Return to Work Referrals: DEEPAK SOLIS FNP [Primary Care Provider] - Follow up in 3-5 days
--- NOTE | 2020-05-20 08:33 | EKG REPORT ---
SEVERITY:- OTHERWISE NORMAL ECG - SINUS TACHYCARDIA : Confirmed by: Debbie Riley MD 20-May-2020 08:33:02
--- NOTE | 2020-05-20 23:21 | ER Document Report ---
Doctor's Note Notes: 05/20/20 23:19 Late Addendum: Patient had pruritus of the bilateral arms after she had IV contrast. Patient did not develop any shortness of breath associate with this reaction, had no hives, gave Benadryl and Pepcid and symptoms resolved after approximately 20 minutes. Observe patient additional hour in the ED and never developed any other allergic reaction symptoms. Requested that [facility] Anais add IV contrast pruritus to her list of allergies.
== END 2020-05-20 03:00 | disposition home or self-care (01) ==
LOC: ER 15:39
DX: R06.02 Shortness of breath (principal); R07.9 Chest pain, unspecified; G80.9 Cerebral palsy, unspecified; Z88.8 Allergy status to other drugs, medicaments and biological substances
CPT/HCPCS: 93005; 99285; 96374; 96375; 36415; 84703; 85025; 85610; 85730; 80053; 85379; 71046; 71275; 93010; J1200; S0028; A9270; J3490